=== PATIENT | female | born 1940 | race Caucasian/White ===

== ENCOUNTER 2019-01-22 13:51 | Observation (INO) | payer OTHER, BC ==
[2019-01-22] MEDS ORDERED: NA CHLORIDE 0.9% 1,000 ML ONE (14:15)
[2019-01-22 14:31] LABS: Absolute Lymphocytes (CBC) 2.3 K/uL (0.7-4.9); Basophils % 1.1 % (0-1.3); Hematocrit 34.1 % (36.0-45.0); Lymphocytes % 22.2 % (15.3-44.8); MPV 7.4 fL (7.6-11.3); RBC Red Blood Cell Count 3.66 M/uL (3.86-4.86)
[2019-01-22 14:36] LABS: Protime INR 1.24
[2019-01-22 14:49] LABS: ALT/SGPT 19 U/L (12-78); AST/SGOT 24 U/L (15-37); Albumin 2.6 g/dL (3.4-5.0); Alkaline Phosphatase 46 U/L (45-117); BUN Blood Urea Nitrogen 11 mg/dL (7-18); Bicarbonate 28 mmol/L (21-32); Bilirubin Direct 0.3 mg/dL (0-0.2); Bilirubin Total 0.8 mg/dL (0.2-1.0); Creatine Phosphokinase 58 U/L (26-192); Glucose Level 131 mg/dL (74-106); Lipase 62 U/L (73-393); Potassium 3.5 mmol/L (3.5-5.1); Protein, Total 6.2 g/dL (6.4-8.2); Sodium Level 135 mmol/L (136-145)
[2019-01-22 14:50] LABS: CKMB Creatine Kinase MB < 1.0 ng/mL (0.3-3.6); Troponin (Emerg Dept Use Only) 0.16 ng/mL (0.0-0.045)
--- NOTE | 2019-01-22 15:03 | RAD REPORT ---
EXAM DESCRIPTION: RAD - Chest Single View - 01/22/2019 2:33 pm CLINICAL HISTORY: Cough, shortness of breath COMPARISON: January 2011 TECHNIQUE: AP portable chest image was obtained 1430 hours . FINDINGS: Lung volumes are very low accentuating interstitial pattern. This could easily mask inters titial edema or infiltrate. No focal consolidation. Significant failure or volume overload are doubtf ul. Heart and vasculature are normal. No measurable pleural effusion and no pneumothorax. No acute eb ne finding. Right shoulder prosthesis in place. Severe left shoulder degenerative change present. Def ibrillator in place. No acute aortic findings suspected. IMPRESSION: Limited shallow inspiration film potentially masking early interstitial edema or infiltr ate.
[2019-01-22 15:05] LABS: Platelet Estimate ADEQ; Platelets, Giant PRESENT
[2019-01-22 15:06] LABS: Blood Morphology Comment NOT SEEN (NOT SEEN)
--- NOTE | 2019-01-22 15:50 | RAD REPORT ---
EXAM DESCRIPTION: CT - Head C Spine Cap Wo Con - 01/22/2019 3:39 pm CLINICAL HISTORY: Trauma, head and neck injury. Chest, abdomen and pelvis pain. Pain;Weakness COMPARISON: Chest Single View dated 01/22/2019 TECHNIQUE: CT head without contrast. CT cervical spine without contrast with coronal and sagittal reformatted images. CT chest, abdomen and pelvis without contrast with coronal and sagittal reformatted images of the spi ne. All CT scans are performed using dose optimization technique as appropriate and may include automated exposure control or mA/KV adjustment according to patient size. FINDINGS: CT HEAD WITHOUT CONTRAST: No intracranial hemorrhage, hydrocephalus or extra-axial fluid collection. Mild brain atrophy. No are as of brain edema or midline shift. Multifocal opacification is seen of the paranasal sinuses compatible with sinusitis. The calvarium is intact. CT CERVICAL SPINE WITHOUT CONTRAST: No acute fracture or subluxation. Moderate multilevel degenerative change throughout the cervical spi ne with mild degenerative anterolisthesis of C3 on 4, C4 on 5. Disc thinning with posterior osteophyt e formation noted C5-6 and C6-7. The prevertebral soft tissues are normal in thickness. CT CHEST, ABDOMEN, PELVIS WITHOUT CONTRAST: NOTE: Lack of contrast is a significant limitation in the assessment of trauma related findings. Spec ifically, solid organ, vascular and bowel evaluation is significantly limited. Interstitial opacities in both lungs noted probably representing mild interstitial pulmonary edema.Sm all bilateral pleural effusions are noted. Cardiac size is normal pacemaker wires present. No evidence of intra-abdominal visceral injury, free fluid or free air is seen within the above detai led limitations. No concerning pelvic findings. Advanced multilevel degenerative change throughout the thoracic and lumbar spine. Anterior wedge comp ression deformity of L4 is noted, age undetermined. Vacuum disc degeneration is present. IMPRESSION: Multifocal sinusitis. Mild CHF versus volume overload. Prominent degenerative change throughout the spine with anterior wedge deformity of L4, age undetermi cosmo but favored be chronic.
[2019-01-22] MEDS ORDERED: PANTOPRAZOLE 40 MG INJ ONE (15:51)
[2019-01-22] MEDS ORDERED: CEFEPIME 1 GM/100 ML BAG IV ONE (15:51)
[2019-01-22] MEDS ORDERED: HYDROCORTISONE SUC 100 MG INJ ONE (15:51)
--- NOTE | 2019-01-22 16:39 | EDPHYS ---
Physician Documentation [facility] Name: Dayana Sumner Age: 78 yrs Sex: Female : 1940 Arrival Date: 01/22/2019 Time: 13:52 Bed 6 Private MD: ED Physician Fernando Troy HPI: 01/22 15:15 This 78 yrs old Female presents to ER via EMS with complaints of Dizziness. devonte 15:15 The patient presents with dizziness. Onset: The symptoms/episode began/occurred 3 devonte day(s) ago. Context: occurred at home. Modifying factors: The symptoms are alleviated by nothing, the symptoms are aggravated by nothing. Associated signs and symptoms: Pertinent positives: abdominal pain, headache, near-syncope, shortness of breath. Patient's baseline: Neuro: alert and fully oriented. The patient has experienced similar episodes in the past, several times. Historical: - Allergies: 14:04 Codeine; ph - Home Meds: 14:04 Januvia oral oral [Active]; gabapentin oral oral [Active]; BP med [Active]; ph - PMHx: 14:04 Diabetes - NIDDM; Hypertension; neuropathy; ph - Immunization history:: Adult Immunizations unknown. - Social history:: Smoking status: Patient/guardian denies using tobacco. - Ebola Screening: : No symptoms or risks identified at this time. - Family history:: not pertinent. ROS: 15:15 Eyes: Negative for injury, pain, redness, and discharge, ENT: Negative for injury, devonte pain, and discharge, Neck: Negative for injury, pain, and swelling, Cardiovascular: Negative for chest pain, palpitations, and edema, Back: Negative for injury and pain, : Negative for injury, bleeding, discharge, and swelling, MS/Extremity: Negative for injury and deformity, Skin: Negative for injury, rash, and discoloration, Neuro: Negative for headache, weakness, numbness, tingling, and seizure, Psych: Negative for depression, anxiety, suicide ideation, homicidal ideation, and hallucinations, Allergy/Immunology: Negative for hives, rash, and allergies, Endocrine: Negative for neck swelling, polydipsia, polyuria, polyphagia, and marked weight changes, Hematologic/Lymphatic: Negative for swollen nodes, abnormal bleeding, and unusual bruising. 15:15 Respiratory: Positive for cough, shortness of breath. 15:15 Abdomen/GI: Positive for abdominal pain, abdominal cramps, abdominal distension. Exam: 15:15 Head/Face: Normocephalic, atraumatic. Eyes: Pupils equal round and reactive to light, devonte extra-ocular motions intact. Lids and lashes normal. Conjunctiva and sclera are non-icteric and not injected. Cornea within normal limits. Periorbital areas with no swelling, redness, or edema. ENT: Nares patent. No nasal discharge, no septal abnormalities noted. Tympanic membranes are normal and external auditory canals are clear. Oropharynx with no redness, swelling, or masses, exudates, or evidence of obstruction, uvula midline. Mucous membranes moist. Neck: Trachea midline, no thyromegaly or masses palpated, and no cervical lymphadenopathy. Supple, full range of motion without nuchal rigidity, or vertebral point tenderness. No Meningismus. Chest/axilla: Normal chest wall appearance and motion. Nontender with no deformity. No lesions are appreciated. Cardiovascular: Regular rate and rhythm with a normal S1 and S2. No gallops, murmurs, or rubs. Normal PMI, no JVD. No pulse deficits. Respiratory: Lungs have equal breath sounds bilaterally, clear to auscultation and percussion. No rales, rhonchi or wheezes noted. No increased work of breathing, no retractions or nasal flaring. Back: No spinal tenderness. No costovertebral tenderness. Full range of motion. Female : Normal external genitalia. MS/ Extremity: Pulses equal, no cyanosis. Neurovascular intact. Full, normal range of motion. Neuro: Awake and alert, GCS 15, oriented to person, place, time, and situation. Cranial nerves II-XII grossly intact. Motor strength 5/5 in all extremities. Sensory grossly intact. Cerebellar exam normal. Normal gait. Psych: Awake, alert, with orientation to person, place and time. Behavior, mood, and affect are within normal limits. 15:15 Abdomen/GI: Inspection: distension, Bowel sounds: normal, Palpation: mild abdominal tenderness, in all quadrants, Liver: no appreciated palpable abnormalities, Hernia: not appreciated. Vital Signs: 14:00 BP 88 / 57; Pulse 83; Resp 18; Temp 101.2(O); Pulse Ox 85% on R/A; Weight 62.6 kg; ph Height 4 ft. 9 in. (144.78 cm); Pain 0/10; 14:54 BP 93 / 59; Pulse 74; Resp 20; Temp 98.8(O); Pulse Ox 96% on 2 lpm NC; ph 16:50 BP 93 / 58; Pulse 70; Resp 15; Pulse Ox 97% on 2 lpm NC; em1 17:44 BP 91 / 54; Pulse 76; Resp 20; Pulse Ox 96% on 2 lpm NC; ph 18:10 BP 110 / 68; Pulse 71; Resp 20; Temp 98.4; Pulse Ox 97% on 2 lpm NC; ph 14:00 Body Mass Index 29.86 (62.60 kg, 144.78 cm) ph MDM: 13:53 Patient medically screened. [facility] 15:21 Data reviewed: vital signs, nurses notes, lab test result(s), EKG, radiologic studies, [facility] CT scan, plain films. 01/22 14:09 Order name: Basic Metabolic Panel; Complete Time: 15:12 ph 01/22 14:09 Order name: Blood Culture Adult (2) ph 01/22 14:09 Order name: CBC with Diff; Complete Time: 15:12 ph 01/22 14:09 Order name: Ckmb; Complete Time: 15:12 ph 01/22 14:09 Order name: CPK; Complete Time: 15:12 ph 01/22 14:09 Order name: Lactate; Complete Time: 15:12 ph 01/22 14:09 Order name: LFT's; Complete Time: 15:12 ph 01/22 14:09 Order name: Lipase; Complete Time: 15:12 ph 01/22 14:09 Order name: Procalcitonin; Complete Time: 16:33 ph 01/22 14:09 Order name: Protime (+inr); Complete Time: 15:12 ph 01/22 14:09 Order name: Ptt, Activated; Complete Time: 15:12 ph 01/22 14:09 Order name: Troponin (emerg Dept Use Only); Complete Time: 15:12 ph 01/22 14:09 Order name: Urine Microscopic Only; Complete Time: 18:10 ph 01/22 14:24 Order name: Glucose, Ancillary Testing; Complete Time: 15:12 EDMS 01/22 14:09 Order name: Chest Single View XRAY; Complete Time: 15:12 ph 01/22 15:06 Order name: Manual Differential; Complete Time: 15:12 EDMS 01/22 15:12 Order name: Urine Culture [facility] 01/22 15:12 Order name: Type And Screen; Complete Time: 17:21 devonte 01/22 15:22 Order name: CT Traumagram (Head C Spine CAP wo con); Complete Time: 16:33 devonte 01/22 16:34 Order name: Magnesium; Complete Time: 17:21 devonte 01/22 16:34 Order name: NT PRO-BNP; Complete Time: 17:21 devonte 01/22 16:39 Order name: Influenza Screen (a \T\ B); Complete Time: 18:10 devonte 01/22 16:46 Order name: Echo w/ Doppler [facility] 01/22 16:48 Order name: Urine Dipstick--Ancillary (enter results); Complete Time: 17:21 01/22 14:09 Order name: Accucheck; Complete Time: 14:17 ph 01/22 14:09 Order name: Cardiac monitoring; Complete Time: 14:09 ph 01/22 14:09 Order name: EKG - Nurse/Tech; Complete Time: 14:49 ph 01/22 14:09 Order name: IV Saline Lock - Large Bore; Complete Time: 14:09 ph 01/22 14:09 Order name: Labs collected and sent; Complete Time: 14:17 ph 01/22 14:09 Order name: O2 Per Protocol; Complete Time: 14:09 ph 01/22 14:09 Order name: O2 Sat Monitoring; Complete Time: 14:09 ph 01/22 14:09 Order name: Urine Dipstick-Ancillary (obtain specimen); Complete Time: 16:39 ph 01/22 16:34 Order name: EKG; Complete Time: 16:34 devonte 01/22 16:34 Order name: IV Saline Lock; Complete Time: 17:37 devonte Administered Medications: 14:17 Drug: NS 0.9% (30 ml/kg) 30 ml/kg {Note: pt to recieve 1800 mL.} Route: IV; Rate: ph bolus; Site: right wrist; 16:45 Follow up: Response: No adverse reaction; IV Status: Completed infusion ph 16:08 Drug: ProTONIX 40 mg Route: IVP; Site: right wrist; ph 17:44 Follow up: Response: No adverse reaction ph 16:11 Drug: Solu-CORTEF 100 mg Route: IVP; Site: right wrist; ph 17:44 Follow up: Response: No adverse reaction ph 16:11 Not Given (given by EMS): Tylenol 650 mg PO once ph 16:12 Drug: Cefepime 1 grams Route: IVPB; Rate: 200 ml/hr; Infused Over: 30 mins; Site: right ph wrist; 16:45 Follow up: Response: No adverse reaction; IV Status: Completed infusion ph 17:34 Drug: Aspirin 162 mg Route: PO; ph 17:43 Follow up: Response: No adverse reaction ph 18:21 Drug: Lasix 40 mg Route: IVP; Site: right wrist; ph 18:30 Follow up: Response: No adverse reaction ph 18:22 Drug: vancoMYCIN 1 grams Route: IVPB; Infused Over: 2 hrs; Site: right wrist; ph 18:30 Follow up: Response: No adverse reaction; IV Status: Infusion continued upon admission ph Point of Care Testing: Blood Glucose: 14:15 Blood Glucose: 134 mg/dL; ph Ranges: Critical Glucose Levels:Adult <50 mg/dl or >400 mg/dl <40 mg/dl or >180 mg/dl Disposition: 01/22/19 16:38 Hospitalization ordered by Veronica Montano for Inpatient Admission. Preliminary diagnosis are Dizziness and giddiness, Weakness, Unspecified combined systolic (congestive) and diastolic (congestive) heart failure, Fever, unspecified, Type 2 diabetes mellitus, Anemia, unspecified, Acute sinusitis - mutifocal. - Bed requested for Telemetry/MedSurg (Inpatient). - Status is Inpatient Admission. ph - Condition is Fair. - Problem is new. - Symptoms have improved. UTI on Admission? Yes Signatures: Dispatcher [employer] EDNY Fernando Troy MD MD cha Smirch, Shelby, RN RN ss Caitie Preciado RN RN ph Corrections: (The following items were deleted from the chart) 15:24 15:13 Chest Abdomen Pelvis Wo Con+CT.RAD.BRZ ordered. [facility] 16:38 15:13 [place] ordered. [facility] 16:41 16:38 Hospitalization Ordered by Veronica Montano MD for Inpatient Admission. Preliminary [facility] diagnosis is Dizziness and giddiness; Weakness; Unspecified combined systolic (congestive) and diastolic (congestive) heart failure; Fever, unspecified; Type 2 diabetes mellitus. Bed requested for Telemetry/MedSurg (Inpatient). Status is Inpatient Admission. Condition is Fair. Problem is new. Symptoms have improved. UTI on Admission? Yes. [facility] 17:24 16:41 01/22/2019 16:38 Hospitalization Ordered by Veronica Montano MD for Inpatient ss Admission. Preliminary diagnosis is Dizziness and giddiness; Weakness; Unspecified combined systolic (congestive) and diastolic (congestive) heart failure; Fever, unspecified; Type 2 diabetes mellitus; Anemia, unspecified; Acute sinusitis - mutifocal. Bed requested for Telemetry/MedSurg (Inpatient). Status is Inpatient Admission. Condition is Fair. Problem is new. Symptoms have improved. UTI on Admission? Yes. [facility] 18:31 17:24 01/22/2019 16:38 Hospitalization Ordered by Veronica Montano MD for Inpatient ph Admission. Preliminary diagnosis is Dizziness and giddiness; Weakness; Unspecified combined systolic (congestive) and diastolic (congestive) heart failure; Fever, unspecified; Type 2 diabetes mellitus; Anemia, unspecified; Acute sinusitis - mutifocal. Bed requested for Telemetry/MedSurg (Inpatient). Status is Inpatient Admission. Condition is Fair. Problem is new. Symptoms have improved. UTI on Admission? Yes. ss
--- NOTE | 2019-01-22 16:39 | ER ---
Nurse's Notes [facility] Name: Dayana Sumner Age: 78 yrs Sex: Female : 1940 Arrival Date: 01/22/2019 Time: 13:52 Bed 6 Private MD: Diagnosis: Dizziness and giddiness;Weakness;Unspecified combined systolic (congestive) and diastolic (congestive) heart failure;Fever, unspecified;Type 2 diabetes mellitus;Anemia, unspecified;Acute sinusitis-mutifocal Presentation: 01/22 13:53 Presenting complaint: EMS states: Pt reports dizziness x approx 1 month after starting ph Metformin, medication d/c after 3-4 days and pt currently taking Januvia, reports that she has been in bed for 2 days, attempted to get out of bed, became weak and slid to ground, denies injury from fall, BP 92-106 systolic, pt did not take BP meds this morning, HR in 70s, oral temp 101, BGL 138, 1 gram Tylenol administered. Transition of care: patient was not received from another setting of care. Onset of symptoms was January 22, 2019. Risk Assessment: Do you want to hurt yourself or someone else? Patient reports no desire to harm self or others. Initial Sepsis Screen: Does the patient meet any 2 criteria? Temp <36.0*C (96.8*F)) or > 38.3*C (100.9*F). Systolic BP < 90 mmHg. Does the patient have a suspected source of infection? Yes: Other: unknown. Care prior to arrival: Glucose check: 138. 13:53 [facility] 13:53 Acuity: HARSHIL 2 ph Historical: - Allergies: 14:04 Codeine; ph - Home Meds: 14:04 Januvia oral oral [Active]; gabapentin oral oral [Active]; BP med [Active]; ph - PMHx: 14:04 Diabetes - NIDDM; Hypertension; neuropathy; ph - Immunization history:: Adult Immunizations unknown. - Social history:: Smoking status: Patient/guardian denies using tobacco. - Ebola Screening: : No symptoms or risks identified at this time. - Family history:: not pertinent. Screenin:05 Abuse screen: Denies threats or abuse. Denies injuries from another. Nutritional ph screening: No deficits noted. Tuberculosis screening: No symptoms or risk factors identified. Fall Risk Fall in past 12 months (25 points). No secondary diagnosis (0 pts). IV access (20 points). Ambulatory Aid- Crutches/Cane/Walker (15 pts). Gait- Weak (10 pts.). Mental Status- Oriented to own ability (0 pts). Total Rob Fall Scale indicates High Risk Score (45 or more points). Fall prevention measures have been instituted. Side Rails Up X 2 Placed Close to Nursing Station Family Present and informed to notify staff if the need to leave the bedside As available patient and family educated on Fall Prevention Program and Strategies. Assessment: 14:06 General: Appears in no apparent distress. comfortable, ill, well groomed, Behavior is ph calm, cooperative, appropriate for age. Pain: Denies pain. Neuro: Level of Consciousness is awake, alert, obeys commands, Oriented to person, place, time, situation, Reports dizziness, weakness "all over". Cardiovascular: Capillary refill < 3 seconds in bilateral fingers Patient's skin is warm and dry. Respiratory: Reports cough that is Airway is patent Respiratory effort is even, unlabored, Respiratory pattern is regular, symmetrical, Denies shortness of breath. GI: Reports nausea, Patient currently denies abdominal pain, diarrhea, vomiting. : Denies burning with urination, urinary frequency. Derm: Skin is fragile, is thin, Skin is pale. Musculoskeletal: Circulation, motion, and sensation intact. Range of motion: intact in all extremities. 15:00 Reassessment: Patient appears in no apparent distress at this time. Patient and/or ph family updated on plan of care and expected duration. Pain level reassessed. Patient is alert, oriented x 3, equal unlabored respirations, skin warm/dry/pink. 16:15 Reassessment: Patient appears in no apparent distress at this time. Patient and/or ph family updated on plan of care and expected duration. Pain level reassessed. Patient is alert, oriented x 3, equal unlabored respirations, skin warm/dry/pink. 17:46 Reassessment: Patient appears in no apparent distress at this time. Patient and/or ph family updated on plan of care and expected duration. Pain level reassessed. Patient is alert, oriented x 3, equal unlabored respirations, skin warm/dry/pink. ERP at bedside to speak w/ pt. 18:11 Reassessment: Patient appears in no apparent distress at this time. Patient and/or ph family updated on plan of care and expected duration. Pain level reassessed. Patient is alert, oriented x 3, equal unlabored respirations, skin warm/dry/pink. Report called to Elise ALVA. Vital Signs: 14:00 BP 88 / 57; Pulse 83; Resp 18; Temp 101.2(O); Pulse Ox 85% on R/A; Weight 62.6 kg; ph Height 4 ft. 9 in. (144.78 cm); Pain 0/10; 14:54 BP 93 / 59; Pulse 74; Resp 20; Temp 98.8(O); Pulse Ox 96% on 2 lpm NC; ph 16:50 BP 93 / 58; Pulse 70; Resp 15; Pulse Ox 97% on 2 lpm NC; em1 17:44 BP 91 / 54; Pulse 76; Resp 20; Pulse Ox 96% on 2 lpm NC; ph 18:10 BP 110 / 68; Pulse 71; Resp 20; Temp 98.4; Pulse Ox 97% on 2 lpm NC; ph 14:00 Body Mass Index 29.86 (62.60 kg, 144.78 cm) ph ED Course: 13:52 Patient arrived in ED. ph 13:53 Fernando Troy MD is Attending Physician. devonte 14:00 Triage completed. ph 14:04 Arm band placed on Patient placed in an exam room, on a stretcher, on oxygen, on ph pediatric urologist, on pulse oximetry. 14:05 Patient has correct armband on for positive identification. Bed in low position. Call ph light in reach. Side rails up X2. Pulse ox on. NIBP on. Door closed. Noise minimized. Head of bed elevated. 14:14 Inserted saline lock: 20 gauge in right wrist, using aseptic technique. Blood collected.ss 14:16 Caitie Preciado, NIDA is Primary Nurse. ph 14:34 Chest Single View XRAY In Process Unspecified. EDMS 14:45 EKG done, by mechanical tech. reviewed by Fernando Troy MD. sm3 15:39 CT Traumagram (Head C Spine CAP wo con) In Process Unspecified. EDMS 16:37 Veronica Montano MD is Hospitalizing Provider. devonte 16:47 Straight cath inserted, using sterile technique, 16 Fr. Returned clear yellow urine. ss Patient tolerated well. 18:10 No provider procedures requiring assistance completed. Patient admitted, IV remains in ph place. Administered Medications: 14:17 Drug: NS 0.9% (30 ml/kg) 30 ml/kg {Note: pt to recieve 1800 mL.} Route: IV; Rate: ph bolus; Site: right wrist; 16:45 Follow up: Response: No adverse reaction; IV Status: Completed infusion ph 16:08 Drug: ProTONIX 40 mg Route: IVP; Site: right wrist; ph 17:44 Follow up: Response: No adverse reaction ph 16:11 Drug: Solu-CORTEF 100 mg Route: IVP; Site: right wrist; ph 17:44 Follow up: Response: No adverse reaction ph 16:11 Not Given (given by EMS): Tylenol 650 mg PO once ph 16:12 Drug: Cefepime 1 grams Route: IVPB; Rate: 200 ml/hr; Infused Over: 30 mins; Site: right ph wrist; 16:45 Follow up: Response: No adverse reaction; IV Status: Completed infusion ph 17:34 Drug: Aspirin 162 mg Route: PO; ph 17:43 Follow up: Response: No adverse reaction ph 18:21 Drug: Lasix 40 mg Route: IVP; Site: right wrist; ph 18:30 Follow up: Response: No adverse reaction ph 18:22 Drug: vancoMYCIN 1 grams Route: IVPB; Infused Over: 2 hrs; Site: right wrist; ph 18:30 Follow up: Response: No adverse reaction; IV Status: Infusion continued upon admission ph Point of Care Testing: Blood Glucose: 14:15 Blood Glucose: 134 mg/dL; ph Ranges: Outcome: 16:38 Decision to Hospitalize by Provider. devonte 18:10 Admitted to Tele accompanied by tech, family with patient, via stretcher, room 412, ph with oxygen, with chart, Report called to Elise ALVA 18:10 Condition: stable 18:10 Instructed on the need for admit. 18:31 Patient left the ED. ph Signatures: Dispatcher [employer] EDMS Fernando Troy MD MD cha Martinez, Eric em1 Radha Ford RN RN Caitie Preciado RN RN Tari Ramos 3 Corrections: (The following items were deleted from the chart) 15:18 14:54 BP 93 / 59; Pulse 74bpm; Resp 20bpm; Pulse Ox 96% 2 lpm Nasal Cannula; ph ph 17:41 14:20 NS 0.9% (30 ml/kg) 30 ml/kg IV at bolus in right wrist ph ph 17:42 14:17 NS 0.9% (30 ml/kg) 30 ml/kg IV at bolus in right wrist ph ph
[2019-01-22 16:46] LABS: Magnesium 1.9 mg/dL (1.8-2.4)
[2019-01-22 16:57] LABS: Urine Blood NEGATIVE (NEG); Urine Glucose NEGATIVE (NEG); Urine Protein TRACE (NEG); Urine Specific Gravity 1.025 (1.005-1.030)
[2019-01-22] MEDS ORDERED: ASPIRIN 81 MG CHEWABLE TABLET ONE (17:00)
[2019-01-22 17:21] LABS: Urine Bacteria >50 /HPF (<20); Urine Culture Reflex Order REFLEXED; Urine RBC <5 /HPF (NONE SEEN)
--- NOTE | 2019-01-22 17:42 | EKG ---
Test Date: 2019-01-22 Test Time: 14:30:33 Airline Captain: TABITHA MEASUREMENT RESULTS: Intervals: Rate: 77 RI: 176 QRSD: 136 QT: 426 QTc: 482 [place]: P: -15 RI: 176 QRS: -52 T: -12 INTERPRETIVE STATEMENTS: Normal sinus rhythm Right bundle branch block Left anterior fascicular block Bifascicular block Possible Lateral infarct, age undetermined Abnormal ECG Compared to ECG 01/28/2011 13:11:11 Right bundle-branch block now present Left anterior fascicular block now present Bifascicular block now present Myocardial infarct finding now present AV dual-paced complex(es) or rhythm no longer present Electronically Signed On 01-22-19 17:41:20 CDT by Junior Rudolph
[2019-01-22] MEDS ORDERED: VANCOMYCIN/NS 1 gm 1 GM/250 ML BAG IV ONE (18:00)
[2019-01-22] MEDS ORDERED: FUROSEMIDE 40 MG/4 ML VIAL IV SCH (18:00)
[2019-01-22] MEDS ORDERED: FUROSEMIDE 40 MG/4 ML VIAL ONE (18:15)
[2019-01-22 18:44] VITALS: BMI 31.2
--- NOTE | 2019-01-22 19:53 | P.HP ---
Certification for Inpatient Patient admitted to: Inpatient With expected LOS: >2 Midnights Patient will require the following post-hospital care: None Practitioner: I am a practitioner with admitting privileges, knowledge of patient current condition, hospital course, and medical plan of care. Services: Services provided to patient in accordance with Admission requirements found in Title 42 Section 412.3 of the Code of Federal Regulations Patient History Date of Service: 01/22/19 Primary Care Provider: Dr. Rubin; Cardiology-Dr. Tripp([place]) Reason for admission: Fatigue, dizziness History of Present Illness: 78-year-old female with history of CHF, pacemaker/defibrillator, spinal stenosis, diabetes mellitus type 2 and hypertension. Patient reports that over the last 2 days she had some edema to the lower extremity. She was told by her PCP to elevate her legs. She primarily stayed in bed over the last 2 days. She had poor oral intake during that time. She denied any fever, chills. She denied any nausea, vomiting. No sick contacts noted. She continued to have increased fatigue. She was not able to get out of bed appropriately. She was primarily using walker. Today she woke up felt lightheaded and fell as she was not able to hold herself. At that time EMS was called. In the ER patient was found to be slightly hypertensive with a blood pressure of 88/57. Respiratory rate 18. Room-air saturations around 85%. Lab showed white count of 10.6, hemoglobin 11.2. Sodium 135, potassium 3.5, creatinine 1.23 with a GFR 42. Glucose 131. Troponin elevated at 0.16. Lactic acid and pro calcitonin unremarkable. Urinalysis showed some bacteria. CT showed multifocal sinusitis, mild CHF and pigeon and changes to the spine with anterior wedge deformity of L4. This appeared chronic. Patient was given sepsis protocol IV fluids. Patient started no antibiotic therapy. Patient admitted for further evaluation. When I arrived to evaluate patient. Blood pressure improved. Patient did not appear septic. Patient is stable at this time. Allergies No Known Allergies Allergy (Unverified 01/22/19 18:49) Home medications list reviewed: Yes Home Medications: Ascorbic Acid [Vitamin C*] 500 mg PO DAILY 01/22/19 Aspirin [Aspirin EC 325 MG] 325 mg PO SEECOM 01/22/19 Atorvastatin Calcium [Lipitor*] 10 mg PO DAILY 01/22/19 Carvedilol 25 mg PO BID 01/22/19 Cholecalciferol (Vitamin D3) [Vitamin D3] 3,000 unit PO DAILY 01/22/19 Furosemide 20 mg PO DAILY 01/22/19 Gabapentin 300 mg PO DAILY 01/22/19 Gluc/Collins-MSM#1/C/Adrien/Matthew/Bor [Osteo Bi-Flex Caplet] 1 tab PO DAILY 01/22/19 Levothyroxine [Synthroid*] 0.05 mg PO 0600 01/22/19 [place]-3 Fatty Acids [[place]erson-3] 1,000 mg PO DAILY 01/22/19 Ondansetron HCl 8 mg PO Q6HP PRN 01/22/19 Promethazine HCl 25 mg PO Q8HP PRN 01/22/19 Sitagliptin Phosphate [Januvia] 25 mg PO DAILY 01/22/19 Valsartan 80 mg PO DAILY 01/22/19 Vit B Comp with C/Calcium Carb [B-Complex Plus Vitamin C Cplt] 1 tab PO DAILY - Past Medical/Surgical History Diabetic: Yes -: Diabetes mellitus type 2 [id number] -: Hypertension -: Hypothyroidism -: CHF -: Pacemaker/defibrillator -: Hyperlipidemia -: Degenerative disk and joint disease, spine -: Pacemaker defibrillator Psychosocial/ Personal History: Patient is - Family History Family History: Reviewed- Non-Contributory - Social History Smoking Status: Never smoker Alcohol use: No CD- Drugs: No Caffeine use: Yes Place of Residence: Home Review of Systems General: Fever, Weakness, Malaise, As per HPI Eyes: Unremarkable ENT: Unremarkable Respiratory: Unremarkable Cardiovascular: Unremarkable Gastrointestinal: Unremarkable Genitourinary: Unremarkable Musculoskeletal: As per HPI Integumentary: Unremarkable Neurological: As per HPI Lymphatics: Unremarkable Physical Examination - Vital Signs Temperature: 98.4 F Blood Pressure: 110/68 Pulse: 71 Respirations: 20 - Physical Exam General: Alert, In no apparent distress, Oriented x3, Cooperative HEENT: Atraumatic, Normocephalic, Other (Dry mucous membranes) Neck: Supple, No Thyromegaly Respiratory: Clear to auscultation bilaterally, Normal air movement Cardiovascular: Normal pulses, Regular rate/rhythm Gastrointestinal: Normal bowel sounds, Soft and benign, Non-distended, No tenderness, No masses, No rebound, No guarding Musculoskeletal: No erythema, No tenderness, No warmth Integumentary: No tenderness/swelling, No erythema, No warmth, No cyanosis Neurological: Normal speech, Normal strength at 5/5 x4 extr, Normal tone, Normal affect - Studies Laboratory Data (last 24 hrs) 01/22/19 14:10: Magnesium 1.9 01/22/19 14:10: PT 14.5 H, INR 1.24, APTT 30.9 01/22/19 14:10: WBC 10.6, Hgb 11.3 L, Hct 34.1 L, Plt Count 362 01/22/19 14:10: Sodium 135 L, Potassium 3.5, BUN 11, Creatinine 1.23, Glucose 131 H, Total Bilirubin 0.8, AST 24, ALT 19, Alkaline Phosphatase 46, Lipase 62 L Assessment and Plan - Plan Impression: Fatigue, dizziness secondary to UTI with dehydration Acute renal injury secondary dehydration Elevated troponin likely secondary to above Chronic diastolic CHF History pacemaker/defibrillator Multifocal sinusitis Diabetes mellitus type 2 [id number]-rksyishbv Hypertension Hypothyroidism Hyperlipidemia Degenerative disk and joint disease Plan: Fatigue, dizziness secondary to UTI with dehydration: Patient admitted for further evaluation and treatment. Will continue IV Rocephin. Blood, urine cultures obtained. Will monitor for sepsis. Lactic acid and pro calcitonin negative. Blood pressure now stable with fluid bolus. Will continue with gentle hydration due to her history of CHF. Will monitor the patient closely. Monitor lab closely. Will need to have physical therapy assess ambulation especially with her degenerative disk and joint disease. Will order echocardiogram to further evaluate. Will consult cardiology to address elevated troponin. I will turn the service over to Dr. Allred tomorrow. I will go over the plan of care with her. Acute renal injury secondary dehydration: Continue with gentle hydration. Will monitor and adjust appropriately. Electrolyte protocol in place. Elevated troponin likely secondary to above: Will obtain echocardiogram. Will consult cardiology to further evaluate. Chronic diastolic CHF: Will provide gentle hydration. Obtain echocardiogram. Cardiology consulted to further evaluate. History pacemaker/defibrillator: Overall stable Multifocal sinusitis: Will provide nasal steroid. Will continue with IV antibiotic therapy. Diabetes mellitus type 2 [id number]-mrhcmbcsx: Will check A1c. Will provide insulin sliding scale and monitor Accu-Cheks. Hypertension: Will hold blood pressure medication at this time. Will monitor and adjust medication. Hypothyroidism: Will check TSH and free T4. Continue with home medication. Hyperlipidemia: Continue home medication. Degenerative disk and joint disease: Will physical therapy assess ambulation. Will provide medication for pain. Patient uses walker at home. Patient may require home health and physical therapy at discharge. Discharge Plan: Home Plan to discharge in: 72 Hours - Advance Directives Does patient have a Living Will: No Does patient have a Durable POA for Healthcare: No - Code Status/Comfort Care Code Status Assessed: Yes (Patient is full code) Time Spent Managing Pts Care (In Minutes): 55
[2019-01-22] MEDS ORDERED: HYDROCODONE/APAP 5/325 MG TAB PO PRN (20:01)
[2019-01-22] MEDS ORDERED: TRAMADOL HCL 50 MG TAB PO PRN (20:01)
[2019-01-22] MEDS ORDERED: ONDANSETRON 4 MG/2 ML VIAL IV PRN (20:05)
[2019-01-22] MEDS ORDERED: ACETAMINOPHEN 500 MG TAB PO PRN (20:05)
[2019-01-22] MEDS ORDERED: CEFTRIAXONE 1 GM/NS 50 ML 1 GM/50 ML BAG IV SCH (21:00)
[2019-01-22] MEDS: FLUTICASONE 50MCG NASAL SPRAY NAS SCH (21:00)
[2019-01-22] MEDS ORDERED: NA CHLORIDE 0.9% 1,000 ML IV SCH (21:00)
[2019-01-22] MEDS: FAMOTIDINE 20 MG TAB PO SCH (21:23)
[2019-01-22] MEDS: ENOXAPARIN 30 MG/0.3 ML SQ SCH (21:23)
[2019-01-22] MEDS: CEFTRIAXONE/SWI 1gm 1 GM/10 ML SYR IV SCH (21:23)
[2019-01-22] MEDS: INSULIN -REGULAR HUMAN 50 UNIT/0.5 ML ML SQ SCH (22:23)
[2019-01-22] MEDS ORDERED: POTASSIUM CL SA 10 MEQ TAB PO ONE (22:27)
[2019-01-23 04:00] VITALS: O2SAT 95
[2019-01-23] MEDS: LEVOTHYROXINE SOD 0.05 MG TABLET PO SCH (05:24)
[2019-01-23 05:51] LABS: Absolute Lymphocytes (CBC) 0.9 K/uL (0.7-4.9); Basophils % 0.3 % (0-1.3); Hematocrit 30.6 % (36.0-45.0); Lymphocytes % 12.1 % (15.3-44.8); MPV 7.7 fL (7.6-11.3); RBC Red Blood Cell Count 3.36 M/uL (3.86-4.86)
[2019-01-23 06:31] LABS: Albumin 2.4 g/dL (3.4-5.0); Bilirubin Total 0.4 mg/dL (0.2-1.0); Ferritin 46.8 ng/mL (8-388); Phosphorus 2.3 mg/dL (2.5-4.9); Potassium 3.5 mmol/L (3.5-5.1); Protein, Total 5.9 g/dL (6.4-8.2); Thyroid Stimulating Hormone 0.466 uIU/mL (0.360-3.740)
--- NOTE | 2019-01-23 07:20 | RAD REPORT ---
EXAM DESCRIPTION: RAD - Chest Pa And Lat (2 Views) - 01/23/2019 6:50 am CLINICAL HISTORY: follow up CHF Chest pain. COMPARISON: Chest Single View dated 01/22/2019; CHEST SINGLE VIEW dated 01/28/2011; CHEST PA AND LAT 2 VIEW dated 09/13/2005 FINDINGS: Mild interstitial pulmonary edema is seen, mildly improved since comparative study. Small bilateral pleural effusions. The heart is mildly enlarged in size with a multilead pacer/defibrillato r device present. Right shoulder prosthesis. IMPRESSION: Mild improvement in CHF pattern since comparative study
[2019-01-23] MEDS: POTASS/SODIUM PHOSPHATE 1 PKT POWD.PACK PO SCH ×3 (07:23→09:59)
[2019-01-23] MEDS: INSULIN -REGULAR HUMAN 50 UNIT/0.5 ML ML SQ SCH ×4 (07:30→21:00)
[2019-01-23] MEDS ORDERED: POTASSIUM CL SA 10 MEQ TAB PO ONE (07:30)
[2019-01-23] MEDS: CEFTRIAXONE/SWI 1gm 1 GM/10 ML SYR IV SCH ×2 (08:31→21:00)
[2019-01-23] MEDS: ASCORBIC ACID 500 MG TABLET PO SCH (08:32)
[2019-01-23] MEDS: DOCOSAHEXANOIC AC/EPA 1000 MG PO SCH (08:32)
[2019-01-23] MEDS: ATORVASTATIN 10 MG TAB PO SCH (08:32)
[2019-01-23] MEDS: GABAPENTIN 300 MG CAP PO SCH (08:33)
[2019-01-23] MEDS: VITAMIN D 1000 UNIT TAB PO SCH (08:33)
[2019-01-23] MEDS: VITAMIN B COMPLEX 1 CAP PO SCH (08:34)
[2019-01-23] MEDS: FUROSEMIDE 40 MG/4 ML VIAL IV SCH (08:34)
[2019-01-23] MEDS: SITAGLIPTIN PHOS 100 MG TAB PO SCH (08:36)
[2019-01-23] MEDS ORDERED: ASPIRIN EC 325 MG TABLET PO SCH (09:00)
[2019-01-23] MEDS ORDERED: FUROSEMIDE 40 MG/4 ML VIAL IV SCH (09:00)
[2019-01-23] MEDS: FLUTICASONE 50MCG NASAL SPRAY NAS SCH ×2 (09:58→21:02)
[2019-01-23] MEDS: GLUCOSAM/CHONDROI 500mg-400mg PO SCH (09:59)
--- NOTE | 2019-01-23 10:08 | CON ---
History Of Present Illness: Mrs. Sumner is 78. She is known to have a previous diagnosis of rheumat oid arthritis, that diagnosis was withdrawn some 8 to 10 years ago. She does not have any of the typ ical joint findings of rheumatoid arthritis. She has coronary heart disease. A cardiac cath in 2004 showed a totally occluded vessel with collateral flow. No intervention was done. She had depressed ejection fraction and since 2004, she has had a defibrillator. She is followed by a preform machine operator in [place]. She has underlying congestive heart failure, diabetes, hypertension, dyslipidemia, hypothy roidism. Outpatient medications are atorvastatin, valsartan, carvedilol, levothyroxine, furosemide, cholecalci ferol, aspirin, Zofran, sitagliptin, promethazine, and gabapentin. She really started feeling bad ov er the past month when she was diagnosed with diabetes, first put on metformin that had to be stopped and since she has been on sitagliptin, her physicians told her to stop her Lasix. She started the L asix about a day or so ago. She noticed a lot of pedal edema and shortness of breath and trouble sta nding up. Every time she tried to stand, she was weak and would slump to the floor. There was no lo ss of consciousness. When she first came to the emergency room, her blood pressure was 88 systolic. Blood pressure right now is 130/59, pulse 74. Physical Examination: General: She is alert, oriented, pleasant. She is not in distress. Lungs: Revealed Velcro-type crackles, but it is basilar dependent. Heart: Exam is unremarkable. Abdomen: Obese. Extremities: No cyanosis or clubbing. There is mild edema. Distal pulses are palpable. Chest x-ray initially shows pulmonary edema. A second chest x-ray shows improvement in pulmonary jhonny ma. I believe the patient was probably hypotensive because of the combination of medications. She p robably needs to be on lower doses of Coreg and valsartan. An echocardiogram will help us decide wha t to do from there. She needs to be on some Lasix. I do not think she needs to be on any intravenou s fluids that will make it harder to remove the fluid from her lungs. I wonder why we are giving her vancomycin. I do not see an obvious indication. I will discuss it with Dr. Ruth. TONY/SALLY Voice ID: [id number] Report ID: [id number]
--- NOTE | 2019-01-23 10:54 | ECHO ---
HEIGHT: 4 ft 9 in WEIGHT: 144 lb 4.8 oz DATE OF STUDY: 01/23/[address]: Fernando Troy MD 2-DIMENSIONAL: YES M.MODE: YES DOPPLER: YES COLOR FLOW: YES TDS: NO PORTABLE: NO DEFINITY: NO BUBBLE STUDY: NO DIAGNOSIS: CONGESTIVE HEART FAILURE CARDIAC HISTORY: CATHERIZATION: YES SURGERY: NO PROSTHETIC VALVE: NO PACEMAKER: DEFIBRILLATOR MEASUREMENTS (cm) DIASTOLIC (NORMALS) SYSTOLIC (NORMALS) IVSd 0.9 (0.6-1.2) LA Diam 3.0 (1.9-4.0) LVEF 59% LVIDd 4.5 (3.5-5.7) LVIDs 3.1 (2.0-3.5) %FS 31% LVPWd 1.0 (0.6-1.2) Ao Diam 2.6 (2.0-3.7) 2 DIMENSIONAL ASSESSMENT: RIGHT ATRIUM: NORMAL LEFT ATRIUM: NORMAL RIGHT VENTRICLE: PACEMAKER IN RIGHT VENTRICLE LEFT VENTRICLE: NORMAL TRICUSPID VALVE: NORMAL MITRAL VALVE: NORMAL PULMONIC VALVE: NORMAL AORTIC VALVE: SCLEROSIS PERICARDIAL EFFUSION: NONE AORTIC ROOT: NORMAL LEFT VENTRICULAR WALL MOTION: NORMAL. DOPPLER/COLOR FLOW: MILD AORTIC, MITRAL AND TRICUSPID REGURGITATION. COMMENTS: NORMAL LEFT VENTRICULAR EJECTION FRACTION. PACEMAKER IN RIGHT VENTRICLE. AORTIC SCLEROSIS WITH NO AORTIC STENOSIS. MILD AORTIC, MITRAL AND TRICUSPID REGURGITATION. TECHNOLOGIST: ELMA YAN
--- NOTE | 2019-01-23 12:46 | P.PN ---
Subjective Date of Service: 01/23/19 Primary Care Provider: Dr. Rubin; Cardiology-Dr. Tripp([place]) Chief Complaint: Fatigue, dizziness Subjective: No C/O voiced, Ambulating, Improving, Working w/ PT, Doing well Review of Systems 10-point ROS is otherwise unremarkable Physical Examination - Vital Signs Temperature: 97.3 F Blood Pressure: 124/66 Pulse: 82 Respirations: 16 Pulse Ox (%): 93 - Physical Exam General: Alert, In no apparent distress HEENT: Atraumatic, PERRLA, EOMI Neck: Supple, JVD not distended Respiratory: Clear to auscultation bilaterally, Normal air movement Cardiovascular: Regular rate/rhythm, Normal S1 S2 Gastrointestinal: Normal bowel sounds, No tenderness Musculoskeletal: No tenderness Integumentary: No rashes Neurological: Normal speech, Normal tone, Normal affect Lymphatics: No axilla or inguinal lymphadenopathy - Studies Laboratory Data (last 24 hrs) 01/22/19 14:10: Magnesium 1.9 01/22/19 14:10: PT 14.5 H, INR 1.24, APTT 30.9 01/22/19 14:10: WBC 10.6, Hgb 11.3 L, Hct 34.1 L, Plt Count 362 01/22/19 14:10: Sodium 135 L, Potassium 3.5, BUN 11, Creatinine 1.23, Glucose 131 H, Total Bilirubin 0.8, AST 24, ALT 19, Alkaline Phosphatase 46, Lipase 62 L Medications List Reviewed: Yes Assessment And Plan - Current Problems (Diagnosis) (1) Acute exacerbation of CHF (congestive heart failure) Current Visit: Yes Status: Acute Plan: Acute CHF exacerbation -On IV lasix now. Will continue it here -Cardiology consult. Appreciate [facility] Qualifiers: Heart failure type: systolic Qualified Code(s): I50.23 - Acute on chronic systolic (congestive) heart failure (2) UTI (urinary tract infection) Current Visit: Yes Status: Acute Plan: pt with Possible UTI -Urine Culture pending -IV rocephin for now -Will f.u with Urine Culture Qualifiers: Urinary tract infection type: acute cystitis Hematuria presence: without hematuria Qualified Code(s): N30.00 - Acute cystitis without hematuria (3) HTN (hypertension) Current Visit: Yes Status: Chronic Qualifiers: Hypertension type: essential hypertension Qualified Code(s): I10 - Essential (primary) hypertension (4) Hyperlipidemia Current Visit: Yes Status: Chronic Qualifiers: Hyperlipidemia type: mixed hyperlipidemia Qualified Code(s): E78.2 - Mixed hyperlipidemia Discharge Plan: Home Plan to discharge in: Greater than 2 days - Code Status/Comfort Care Code Status Assessed: Yes Critical Care: No
[2019-01-23] MEDS: ENOXAPARIN 30 MG/0.3 ML SQ SCH (16:57)
[2019-01-23] MEDS: FAMOTIDINE 20 MG TAB PO SCH (21:00)
[2019-01-23] MEDS ORDERED: ROPINIROLE HCL 0.25 MG TAB PO PRN (21:20)
[2019-01-24] MEDS: LEVOTHYROXINE SOD 0.05 MG TABLET PO SCH (05:11)
[2019-01-24 05:57] LABS: Absolute Lymphocytes (CBC) 1.8 K/uL (0.7-4.9); Basophils % 0.9 % (0-1.3); Hematocrit 30.5 % (36.0-45.0); Lymphocytes % 17.9 % (15.3-44.8); MPV 7.6 fL (7.6-11.3); RBC Red Blood Cell Count 3.34 M/uL (3.86-4.86)
[2019-01-24 06:03] LABS: Albumin 2.5 g/dL (3.4-5.0); Bilirubin Total 0.4 mg/dL (0.2-1.0); Phosphorus 2.8 mg/dL (2.5-4.9); Potassium 3.5 mmol/L (3.5-5.1); Protein, Total 5.9 g/dL (6.4-8.2)
[2019-01-24] MEDS: INSULIN -REGULAR HUMAN 50 UNIT/0.5 ML ML SQ SCH ×2 (07:30→11:30)
[2019-01-24] MEDS ORDERED: POTASSIUM CL SA 10 MEQ TAB PO ONE (07:30)
[2019-01-24] MEDS: FLUTICASONE 50MCG NASAL SPRAY NAS SCH (09:00)
[2019-01-24] MEDS: SITAGLIPTIN PHOS 100 MG TAB PO SCH (09:15)
[2019-01-24] MEDS: DOCOSAHEXANOIC AC/EPA 1000 MG PO SCH (09:16)
[2019-01-24] MEDS: VITAMIN D 1000 UNIT TAB PO SCH (09:16)
[2019-01-24] MEDS: ATORVASTATIN 10 MG TAB PO SCH (09:17)
[2019-01-24] MEDS: ASCORBIC ACID 500 MG TABLET PO SCH (09:18)
[2019-01-24] MEDS: GABAPENTIN 300 MG CAP PO SCH (09:18)
[2019-01-24] MEDS: GLUCOSAM/CHONDROI 500mg-400mg PO SCH (09:21)
[2019-01-24] MEDS: CEFTRIAXONE/SWI 1gm 1 GM/10 ML SYR IV SCH (09:21)
[2019-01-24] MEDS: FUROSEMIDE 40 MG/4 ML VIAL IV SCH (09:21)
[2019-01-24] MEDS: VITAMIN B COMPLEX 1 CAP PO SCH (09:26)
[2019-01-24 12:29] VITALS: BP 130/64; TEMP 98.5
--- NOTE | 2019-01-24 12:39 | P.SSS ---
Patient History Date of Service: 01/24/19 Primary Care Provider: Dr. Rubin; Cardiology-Dr. Tripp([place]) Reason for admission: Fatigue, dizziness History of Present Illness: 78-year-old female with history of CHF, pacemaker/defibrillator, spinal stenosis, diabetes mellitus type 2 and hypertension. Patient reports that over the last 2 days she had some edema to the lower extremity. She was told by her PCP to elevate her legs. She primarily stayed in bed over the last 2 days. She had poor oral intake during that time. She denied any fever, chills. She denied any nausea, vomiting. No sick contacts noted. She continued to have increased fatigue. She was not able to get out of bed appropriately. She was primarily using walker. Today she woke up felt lightheaded and fell as she was not able to hold herself. At that time EMS was called. In the ER patient was found to be slightly hypertensive with a blood pressure of 88/57. Respiratory rate 18. Room-air saturations around 85%. Lab showed white count of 10.6, hemoglobin 11.2. Sodium 135, potassium 3.5, creatinine 1.23 with a GFR 42. Glucose 131. Troponin elevated at 0.16. Lactic acid and pro calcitonin unremarkable. Urinalysis showed some bacteria. CT showed multifocal sinusitis, mild CHF and pigeon and changes to the spine with anterior wedge deformity of L4. This appeared chronic. Patient was given sepsis protocol IV fluids. Patient started no antibiotic therapy. Patient admitted for further evaluation. When I arrived to evaluate patient. Blood pressure improved. Patient did not appear septic. Patient is stable at this time. Allergies codeine Adverse Reaction (Severe, Verified 01/22/19 21:26) Nausea/Vomiting Home Medications: Ascorbic Acid [Vitamin C*] 500 mg PO DAILY 01/22/19 Aspirin [Aspirin EC 325 MG] 325 mg PO SEECOM 01/22/19 Atorvastatin Calcium [Lipitor*] 10 mg PO DAILY 01/22/19 Carvedilol 25 mg PO BID 01/22/19 Cholecalciferol (Vitamin D3) [Vitamin D3] 3,000 unit PO DAILY 01/22/19 Furosemide 20 mg PO DAILY 01/22/19 Gabapentin 300 mg PO DAILY 01/22/19 Gluc/Collins-MSM#1/C/Adrien/Matthew/Bor [Osteo Bi-Flex Caplet] 1 tab PO DAILY 01/22/19 Levothyroxine [Synthroid*] 0.05 mg PO 0600 01/22/19 [place]-3 Fatty Acids [[place]-3] 1,000 mg PO DAILY 01/22/19 Ondansetron HCl 8 mg PO Q6HP PRN 01/22/19 Promethazine HCl 25 mg PO Q8HP PRN 01/22/19 Sitagliptin Phosphate [Januvia] 25 mg PO DAILY 01/22/19 Valsartan 80 mg PO DAILY 01/22/19 Vit B Comp with C/Calcium Carb [B-Complex Plus Vitamin C Cplt] 1 tab PO DAILY Amox/Clavulanate [Augmentin 500-125 mg Tab] 500 mg PO BID #28 tab 01/24/19 Ropinirole HCl [Requip*] 0.25 mg PO BEDTIME PRN #15 tab 01/24/19 - Past Medical/Surgical History Has patient received pneumonia vaccine in the past: Yes Diabetic: Yes -: Diabetes mellitus type 2 [id number]-nxeyupccv -: Hypertension -: Hypothyroidism -: CHF -: Pacemaker/defibrillator -: Hyperlipidemia -: Degenerative disk and joint disease, spine -: spinal stenosis -: Pacemaker defibrillator -: bilateral knee replacements -: r shoulder replaced Psychosocial/ Personal History: Patient is - Family History Family History: Reviewed- Non-Contributory - Family History Father -: Heart disease, Hypertension, GI disease Mother -: Hypertension, Cancer Notes: uterine ca. thyroid ca Brother -: Heart disease, Hypertension Notes: 58 yo mi - Social History Smoking Status: Never smoker Alcohol use: No CD- Drugs: No Caffeine use: Yes Place of Residence: Home Review of Systems 10-point ROS is otherwise unremarkable Physical Examination - Vital Signs Temperature: 98.5 F Blood Pressure: 130/64 Pulse: 81 Respirations: 16 Pulse Ox (%): 95 - Physical Exam General: Alert, In no apparent distress HEENT: Atraumatic, PERRLA, Mucous membr. moist/pink, EOMI, Sclerae nonicteric Neck: Supple, 2+ carotid pulse no bruit, No LAD, Without JVD or thyroid abnormality Respiratory: Clear to auscultation bilaterally, Normal air movement Cardiovascular: Regular rate/rhythm, Normal S1 S2 Gastrointestinal: Normal bowel sounds, No tenderness Musculoskeletal: No tenderness Integumentary: No rashes Neurological: Normal gait, Normal speech, Normal strength at 5/5 x4 extr, Normal tone, Normal affect Lymphatics: No axilla or inguinal lymphadenopathy - Studies Microbiology Data (last 24 hrs): 01/22/19 16:41 Clean Catch Urine [place] Count - Final >100,000 CFU/ML. 01/22/19 16:41 Clean Catch Urine - Final Escherichia Coli - Diagnosis (Problem(s)) (1) Acute exacerbation of CHF (congestive heart failure) Current Visit: Yes Status: Acute Plan: Acute CHF exacerbation -improved markedly after IV Lasix. Cardiology consult. Cleared for discharge home. Qualifiers: Heart failure type: systolic Qualified Code(s): I50.23 - Acute on chronic systolic (congestive) heart failure (2) UTI (urinary tract infection) Current Visit: Yes Status: Acute Plan: pt with Possible UTI Urine culture positive for E. coli. Discharged home on p.o. Augmentin Qualifiers: Urinary tract infection type: acute cystitis Hematuria presence: without hematuria Qualified Code(s): N30.00 - Acute cystitis without hematuria (3) HTN (hypertension) Current Visit: Yes Status: Chronic Qualifiers: Hypertension type: essential hypertension Qualified Code(s): I10 - Essential (primary) hypertension (4) Hyperlipidemia Current Visit: Yes Status: Chronic Qualifiers: Hyperlipidemia type: mixed hyperlipidemia Qualified Code(s): E78.2 - Mixed hyperlipidemia - Disposition Disposition: ROUTINE DISCHARGE Condition: GOOD Patient Discharge Instructions: Change to the current medication. Please ONLY TAKE 1/5 OF THE FOLLOWING. Carvedilol. Valsartan. . So your new dose will be Carvedilol 12.5mg BID and Valsartan 40mg daily Diet: Regular Activity: Ad fior
--- NOTE | 2019-01-24 21:03 | PN ---
Date of Progress Note: 01/24/2019 Ms. Sumner is 78, who was admitted by Dr. Allred for congestive heart failure. Dr. Feliciano has been fo llowing her. She is a patient of . Her technical assoc in [place]. She has a history of CHF, CAD, defibrillator, hypertension, diabetes, dyslipidemia. Echocardiogram which was done yester day showed normal ejection fraction. She was hypotensive when she came in. She is now on half the d ose of Coreg, half the dose of valsartan that she was taking at home. She is on Lasix. She is doing well. She can go home on her present regimen. She should see technical assoc in the near f wojciech. FAINA/SALLY Voice ID: [id number] Report ID: [id number]
--- OUTSIDE RECORDS SUMMARY | 2019-02-03 15:36 | XMS REPORT ---
:1940 [facility] Address [address] [place] [address] Dr. Ibrahim [address] [place] [id number] Care Team Providers Name Role Phone Unavailable Unavailable Unavailable Problems This patient has no known problems. Allergies, Adverse Reactions, Alerts This patient has no known allergies or adverse reactions. Medications This patient has no known medications. Encounters Start End Encounter Admission Attending Care Care Encounter Date/Time Date/Time Type Type Clinicians Facility Department ID 2018-08-02 2018-08-02 Outpatient [facility] [id number] 08:53:00 08:53:00 2018-07-12 2018-07-12 Outpatient [facility] [id number] 07:41:00 07:41:00
== END 2019-01-24 12:45 | disposition home health service (06) ==
LOC: ER 13:51 → ERHOLD 17:07 → 4TH 18:11
PROVIDERS: ADMIT Family Medicine; ATTEND Family Medicine
DX: I50.43 Acute on chronic combined systolic (congestive) and diastolic (congestive) heart failure (principal); N30.00 Acute cystitis without hematuria; E11.9 Type 2 diabetes mellitus without complications; I10 Essential (primary) hypertension; E03.9 Hypothyroidism, unspecified; E78.5 Hyperlipidemia, unspecified; N39.0 Urinary tract infection, site not specified; E86.0 Dehydration; N17.9 Acute kidney failure, unspecified; J32.9 Chronic sinusitis, unspecified; M19.90 Unspecified osteoarthritis, unspecified site; Z95.810 Presence of automatic (implantable) cardiac defibrillator
CPT/HCPCS: 96365; 96361; 93005; 93306; 87040 ×2; 87088; 85025 ×3; 87086; 80048; 36415 ×2; 86900; 83735; 86850; 82550; 84100 ×2; 85610; 80061; 86901; 82947 ×9; 80076; 83605; 85730; 84443; 87077; 87186; 83036; 84484 ×4; 82553; 82728; 82607; 83690; 83540; 80053 ×2; 84145; 83880; 84466; 87804 ×2; 70450; 71250; 72125; 71045; 71046; 97112; 97116 ×2; 97161; 97530 ×2; 51702; 96375; 99285; J1940 ×3; C9113; J1650 ×2; J3370; J0696 ×4; J0692; J7030 ×2; J1720; G0378 ×4; 81003; 81015

== ENCOUNTER 2019-05-09 16:13 | Observation (INO) | payer OTHER, BC ==
--- OUTSIDE RECORDS SUMMARY | 2019-05-09 16:42 | XMS REPORT ---
:1940 [facility] Address [address] [place] [address] Dr. Ibrahim [address] [place] [id number] Care Team Providers Name Role Phone Unavailable Unavailable Unavailable Problems This patient has no known problems. Allergies, Adverse Reactions, Alerts This patient has no known allergies or adverse reactions. Medications This patient has no known medications. Encounters Start End Encounter Admission Attending Care Care Encounter Date/Time Date/Time Type Type Clinicians Facility Department ID 2018-08-02 2018-08-02 Outpatient [facility] [id number] 08:53:00 08:53:00 2018-07-12 2018-07-12 Outpatient [facility] [id number] 07:41:00 07:41:00
[2019-05-09 17:26] LABS: Absolute Lymphocytes (CBC) 1.5 K/uL (0.7-4.9); Basophils % 0.7 % (0-1.3); Lymphocytes % 17.5 % (15.3-44.8); RBC Red Blood Cell Count 4.56 M/uL (3.86-4.86)
[2019-05-09 17:31] LABS: Protime INR 1.33
--- NOTE | 2019-05-09 17:35 | RAD REPORT ---
EXAM DESCRIPTION: RAD - Chest Single View - 05/09/2019 5:15 pm CLINICAL HISTORY: AMS, shortness of breath COMPARISON: Chest Pa And Lat (2 Views) dated 01/23/2019; Chest Single View dated 01/22/2019 TECHNIQUE: AP portable chest image was obtained 05/09/2019 5:15 pm . FINDINGS: Lung volumes are low. This accentuates the baseline interstitial lung pattern. No peripher al mass or consolidation. Mild interstitial edema or infiltrate can be masked by the chronic lung pat tern. Left-sided defibrillator in place. Right shoulder prosthesis in place. Severe left shoulder deg enerative changes are present. Heart size is upper normal. No measurable pleural effusion and no pneu mothorax. No acute bony abnormality seen. No acute aortic findings suspected. IMPRESSION: Chronic interstitial lung disease is present potentially masking mild edema or infiltrat e.
[2019-05-09 17:46] LABS: ALT/SGPT 15 U/L (12-78); AST/SGOT 30 U/L (15-37); Alkaline Phosphatase 55 U/L (45-117); BUN Blood Urea Nitrogen 6 mg/dL (7-18); Bicarbonate 26 mmol/L (21-32); Bilirubin Direct 0.5 mg/dL (0-0.2); Bilirubin Total 1.2 mg/dL (0.2-1.0); Glucose Level 85 mg/dL (74-106); Magnesium 1.5 mg/dL (1.8-2.4); NT PRO-BNP 4873 pg/mL (<450); Protein, Total 6.7 g/dL (6.4-8.2); Sodium Level 137 mmol/L (136-145); Troponin (Emerg Dept Use Only) < 0.02 ng/mL (0.0-0.045)
[2019-05-09 17:49] LABS: Potassium 2.8 mmol/L (3.5-5.1)
--- NOTE | 2019-05-09 18:17 | RAD REPORT ---
EXAM DESCRIPTION: CT - Head Brain Wo Cont - 05/09/2019 5:49 pm CLINICAL HISTORY: MENTAL STATUS CHANGE COMPARISON: HEAD BRAIN W O CONTRAST dated 05/16/2007 TECHNIQUE: Axial 5 mm thick images of the head were obtained without IV contrast. All CT scans are performed using dose optimization technique as appropriate and may include automated exposure control or mA/KV adjustment according to patient size. FINDINGS: No intracranial hemorrhage, mass, edema or shift of mid-line structures. No acute infarcti on changes seen. Mild atrophy and chronic ischemic change similar to comparison. Ventricles are in pr oportion to any volume loss. Arterial and physiologic calcifications are present. Mastoid air cells are clear. Small air-fluid level present in the right maxillary sinus. There is com plete opacification of the left maxillary sinus frontal sinuses and partial opacification of the ethm oid and sphenoid sinuses. No sclerotic or expansile bony change. No acute bony findings. IMPRESSION: No hemorrhage, edema or acute intracranial finding. Minimal atrophy and chronic ischemic change showing only minimal progression from 2007. Acute and chronic sinusitis.
[2019-05-09 18:56] LABS: Anisocytosis 2+; Blood Morphology Comment NOTED (NOT SEEN); Platelet Estimate ADEQ; Poikilocytosis 1+; White Blood Cell Scan OK
[2019-05-09] MEDS ORDERED: POTASSIUM 25 MEQ EFFERV TAB ONE (19:17)
[2019-05-09] MEDS ORDERED: NA CHLORIDE 0.9% 250 ML ONE (19:17)
[2019-05-09] MEDS ORDERED: Magnesium Sulfate 2gm IVPB 2 G/50 ML BAG IV ONE (19:18)
--- NOTE | 2019-05-09 20:08 | ER ---
Nurse's Notes [facility] Name: Dayana Sumner Age: 78 yrs Sex: Female : 1940 Arrival Date: 05/09/2019 Time: 16:19 Bed 15 Private MD: Charisse Rubin Diagnosis: Altered mental status, unspecified;Hypokalemia;Hypomagnesemia Presentation: 05/09 16:28 Presenting complaint: states: My son is a doctor in [place] and he ca1 talked to her last night and picked up on some things. He may have had a stroke, She can't complete a sentence, and it takes a long time for her to process things. She seems confused. I picked up on it yesterday morning. And my son noticed it last night when they talked over the phone. Transition of care: patient was not received from another setting of care. Onset of symptoms was May 09, 2019. Risk Assessment: Do you want to hurt yourself or someone else? Patient reports no desire to harm self or others. Initial Sepsis Screen: Does the patient meet any 2 criteria? No. Patient's initial sepsis screen is negative. Does the patient have a suspected source of infection? No. Patient's initial sepsis screen is negative. Care prior to arrival: None. 16:28 Method Of Arrival: Wheelchair ca1 16:28 Acuity: HARSHIL 3 ca1 Triage Assessment: 16:38 General: Appears in no apparent distress. comfortable, Behavior is calm, cooperative, ca1 appropriate for age. Neuro: Level of Consciousness is awake, alert, obeys commands, Oriented to person, place, time, situation, Appropriate for age. Historical: - Allergies: 16:37 Codeine; ca1 - PMHx: 16:37 Diabetes - NIDDM; Hypertension; neuropathy; ca1 - Immunization history:: Adult Immunizations up to date, Pneumococcal vaccine is up to date, Flu vaccine is up to date. - Coronavirus screen:: The patient has NOT traveled to [place] in the past 14 days. The patient has NOT had contact with known/suspected case of Coronavirus?. - Social history:: Smoking status: Patient denies any tobacco usage or history of. - Ebola Screening: : Patient negative for fever greater than or equal to 101.5 degrees Fahrenheit, and additional compatible Ebola Virus Disease symptoms Patient denies exposure to infectious person Patient denies travel to an Ebola-affected area in the 21 days before illness onset No symptoms or risks identified at this time. Screenin:58 Abuse screen: Denies threats or abuse. Nutritional screening: No deficits noted. Tuberculosis screening: No symptoms or risk factors identified. Fall Risk None identified. Assessment: 17:05 General: Appears in no apparent distress. Behavior is cooperative. Pain: Denies pain. 17:05 Pain: Denies pain. Neuro: Level of Consciousness is awake, alert, obeys commands, ah Oriented to person, place, situation, Answering Service Agent are equal bilaterally weak bilaterally Moves all extremities. Speech is normal, Pupils are PERRLA, Reports states that at home, she was having difficulty completing sentences. He stated that she would say 3 or 4 words and stop and start over and say the same 3 or 4 words. He states that something just seemed off. Cardiovascular: Heart tones S1 S2 present Capillary refill < 3 seconds Patient's skin is warm and dry. Pulses are palpable in right radial artery, right dorsalis pedis artery, left radial artery and left dorsalis pedis artery. Respiratory: Airway is patent Respiratory effort is even, unlabored, Respiratory pattern is regular, symmetrical, Breath sounds are clear bilaterally. GI: Abdomen is non-distended, Bowel sounds present X 4 quads. : No signs and/or symptoms were reported regarding the genitourinary system. Derm: Skin is intact, is healthy with good turgor, Skin is dry, Skin is pink, warm \T\ dry. 18:09 Reassessment: Patient appears in no apparent distress at this time. Patient and/or hb family updated on plan of care and expected duration. Pain level reassessed. Patient is alert, oriented x 3, equal unlabored respirations, skin warm/dry/pink. 19:00 Reassessment: Patient appears in no apparent distress at this time. Patient and/or rv family updated on plan of care and expected duration. Pain level reassessed. Patient is alert, oriented x 3, equal unlabored respirations, skin warm/dry/pink. 21:00 Reassessment: Patient appears in no apparent distress at this time. Patient and/or rv family updated on plan of care and expected duration. Pain level reassessed. Patient is alert, oriented x 3, equal unlabored respirations, skin warm/dry/pink. awaiting room availability from the floor. Vital Signs: 16:37 BP 152 / 81; Pulse 73; Resp 16 S; Temp 98.2(O); Pulse Ox 94% on R/A; Weight 57.15 kg ca1 (R); Height 4 ft. 9 in. (144.78 cm) (R); 17:30 BP 172 / 87; Pulse 72; Resp 14; Pulse Ox 99% on R/A; hb 18:15 BP 163 / 86; Pulse 71; Resp 19; Pulse Ox 96% on R/A; hb 19:00 BP 160 / 88; Pulse 76; Resp 16; Pulse Ox 99% on R/A; rv 20:00 BP 166 / 86; Pulse 81; Resp 16; Pulse Ox 98% on R/A; rv 21:07 BP 161 / 90; Pulse 84; Resp 15; Pulse Ox 98% on R/A; rv 16:37 Body Mass Index 27.27 (57.15 kg, 144.78 cm) ca1 NIH Stroke Scale Scores: 17:30 NIHSS Score: 0 cp ED Course: 16:19 Patient arrived in ED. ag5 16:20 Charisse Rubin MD is Private Physician. ag5 16:35 Triage completed. ca1 16:37 Arm band placed on right wrist. ca1 16:46 Fernando Mesa PA is PHCP. cp 16:46 Jorge August MD is Attending Physician. cp 17:02 Amanda Subramanian, NIDA is Primary Nurse. hb 17:14 Inserted saline lock: 20 gauge in right antecubital area, using aseptic technique. hb Blood collected. 17:[address] via stretcher. hb 17:[address] from CT. ah 17:58 Patient has correct armband on for positive identification. Bed in low position. Call light in reach. Side rails up X 1. Adult w/ patient. 20:06 Prince Robertson MD is Hospitalizing Provider. cp 21:09 No provider procedures requiring assistance completed. Patient admitted, IV remains in rv place. Administered Medications: 19:23 Drug: Magnesium Sulfate 2 grams Route: IVPB; Infused Over: 2 hrs; Site: right forearm; rv 21:11 Follow up: IV Status: Completed infusion rv 20:10 Drug: Potassium Effervescent Tablet 50 mEq Route: PO; rv 21:10 Follow up: Response: No adverse reaction rv 20:45 Drug: Aspirin Chewable Tablet 81 mg Route: PO; rv 21:10 Follow up: Response: No adverse reaction rv Outcome: 20:07 Decision to Hospitalize by Provider. cp 21:11 Admitted to Tele accompanied by elinor, via stretcher, room 401, with chart, Report rv called to DONI ALVA 21:11 Condition: good 21:11 Discharge instructions given to patient, family, Instructed on the need for admit, Demonstrated understanding of instructions. 22:07 Patient left the ED. rv NIH Stroke Scale - NIH Stroke Score Date: 05/09/2019 Time: 17:30 Total Score = 0 1a. Level of Consciousness (LOC) - 0(Alert) 1b. Level of Consciousness (LOC) (Year \T\ Age) - 0(Both) 1c. LOC Commands (Open \T\ Closes Eyes/Lining Feller Blindstitch) - 0(Both) 2. Best Gaze (Lateral Gaze Paresis) - 0(Normal) 3. Visual Field Loss - 0(No visual loss) 4. Facial Palsy - 0(Normal) 5a. Left Arm: Motor (10-second hold) - 0(No drift) 5b. Right Arm: Motor (10-second hold) - 0(No drift) 6a. Left Leg: Motor (5-second hold - always test supine) - 0(No drift) 6b. Right Leg: Motor (5-second hold - always test supine) - 0(No drift) 7. Limb Ataxia (finger/nose \T\ heel/forde - test with eyes open) - 0(Absent) 8. Sensory Loss (pinprick arms/legs/face) - 0(Normal) 9. Best Language: Aphasia (description/naming/reading) - 0(No aphasia) 10. Dysarthria (speech clarity - read or repeat words) - 0(Normal) 11. Extinction and Inattention (visual/tactile/auditory/spatial/personal) - 0(No abnormality) Initials: cp Signatures: Fernando Mesa PA PA cp Baxter, Heather, RN RN hb Vicente, Ronaldo, RN RN rv Acob, Cheryl, RN RN ca1 Gaskin, Ajare ag5 Mary Feliciano RN RN Corrections: (The following items were deleted from the chart) 17:53 17:05 General: Appears in no apparent distress. Behavior is cooperative, [facility] 17:56 17:46 Pain: Denies pain. [facility] 17:56 17:46 Neuro: Level of Consciousness is awake, alert, obeys commands, Oriented to person, place, situation, Answering Service Agent are equal bilaterally weak bilaterally Moves all extremities. Speech is normal, Pupils are PERRLA, [facility]:56 17:46 Cardiovascular: Heart tones S1 S2 present Capillary refill < 3 seconds Patient's skin is warm and dry. Pulses are palpable in right radial artery, right dorsalis pedis artery, left radial artery and left dorsalis pedis artery 17:56 17:46 Respiratory: Airway is patent Respiratory effort is even, unlabored, Respiratory pattern is regular, symmetrical, Breath sounds are clear bilaterally. [facility]: 17:46 GI: Abdomen is non-distended, Bowel sounds present X 4 quads. [facility] 17:56 17:46 : No signs and/or symptoms were reported regarding the genitourinary system. [facility]: 17:46 Derm: Skin is intact, is healthy with good turgor, Skin is dry, Skin is ah pink, warm \T\ dry.
--- NOTE | 2019-05-09 20:08 | EDPHYS ---
Physician Documentation [facility] Name: Dayana Sumner Age: 78 yrs Sex: Female : 1940 Arrival Date: 05/09/2019 Time: 16:19 Bed 15 Private MD: Charisse Rubin ED Physician Jorge August HPI: 05/09 17:20 This 78 yrs old Female presents to ER via Wheelchair with complaints of cp Confusion. 17:20 The patient presents with confusion. cp 17:20 Onset: The symptoms/episode began/occurred 3 day(s) ago. Possible causes: CVA or TIA. cp Associated signs and symptoms: Pertinent positives: general weakness, Pertinent negatives: abdominal pain, chest pain, combativeness, headache. Current symptoms: In the emergency department the patient's symptoms are unchanged from the initial presentation, despite home interventions. Patient's baseline: Neuro: alert and fully oriented, Motor: no deficits, Ambulation: walks without assistance, Speech: normal. Patient's reports patient was last normal. Patient brought to ED with concern for confusion over past 3 days. Son concerned that patient "not as sharp mentally" over past few days and forgetting his age and recent birthday. Historical: - Allergies: 16:37 Codeine; ca1 - PMHx: 16:37 Diabetes - NIDDM; Hypertension; neuropathy; ca1 - Immunization history:: Adult Immunizations up to date, Pneumococcal vaccine is up to date, Flu vaccine is up to date. - Coronavirus screen:: The patient has NOT traveled to [place] in the past 14 days. The patient has NOT had contact with known/suspected case of Coronavirus?. - Social history:: Smoking status: Patient denies any tobacco usage or history of. - Ebola Screening: : Patient negative for fever greater than or equal to 101.5 degrees Fahrenheit, and additional compatible Ebola Virus Disease symptoms Patient denies exposure to infectious person Patient denies travel to an Ebola-affected area in the 21 days before illness onset No symptoms or risks identified at this time. ROS: 17:25 Constitutional: Negative for body aches, chills, fever, poor PO intake. cp 17:25 Eyes: Negative for injury, pain, redness, and discharge. cp 17:25 ENT: Negative for drainage from ear(s), ear pain, sore throat, difficulty swallowing, cp difficulty handling secretions. 17:25 Neck: Negative for pain with movement, pain at rest, stiffness. 17:25 Cardiovascular: Negative for chest pain, palpitations. 17:25 Respiratory: Negative for cough, shortness of breath, wheezing. 17:25 Abdomen/GI: Negative for abdominal pain, vomiting, diarrhea, constipation, anorexia, black/tarry stool, rectal bleeding. 17:25 Back: Negative for pain at rest, pain with movement. 17:25 : Negative for urinary symptoms. 17:25 Skin: Negative for rash. 17:25 Neuro: Positive for altered mental status, weakness, Negative for headache, syncope. 17:25 All other systems are negative. Exam: 17:30 Head/Face: Normocephalic, atraumatic. cp 17:30 Constitutional: The patient appears in no acute distress, alert, awake, non-diaphoretic, non-toxic, well developed, well nourished. 17:30 Eyes: Periorbital structures: appear normal, Pupils: equal, round, and reactive to cp light and accomodation, Extraocular movements: intact throughout, Conjunctiva: normal, no exudate, no injection, Sclera: no appreciated abnormality, Lids and lashes: appear normal, bilaterally. 17:30 ENT: External ear(s): are unremarkable, Ear canal(s): are normal, clear, TM's: bulging, is not appreciated, bilaterally, dullness, bilaterally, erythema, is not appreciated, bilaterally, Nose: is normal, Mouth: Lips: moist, Oral mucosa: pink and intact, moist, Posterior pharynx: is normal, airway is patent, no erythema, no exudate. 17:30 Neck: ROM/movement: is normal, is supple, without pain, no range of motions cp limitations, no meningismus, no nuchal rigidity. 17:30 Chest/axilla: Inspection: normal, Palpation: is normal, no crepitus, no tenderness. 17:30 Cardiovascular: Rate: normal, Rhythm: regular, Edema: mild bilateral lower leg , JVD: is not appreciated. 17:30 Respiratory: the patient does not display signs of respiratory distress, Respirations: normal, no use of accessory muscles, no retractions, no splinting, no tachypnea, labored breathing, is not present, Breath sounds: decreased breath sounds, are not appreciated, rhonchi, are not appreciated, wheezing: is not appreciated. 17:30 Abdomen/GI: Inspection: abdomen appears normal, Bowel sounds: active, all quadrants, Palpation: abdomen is soft and non-tender, in all quadrants, voluntary guarding, is not appreciated, involuntary guarding, is not appreciated. 17:30 Back: pain, is absent, ROM is normal. 17:30 Musculoskeletal/extremity: Exam is negative for decreased range of motion, injury. 17:30 Skin: cellulitis, is not appreciated, no rash present. 17:30 Neuro: Orientation: to person, place, situation, Mentation: lucid, able to follow commands, Cerebellar function: Romberg testing is negative, normal finger to nose testing, Motor: moves all fours, general weakness w/o focal deficits, Sensation: is normal. 22:15 ECG was reviewed by the Attending Physician. cp Vital Signs: 16:37 BP 152 / 81; Pulse 73; Resp 16 S; Temp 98.2(O); Pulse Ox 94% on R/A; Weight 57.15 kg ca1 (R); Height 4 ft. 9 in. (144.78 cm) (R); 17:30 BP 172 / 87; Pulse 72; Resp 14; Pulse Ox 99% on R/A; hb 18:15 BP 163 / 86; Pulse 71; Resp 19; Pulse Ox 96% on R/A; hb 19:00 BP 160 / 88; Pulse 76; Resp 16; Pulse Ox 99% on R/A; rv 20:00 BP 166 / 86; Pulse 81; Resp 16; Pulse Ox 98% on R/A; rv 21:07 BP 161 / 90; Pulse 84; Resp 15; Pulse Ox 98% on R/A; rv 16:37 Body Mass Index 27.27 (57.15 kg, 144.78 cm) ca1 NIH Stroke Scale Scores: 17:30 NIHSS Score: 0 cp MDM: 16:54 Patient medically screened. cp 17:45 Differential Diagnosis: CVA, electrolyte abnormality, intracranial bleed, pneumonia, cp sepsis, TIA, UTI, volume depletion. 19:55 Physician consultation: Mario Schumacher MD was called at 19:50, was contacted at 19:50, cp regarding consult, patient's condition, and will see patient in inpatient room. 20:00 Data reviewed: vital signs, nurses notes, lab test result(s), EKG, radiologic studies, cp CT scan, plain films, I have discussed the patient's presentation/case with the attending Emergency Department Physician;. 20:00 Test interpretation: by ED physician or midlevel provider: ECG. 20:05 Physician consultation: Prince Robertson MD was called at 20:05, was contacted at 20:06, regarding admission, to the telemetry unit. 05/09 17:02 Order name: Basic Metabolic Panel 05/09 17:02 Order name: CBC with Diff 05/09 17:02 Order name: LFT's 05/09 17:02 Order name: Magnesium 05/09 17:02 Order name: NT PRO-BNP 05/09 17:02 Order name: PT-INR 05/09 17:02 Order name: Troponin (emerg Dept Use Only) 05/09 17:18 Order name: Urine Microscopic Only 05/09 17:29 Order name: CBC with Automated Diff; Complete Time: 19:29 EDMS 05/09 18:11 Interpretation: Normal except: HGB 10.6; HCT 33.0; MCV 72.3; MCH 23.2; RDW 21.7; cp EOSINOPHIL % 9.4; EOSA 0.8. 05/09 17:36 Order name: Protime (+INR); Complete Time: 17:49 EDMS 05/09 17:56 Order name: Basic Metabolic Panel; Complete Time: 18:11 EDMS 05/09 18:11 Interpretation: Normal except: K 2.8; BUN 6; GFR 67. cp 05/09 17:56 Order name: Liver (Hepatic) Function; Complete Time: 18:11 EDMS 02 18:11 Interpretation: Normal except: BILIT 1.2; BILID 0.5; ALB 3.0; GLOB 3.7; A/G 0.8. cp 05/09 17:56 Order name: Troponin (Emerg Dept Use Only); Complete Time: 18:11 EDMS 05/09 17:57 Order name: NT PRO-BNP; Complete Time: 18:11 EDMS 05/09 19:29 Interpretation: Abnormal: NT PRO-BNP 4873. 05/09 17:02 Order name: XRAY Chest (1 view) 05/09 17:02 Order name: EKG; Complete Time: 17:04 cp 05/09 17:02 Order name: Cardiac monitoring; Complete Time: 19:48 cp 05/09 17:18 Order name: CT Head Brain wo Cont cp 05/09 17:57 Order name: Magnesium; Complete Time: 18:11 EDMS 05/09 19:30 Interpretation: Abnormal: MG 1.5. cp 05/09 18:57 Order name: CBC Smear Scan; Complete Time: 19:29 EDMS 05/09 19:48 Order name: Urine Microscopic Only rv 05/09 19:50 Order name: Urine Dipstick--Ancillary (enter results) ar5 05/09 19:51 Order name: RAD; Complete Time: 19:53 EDMS 05/09 19:52 Order name: CT; Complete Time: 19:53 EDMS 05/09 20:03 Order name: Diet Ada 1800 Martell; Complete Time: 20:04 cp 05/09 20:21 Order name: Urine Microscopic Only EDIL 05/09 20:21 Order name: Urine Dipstick-Ancillary EDIL 05/09 17:02 Order name: EKG - Nurse/Tech; Complete Time: 19:48 cp 05/09 17:02 Order name: IV Saline Lock; Complete Time: 19:48 cp 05/09 17:02 Order name: Labs collected and sent; Complete Time: 19:48 cp 05/09 17:02 Order name: O2 Per Protocol; Complete Time: 19:48 cp 05/09 17:02 Order name: O2 Sat Monitoring; Complete Time: 19:48 cp 05/09 17:18 Order name: Urine Dipstick-Ancillary (obtain specimen); Complete Time: 19:48 cp 05/09 18:54 Order name: Cath; Complete Time: 19:48 cp EC:15 Rate is 81 beats/min. Rhythm is regular, Paced. QRS interval is prolonged at 146 msec. cp QT interval is normal. Interpreted by me. Reviewed by me. Administered Medications: 19:23 Drug: Magnesium Sulfate 2 grams Route: IVPB; Infused Over: 2 hrs; Site: right forearm; rv 21:11 Follow up: IV Status: Completed infusion rv 20:10 Drug: Potassium Effervescent Tablet 50 mEq Route: PO; rv 21:10 Follow up: Response: No adverse reaction rv 20:45 Drug: Aspirin Chewable Tablet 81 mg Route: PO; rv 21:10 Follow up: Response: No adverse reaction rv Disposition: 05/10 07:04 Co-signature as Attending Physician, Jorge August MD I agree with the assessment and kdr plan of care. Disposition: 05/09/19 20:07 Hospitalization ordered by Prince Robertson for Observation. Preliminary diagnosis are Altered mental status, unspecified, Hypokalemia, Hypomagnesemia. - Bed requested for Telemetry/MedSurg (observation). - Status is Observation. rv - Condition is Stable. - Problem is new. - Symptoms are unchanged. NIH Stroke Scale - NIH Stroke Score Date: 05/09/2019 Time: 17:30 Total Score = 0 1a. Level of Consciousness (LOC) - 0(Alert) 1b. Level of Consciousness (LOC) (Year \\T\\ Age) - 0(Both) 1c. LOC Commands (Open \\T\\ Closes Eyes/Driver Operator) - 0(Both) 2. Best Gaze (Lateral Gaze Paresis) - 0(Normal) 3. Visual Field Loss - 0(No visual loss) 4. Facial Palsy - 0(Normal) 5a. Left Arm: Motor (10-second hold) - 0(No drift) 5b. Right Arm: Motor (10-second hold) - 0(No drift) 6a. Left Leg: Motor (5-second hold - always test supine) - 0(No drift) 6b. Right Leg: Motor (5-second hold - always test supine) - 0(No drift) 7. Limb Ataxia (finger/nose \\T\\ heel/forde - test with eyes open) - 0(Absent) 8. Sensory Loss (pinprick arms/legs/face) - 0(Normal) 9. Best Language: Aphasia (description/naming/reading) - 0(No aphasia) 10. Dysarthria (speech clarity - read or repeat words) - 0(Normal) 11. Extinction and Inattention (visual/tactile/auditory/spatial/personal) - 0(No abnormality) Initials: cp Signatures: Dispatcher [employer] EDMS Alisson Mason RN RN mw Rittger, Kevin, MD MD kdr Nieto, Roman, MD MD rn Page, Corey, PA PA cp Jack Bacon RN RN rv Acob, NIDA Johansen RN ca1 Corrections: (The following items were deleted from the chart) 05/09 18:11 17:49 Normal except: HGB 10.6; HCT 33.0; MCV 72.3; MCH 23.2; RDW 21.7; cp EOSINOPHIL % 9.4. cp 20:22 20:07 Hospitalization Ordered by Prince Robertson MD for Observation. Preliminary mw diagnosis is Altered mental status, unspecified; Hypokalemia; Hypomagnesemia. Bed requested for Telemetry/MedSurg (observation). Status is Observation. Condition is Stable. Problem is new. Symptoms are unchanged. cp 22:07 20:22 05/09/2019 20:07 Hospitalization Ordered by Prince Robertson MD for rv Observation. Preliminary diagnosis is Altered mental status, unspecified; Hypokalemia; Hypomagnesemia. Bed requested for Telemetry/MedSurg (observation). Status is Observation. Condition is Stable. Problem is new. Symptoms are unchanged. mw
[2019-05-09] MEDS ORDERED: ACETAMINOPHEN 500 MG TAB PO PRN (20:17)
[2019-05-09] MEDS ORDERED: ONDANSETRON 4 MG/2 ML VIAL IV PRN (20:17)
[2019-05-09] MEDS ORDERED: MORPHINE 2 MG/ML SYR IV PRN (20:17)
[2019-05-09 20:19] LABS: Urine Bacteria <20 /HPF (<20); Urine RBC <5 /HPF (NONE SEEN)
[2019-05-09 20:20] LABS: Urine Blood TRACE (NEG); Urine Glucose NEGATIVE (NEG); Urine Protein 1+ (NEG); Urine Specific Gravity 1.025 (1.005-1.030); Urine pH 5.5 (5.0-7.0)
[2019-05-09 20:20] LABS: Urine Amorphous Sediment 1+ /HPF (NONE SEEN); Urine Mucus 2+ /HPF (NONE SEEN)
[2019-05-09] MEDS ORDERED: ASPIRIN 81 MG CHEWABLE TABLET ONE (20:46)
[2019-05-09] MEDS ORDERED: NA CHLORIDE 0.9% 1,000 ML IV SCH (21:00)
[2019-05-09 23:20] VITALS: BMI 26.2
[2019-05-10 06:13] LABS: Absolute Lymphocytes (CBC) 1.6 K/uL (0.7-4.9); Hematocrit 29.3 % (36.0-45.0); Lymphocytes % 18.9 % (15.3-44.8); MPV 7.9 fL (7.6-11.3); RBC Red Blood Cell Count 4.08 M/uL (3.86-4.86)
[2019-05-10 06:17] LABS: Protime INR 1.3
[2019-05-10 06:19] LABS: Albumin 2.8 g/dL (3.4-5.0); Potassium 3.1 mmol/L (3.5-5.1)
[2019-05-10 06:50] LABS: Folic Acid, (Folate) 5.2 ng/mL (3.1-17.5); Magnesium 1.6 mg/dL (1.8-2.4); Phosphorus 2.9 mg/dL (2.5-4.9)
[2019-05-10 06:53] LABS: Thyroid Stimulating Hormone 5.02 uIU/mL (0.360-3.740)
[2019-05-10] MEDS ORDERED: POTASSIUM CL SA 10 MEQ TAB PO ONE ×2 (09:17→11:30)
[2019-05-10] MEDS ORDERED: Magnesium Sulfate 2gm IVPB 2 G/50 ML BAG IV ONE (09:18)
--- NOTE | 2019-05-10 10:26 | P.HP ---
Certification for Inpatient Patient admitted to: Observation With expected LOS: <2 Midnights Patient will require the following post-hospital care: None Practitioner: I am a practitioner with admitting privileges, knowledge of patient current condition, hospital course, and medical plan of care. Services: Services provided to patient in accordance with Admission requirements found in Title 42 Section 412.3 of the Code of Federal Regulations Patient History Date of Service: 05/09/19 Reason for admission: Generalized weakness; some confusion History of Present Illness: Patient is a 78-year-old female who came to the hospital because her son who is an ER physician felt like she may have had a stroke. She was confused and she was having pauses whenever she would speak. She was taking a long time to answer her questions. She has some generalized weakness as well. In the emergency room she was found to have low magnesium levels and low potassium levels. She may have some weakness because of these electrolyte abnormalities. Will also rule out any infectious causes and reassess her medications. We will make sure none of these are causing her any side effects. She will get an MRI of the brain for further evaluation as well as a neurologic consultation. Allergies codeine Adverse Reaction (Severe, Verified 01/22/19 21:26) Nausea/Vomiting Home medications list reviewed: Yes Home Medications: Atorvastatin Calcium [Lipitor*] 10 mg PO DAILY 01/22/19 Furosemide 20 mg PO DAILY 01/22/19 Gabapentin 300 mg PO BID 01/22/19 Levothyroxine [Synthroid*] 0.05 mg PO 0600 01/22/19 Promethazine HCl 25 mg PO Q8HP PRN 01/22/19 Valsartan 80 mg PO DAILY 01/22/19 carvediloL [Carvedilol] 25 mg PO BID 01/22/19 Ropinirole HCl [Requip*] 0.25 mg PO BEDTIME PRN #15 tab 01/24/19 Acetylcarnitin/Alpha Lipoic AC [Acetyl q-Ptnrozusl-Vuhglx Acid] 1 cap PO BEDTIME 05/10/19 Melatonin 10 mg PO BEDTIME 05/10/19 Sour Sal Extract [Tart Sal Extract] 1,200 mg PO DAILY 05/10/19 Ubidecarenone [Co Q-10] 1 cap PO DAILY 05/10/19 hydrOXYzine HCL [Atarax] 50 mg PO Q8H PRN 05/10/19 - Past Medical/Surgical History Has patient received pneumonia vaccine in the past: Yes Diabetic: No -: DM type 2 [id number] (not on medicine since Mar 2019) -: Hypertension -: Hypothyroidism -: CHF -: Pacemaker/defibrillator -: Hyperlipidemia -: Degenerative disk and joint disease, spine -: spinal stenosis -: Pacemaker defibrillator -: bilateral knee replacements -: r shoulder replaced Psychosocial/ Personal History: Patient is - Family History Father Medical History: Heart disease, Hypertension, GI disease Mother Medical History: Hypertension, Cancer Notes: uterine ca. thyroid ca Brother Medical History: Heart disease, Hypertension Notes: 58 yo mi - Social History Smoking Status: Never smoker Alcohol use: No CD- Drugs: No Caffeine use: Yes Place of Residence: Home Review of Systems 10-point ROS is otherwise unremarkable Physical Examination - Vital Signs Temperature: 98 F Blood Pressure: 144/68 Pulse: 78 Respirations: 16 Pulse Ox (%): 91 - Physical Exam General: Alert, In no apparent distress, Oriented x3 HEENT: Atraumatic, PERRLA, Mucous membr. moist/pink, EOMI, Sclerae nonicteric Neck: Supple, 2+ carotid pulse no bruit, No LAD, Without JVD or thyroid abnormality Respiratory: Clear to auscultation bilaterally, Normal air movement Cardiovascular: Regular rate/rhythm, Normal S1 S2, No murmurs Gastrointestinal: Normal bowel sounds, Soft and benign, Non-distended, No tenderness Musculoskeletal: No clubbing, No swelling, No tenderness Neurological: Normal tone, Sensation intact, Normal affect, Abnormal gait, Abnormal speech, Abnormal strength Lymphatics: No axilla or inguinal lymphadenopathy - Studies Laboratory Data (last 24 hrs) 05/09/19 17:12: PT 15.5 H, INR 1.33 05/09/19 17:12: WBC 8.6, Hgb 10.6 L, Hct 33.0 L, Plt Count 395 05/09/19 17:12: Sodium 137, Potassium 2.8 L*, BUN 6 L, Creatinine 0.83, Glucose 85, Magnesium 1.5 L, Total Bilirubin 1.2 H, AST 30, ALT 15, Alkaline Phosphatase 55 Assessment & Plan - Problems (Diagnosis) (1) Generalized weakness Current Visit: Yes Status: Acute (2) Hypokalemia Current Visit: Yes Status: Acute (3) Hypomagnesemia Current Visit: Yes Status: Acute (4) Acute exacerbation of CHF (congestive heart failure) Current Visit: No Status: Acute Qualifiers: Heart failure type: systolic Qualified Code(s): I50.23 - Acute on chronic systolic (congestive) heart failure (5) HTN (hypertension) Current Visit: No Status: Chronic Qualifiers: Hypertension type: essential hypertension Qualified Code(s): I10 - Essential (primary) hypertension (6) Hyperlipidemia Current Visit: No Status: Chronic Qualifiers: Hyperlipidemia type: mixed hyperlipidemia Qualified Code(s): E78.2 - Mixed hyperlipidemia - Plan Plan: 1. Neuro checks q.4 hours 2. neurology consultation 3. supplement electrolytes and reassess muscular status 4. Strict blood pressure and blood sugar control 5. check thyroid studies and cortisol studies 6. GI and DVT prophylaxis Discharge Plan: Home Plan to discharge in: 48 Hours - Advance Directives Does patient have a Living Will: No Does patient have a Durable POA for Healthcare: No - Code Status/Comfort Care Code Status Assessed: Yes Critical Care: No Time Spent Managing PTS Care (In Minutes): 40
[2019-05-10 10:54] VITALS: O2SAT 91
--- NOTE | 2019-05-10 13:18 | P.DS ---
Admission Date: 05/09/19 Discharge Date: 05/10/19 Disposition: DC HOME/HOME HEALTH CARE Discharge Condition: FAIR Reason for Admission: Generalized weakness; some confusion Consultations: Neurologist - Problems (1) Generalized weakness Current Visit: Yes Status: Acute (2) Hypokalemia Current Visit: Yes Status: Acute (3) Hypomagnesemia Current Visit: Yes Status: Acute (4) Acute exacerbation of CHF (congestive heart failure) Current Visit: No Status: Acute Qualifiers: Heart failure type: systolic Qualified Code(s): I50.23 - Acute on chronic systolic (congestive) heart failure (5) UTI (urinary tract infection) Current Visit: No Status: Acute Qualifiers: Urinary tract infection type: acute cystitis Hematuria presence: without hematuria Qualified Code(s): N30.00 - Acute cystitis without hematuria (6) HTN (hypertension) Current Visit: No Status: Chronic Qualifiers: Hypertension type: essential hypertension Qualified Code(s): I10 - Essential (primary) hypertension (7) Hyperlipidemia Current Visit: No Status: Chronic Qualifiers: Hyperlipidemia type: mixed hyperlipidemia Qualified Code(s): E78.2 - Mixed hyperlipidemia Brief History of Present Illness: Patient is a 78-year-old female who came to the hospital because her son who is an ER physician felt like she may have had a stroke. She was confused and she was having pauses whenever she would speak. She was taking a long time to answer her questions. She has some generalized weakness as well. In the emergency room she was found to have low magnesium levels and low potassium levels. She may have some weakness because of these electrolyte abnormalities. Will also rule out any infectious causes and reassess her medications. We will make sure none of these are causing her any side effects. She will get an MRI of the brain for further evaluation as well as a neurologic consultation. Hospital Course: Patient presented for weakness. She was noticed to be confused. CT head unremarkable. She has pacemaker which is not compatible with MRI. Her potassium and magnesium were low. She was treated to IV fluids and electrolytes were replaced. She was getting better. Neurologist saw the patient. Her potassium and magnesium returned to normal range. She can be discharged to home with home health. Vital Signs/Physical Exam: Temp Pulse Resp BP Pulse Ox 98.2 F 85 16 126/64 91 05/10/19 12:00 05/10/19 12:00 05/10/19 12:00 05/10/19 12:00 05/10/19 12:00 General: Alert, In no apparent distress, Oriented x3, Cooperative HEENT: Atraumatic, Normocephalic, PERRLA, Mucous membr. moist/pink, Other Neck: Supple, 2+ carotid pulse no bruit, JVD not distended Respiratory: Clear to auscultation bilaterally, Normal air movement Cardiovascular: No edema, Normal pulses, Regular rate/rhythm, Normal S1 S2, Abnormal S3, No gallops, No rubs Gastrointestinal: Normal bowel sounds, Hypoactive, Soft and benign, Non- distended Musculoskeletal: No clubbing, No swelling Integumentary: No rashes, No breakdown Neurological: Normal gait, Normal speech, Normal strength at 5/5 x4 extr, Normal tone, Normal reflexes 2+, Normal affect Laboratory Data at Discharge: WBC 8.2 K/uL (4.3-10.9) 05/10/19 05:45 Hgb 9.5 g/dL (12.0-15.0) L 05/10/19 05:45 Hct 29.3 % (36.0-45.0) L 05/10/19 05:45 Plt Count 388 K/uL (152-406) 05/10/19 05:45 PT 15.2 SECONDS (9.5-12.5) H 05/10/19 05:45 INR 1.30 05/10/19 05:45 APTT 32.2 SECONDS (24.3-36.9) 05/10/19 05:45 Sodium 139 mmol/L (136-145) 05/10/19 05:45 Potassium 3.1 mmol/L (3.5-5.1) L 05/10/19 05:45 BUN 5 mg/dL (7-18) L 05/10/19 05:45 Creatinine 0.79 mg/dL (0.55-1.3) 05/10/19 05:45 Glucose 72 mg/dL (74-106) L 05/10/19 05:45 Phosphorus 2.9 mg/dL (2.5-4.9) 05/10/19 05:45 Magnesium 1.6 mg/dL (1.8-2.4) L 05/10/19 05:45 Total Bilirubin 1.0 mg/dL (0.2-1.0) 05/10/19 05:45 AST 29 U/L (15-37) 05/10/19 05:45 ALT 15 U/L (12-78) 05/10/19 05:45 Alkaline Phosphatase 51 U/L (45-117) 05/10/19 05:45 Triglycerides 140 mg/dL (<150) 05/10/19 05:45 Cholesterol 93 mg/dL (<200) 05/10/19 05:45 HDL Cholesterol 28 mg/dL (40-60) L 05/10/19 05:45 Cholesterol/HDL Ratio 3.32 05/10/19 05:45 Home Medications: Atorvastatin Calcium [Lipitor*] 10 mg PO DAILY 01/22/19 Furosemide 20 mg PO DAILY 01/22/19 Gabapentin 300 mg PO BID 01/22/19 Levothyroxine [Synthroid*] 0.05 mg PO 0600 01/22/19 Promethazine HCl 25 mg PO Q8HP PRN 01/22/19 Valsartan 80 mg PO DAILY 01/22/19 carvediloL [Carvedilol] 25 mg PO BID 01/22/19 Ropinirole HCl [Requip*] 0.25 mg PO BEDTIME PRN #15 tab 01/24/19 Acetylcarnitin/Alpha Lipoic AC [Acetyl w-Ddelyvlli-Iazfpi Acid] 1 cap PO BEDTIME 05/10/19 Melatonin 10 mg PO BEDTIME 05/10/19 Sour Sal Extract [Tart Sal Extract] 1,200 mg PO DAILY 05/10/19 Ubidecarenone [Co Q-10] 1 cap PO DAILY 05/10/19 hydrOXYzine HCL [Atarax] 50 mg PO Q8H PRN 05/10/19 Diet: AHA Activity: Ad fior Followup: Charisse Rubin MD [Primary Care Provider] - 1-2 Weeks (call to schedule an appointment)
--- NOTE | 2019-05-10 13:36 | EKG ---
Test Date: 2019-05-09 Test Time: 21:58:51 Back Roll Lathe Operator: RV MEASUREMENT RESULTS: Intervals: Rate: 81 FL: 144 QRSD: 146 QT: 480 QTc: 557 [place]: P: -12 FL: 144 QRS: -61 T: -11 INTERPRETIVE STATEMENTS: Atrial-sensed ventricular-paced rhythm Compared to ECG 01/22/2019 14:30:33 no significant change from previous ECG Electronically Signed On 05-10-19 13:35:10 DIAL SCREW ASSEMBLER by Rl Feliciano
[2019-05-10 14:27] LABS: Magnesium 2.3 mg/dL (1.8-2.4); Potassium 3.5 mmol/L (3.5-5.1)
[2019-05-10 16:35] VITALS: BP 125/88; TEMP 97.2
--- NOTE | 2019-05-10 19:59 | CON ---
Reason For Consultation: Consultation called because of possible stroke. History Of Present Illness: Ms. Sumner is a 78-year-old right-handed patient with dyslipid emia, hypertension, who comes to [facility] with transient word-finding difficulties. The e mergency room note also suggests generalized weakness. Further, the patient's son is an emergency ro om physician and he thought she may have had a stroke and suggested admission and evaluation. In the emergency room, no focal weakness was identified. Blood work revealed low magnesium and potassium l evels and she was ruled out for systemic infections with normal white blood cell count. Urinalysis s howed a trace of blood, 1+ ketones and 1+ proteins, but it was negative for esterase and nitrites. H er head CT scan showed no acute ischemic or hemorrhagic changes. She has a cardiac pacemaker with de fibrillator and could not get MRI at this facility. Her chest x-ray showed no acute processes, excep t there was chronic interstitial lung disease, which is noted good mask mild edema or infiltrate. Si nce her admission, the patient said she has been able to get her thoughts and words together here wit hout difficulty and is not disoriented to situation, place, person, and has command of her faculties. Past Medical History: Includes insulin-dependent diabetes mellitus, hypertension, hypothyroidism, co ngestive heart failure, dyslipidemia, degenerative disk disease in the spine with stenosis. Past Surgical History: Pacemaker defibrillator placement, bilateral knee replacement, right shoulder replacement. Family History: Positive for heart disease, hypertension, and gastrointestinal disease in father as well as hypertension, cancer and thyroid in mother. Brother has heart disease, hypertensi on, and at age 58. Allergies: CODEINE CAUSES NAUSEA AND VOMITING. Medications: At home; Lipitor 10 mg at bedtime, furosemide 20 mg daily, gabapentin 300 mg twice neptali y, Synthroid 0.05 mg daily, promethazine 25 mg every 8 hours as needed, valsartan 80 mg daily, carved ilol 25 mg twice daily, Requip 0.25 mg at bedtime, melatonin 10 mg at bedtime, shower prescott extract mg daily, melatonin 10 mg at night, coenzyme Q10 daily, Atarax 50 mg every 8 hours as need ed. Review of Systems: Aside from mentioned above, no recent fevers or chills, myalgias. There are mild arthralgias. No re al headache, weight change, or psychiatric complaints. No other positives on a 10-point systems revi ew. Physical Examination: Vital Signs: Blood pressure 126/64, pulse 78 to 85, respiratory rate 14 to 18, temperature 98.2, oxy gen saturation 91%. Weight 129 pounds, height 4 feet 11 inches, BMI 26. General: Ms. Sumner is resting in bed. At the bedside. She is in no acute distress. HEENT: She is normocephalic, atraumatic. Sclerae are anicteric. Oropharynx is moist and pink. Neck: Supple. Chest: Clear. Heart: Regular. Extremities: Show no significant edema, cyanosis, or clubbing. Neurological: She is alert and oriented to person, place, time, and situation. She follows all comm ands appropriately. She is not able to keep up floor of the hospital she is on, but she i s otherwise fully intact. Cranial nerve repair intact in terms of visual moy, facial symmetry and excursions on movement. Tongue and palate are midline. Motor examination: She has had no focal de ficits in upper and lower extremities with full strength. Sensory exam is stocking-glove loss to lig ht touch and temperature. Reflexes depressed in the upper and lower extremities. Coordination intac t in the upper and lower extremities. She has no gait abnormalities. Laboratory Studies: Complete blood count with differential revealed a mild anemia 9.7 hemoglobin, pl atelets 388, white blood cell count normal at 8.2, INR 1.3. On admission, her potassium was low at 2 .8, magnesium 1.9. She has elevated total and direct bilirubin, which became normal on rehydration. Vitamin B12 level elevated at 1208. Serum folate normal at 5.2. TSH elevated to 5.02, free T4 norm al at 1.35. Total cholesterol 93, LDL cholesterol 37, HDL cholesterol 27, cholesterol HDL ratio 3.32 . Her iron level is low at 21. Glucose is normal. Head CT scan read as mild atrophy and chronic is chemic changes, but no acute ischemic or hemorrhagic findings. Assessment: Ms. Sumner is a 78-year-old patient with multiple stroke risk factors, who had electroly te abnormalities on admission and was admitted with some word-finding difficulties, mild diffuse weak ness and perhaps confusion. At the time of my evaluation, she was not confused, fully appropriate, f ollowed all commands appropriately and had no deficits neurologically in the face, arm, or leg. Her magnesium and potassium were low and replaced. She does not have a urinary tract or systemic infecti on. Plan: She may return to home with family. A followup blood work for magnesium and potassium levels and hydrate 8 glasses of water 8 ounces each. Also may require supplementation of magnesium and pota ssium. She should be on aspirin 81 mg daily and moderate dose statin at night for additional stroke risk reduction. Please follow up with Dr. Schumacher's clinic 1 month after discharge. CAROLINE Voice ID: [id number] Report ID: [id number]
[2019-05-10] MEDS ORDERED: GABAPENTIN 300 MG CAP PO SCH (21:00)
== END 2019-05-10 16:55 | disposition home health service (06) ==
LOC: ER 16:13 → ERHOLD 20:27 → 4TH 22:01
PROVIDERS: ADMIT Hospitalist; ATTEND Hospitalist
DX: R53.1 Weakness (principal); E11.9 Type 2 diabetes mellitus without complications; E03.9 Hypothyroidism, unspecified; E78.5 Hyperlipidemia, unspecified; E87.6 Hypokalemia; E83.42 Hypomagnesemia; I11.0 Hypertensive heart disease with heart failure; I50.22 Chronic systolic (congestive) heart failure; Z96.653 Presence of artificial knee joint, bilateral; Z96.611 Presence of right artificial shoulder joint; Z95.810 Presence of automatic (implantable) cardiac defibrillator
CPT/HCPCS: 96365; 93005; 85025 ×2; 80048; 36415; 83735 ×3; 84100; 84132; 85610 ×2; 80061; 82947 ×2; 80076; 85730; 84443; 84484; 84439; 82746; 82607; 83540; 80053; 83880; 70450; 71045; 99285; 96366; J3475 ×2; J7030 ×2; G0378 ×2; 81003; 81015

== ENCOUNTER 2020-01-25 21:58 | Inpatient (IN) | payer OTHER, BC ==
--- OUTSIDE RECORDS SUMMARY | 2020-01-25 22:02 | XMS REPORT | Continuity of Care Document ---
:1940 Author Organization [facility] Information [place] Care Team Providers Name Role Phone [facility] Information [place] Unavailable Un available Problems Problem Status Onset Classification Date Comments Sourc e Date Reported RADICULOPATHY Active Naveedori harley 019 Gopal Intervertebral disc 10/04/2018 Ortho disorders with 018 and S pine radiculopathy, lumbar region LUMBAR RADICULOPATHY Active [facility] 017 Force Cardiomyopathy Active Problem 10/04/2018 [facility] O rtho (disorder) and Spine Hypercholesterolemia Active Problem 10/04/2018 [facility] Ortho (disorder) and Spine Hypertensive disorder, Active Problem 10/04/2018 Ortho systemic arterial an d Spine (disorder) Hypothyroidism Active Problem 10/04/2018 MH O rtho (disorder) and Spine Restless legs Active Problem 10/04/2018 MH Or tho (disorder) and Spine Rheumatoid arthritis Active Problem 10/04/2018 Ortho (disorder) and Spine Essential (primary) 10/04/2018 Ortho hypertension and Spi ne Old myocardial 10/04/2018 MH O rtho infarction and Spine Cardiomyopathy, 10/04/2018 Ortho unspecified and Spin e Hypothyroidism, 10/04/2018 Ortho unspecified and Spin e 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 (Same Spine as: Tylenol Extra Strength) Lactated Ringers 1,000 mL, Rate: No Longer 08/02 IV 1,000 mL 125 ml/hr, Active 2019 Ortho Infuse over: 8 and hr, Route: IV, Spine Dosing Weight 63.182 kg, Total Volume: 1,000, Start date: 08/02/18 10:23:00 CDT, Duration: 30 day, Stop date: 09/01/18 10:22:00 CDT, 1.62, m2 Acetaminophen 10 Notes: Infuse Inactive MG/ML Injectable over 15 minutes 2019 Ortho Solution Do not exceed and 4gm/day of Spine acetaminophen MEDICATION WASTE Product Size: 1000 mg Product Wasted: ___ mg Hydromorphone Notes: Same as No Longer H Dilaudid Active 2019 Ortho and Spine Acetaminophen Notes: Do not No Longer 325 MG / exceed 4gm/day Active 2019 Ortho Hydrocodone of and Bitartrate 10 MG acetaminophen. Spine Oral Tablet (Same as: [place] 325/10) Ondansetron Notes: (Same No Longer as: Zofran) Active 2019 Ortho MEDICATION and WASTE Spine Product Size: 4 mg Product Wasted: ___ mg 72 HR 1 patch, Route: Inactive Scopolamine TOP, Drug Form: 2019 Orth o 0.0139 MG/HR ERFILM, Dosing and Transdermal Weight 63.182, Spine Patch kg, PRE OP, Start date: 08/02/18 9:21:00 CDT, Duration: 30 day, Stop date: 09/01/18 9:20:00 CDT Zofran Notes: (Same Inactive as: Zofran) 2019 Ortho MEDICATION and WASTE Spine Product Size: 4 mg Product Wasted: ___ mg Saline Flush Notes: (Same No Longer 0.9% as: BD Active 2019 Ortho Posiflush) and Spine Lactated Ringers 1,000 mL, Rate: No Longer 08/02 IV 1,000 mL 125 ml/hr, Active 2019 Ortho Infuse over: 8 and hr, Route: IV, Spine Dosing Weight 63.182 kg, Total Volume: 1,000, Start date: 08/02/18 9:10:00 CDT, Duration: 30 day, Stop date: 09/01/18 9:09:00 CDT, 1.62, m2 Hydromorphone Notes: Same as No Longer H Dilaudid Active 2019 Ortho and Spine Ondansetron Notes: (Same No Longer as: Zofran) Active 2019 Ortho MEDICATION and WASTE Spine Product Size: 4 mg Product Wasted: ___ mg Lactated Ringers 1,000 mL, Rate: No Longer 07/12 IV 1,000 mL 125 ml/hr, Active 2019 Ortho Infuse over: 8 and hr, Route: IV, Spine Dosing Weight 63.182 kg, Total Volume: 1,000, Start date: 07/12/18 9:18:00 CDT, Duration: 30 day, Stop date: 08/11/18 9:17:00 CDT, 1.62, m2 Acetaminophen 10 Notes: Infuse No Longer MG/ML Injectable over 15 minutes Active 2019 Ortho Solution Do not exceed and 4gm/day of Spine acetaminophen MEDICATION WASTE Product Size: 1000 mg Product Wasted: ___ mg Acetaminophen Notes: Do not No Longer 325 MG / exceed 4gm/day Active 2019 Ortho Hydrocodone of and Bitartrate 10 MG acetaminophen. Spine Oral Tablet (Same as: [place] 325/10) Pepcid 20 mg, Route: Inactive IVPB, ONCE, 2018 Ortho Dosing Weight and 63.182, kg, Spine Start date: 07/12/18 8:27:00 CDT, Stop date: 07/12/18 8:27:00 CDT Zofran 4 mg, Route: Inactive IV, ONCE, 2018 Ortho Dosing Weight and 63.182, kg, Spine Start date: 07/12/18 8:26:00 CDT, Stop date: 07/12/18 8:26:00 CDT Lactated Ringers 1,000 mL, Rate: No Longer 07/12 IV 1,000 mL 30 ml/hr, Active 2019 Ortho Infuse over: and 33.3 hr, Route: Spine IV, Dosing Weight 62.727 kg, Total Volume: 1,000, Start date: 07/12/18 7:52:00 CDT, Duration: 30 day, Stop date: 08/11/18 7:51:00 CDT, 1.62, m2 Saline Flush Notes: Same as: No Longer H 0.9% BD Posiflush Active 2018 Ortho Sterile and Spine Ondansetron Notes: (Same No Longer as: Zofrpeterson ODT) Active 2018 Ortho and Spine Lactated Ringers 1,000 mL, Rate: No Longer 03/16 IV 1,000 mL 125 ml/hr, Active 2017 Ortho Infuse over: 8 and hr, Route: IV, Spine Dosing Weight 62.727 kg, Total Volume: 1,000, Start date: 03/16/18 10:20:00 STEAM TRAP MAN, Duration: 30 day, Stop date: 04/15/18 10:19:00 STEAM TRAP MAN, 1.62, m2 Acetaminophen 10 Notes: Infuse No Longer MG/ML Injectable over 15 minutes Active 2017 Ortho Solution Do not exceed and 4gm/day of Spine acetaminophen MEDICATION WASTE Product Size: 1000 mg Product Wasted: ___ mg Acetaminophen Notes: Do not No Longer 325 MG / exceed 4gm/day Active 2017 Ortho Hydrocodone of and Bitartrate 10 MG acetaminophen. Spine Oral Tablet (Same as: [place] 325/10) Hydromorphone Notes: Same as No Longer H Dilaudid Active 2017 Ortho and Spine Ondansetron Notes: (Same Inactive as: Zofran) 2018 Ortho MEDICATION and WASTE Spine Product Size: 4 mg Product Wasted: ___ mg Saline Flush Notes: Same as: No Longer H 0.9% BD Posiflush Active 2018 Ortho Sterile and Spine Lactated Ringers 1,000 mL, Rate: Inactive IV 1,000 mL 125 ml/hr, 2018 Ortho Infuse over: 8 and hr, Route: IV, Spine Dosing Weight 62.727 kg, Total Volume: 1,000, Start date: 03/16/18 8:03:00 STEAM TRAP MAN, Duration: 30 day, Stop date: 04/15/18 8:02:00 STEAM TRAP MAN, 1.62, m2 Furosemide 20 MG 20 mg = 1 tab, Active Oral Tablet PO, Daily, 0 2017 Ortho Refill(s) and Spine Lactated Ringers 1,000 mL, Rate: No Longer 03/09 IV 1,000 mL 40 ml/hr, Active 2016 Ortho Infuse over: 25 and hr, Route: IV, Spine Dosing Weight 64.091 kg, Total Volume: 1,000, Start date: 03/09/17 13:59:00 STEAM TRAP MAN, Duration: 30 day, Stop date: 04/08/17 13:58:00 STEAM TRAP MAN, 1.64, m2 Hydroxyzine 0 Refill(s) Active 2016 Ortho and Spine Melatonin 10 mg, Bedtime, Active 0 Refill(s) 2017 Ortho and Spine Tart prescott Tart prescott, Active Daily, 2017 Ortho Refill(s) 0 and Spine Vitamin B 1 tab, PO, Active Complex oral Daily, 0 2016 Ortho tablet Refill(s) and Spine Lamont-3 1000 mg 1,000 mg = 1 Active oral capsule cap, PO, Daily, 2017 Ort ho 0 Refill(s) and Spine Osteo Bi-Flex 1 tab, PO, Active oral tablet Daily, 0 2016 Ortho Refill(s) and Spine Vitamin D3 1000 1,000 IntlUnit Active H intl units oral = 1 cap, PO, 2016 Ort ho capsule Daily, 0 and Refill(s) Spine spironolactone 25 mg = 1 tab, Active 25 mg oral PO, BID, 0 2016 Ortho tablet Refill(s) and Spine valsartan 80 mg 80 mg = 1 tab, Active M H oral tablet PO, Daily, 0 2016 Ortho Refill(s) and Spine levothyroxine 50 50 microgram = Active mcg (0.05 mg) 1 tab, PO, 2017 Ortho oral tablet Daily, 0 and Refill(s) Spine carvedilol 25 mg 25 mg = 1 tab, Active oral tablet PO, BID, 0 2016 Ortho Refill(s) and Spine atorvastatin 10 10 mg = 1 tab, Active 1208 M H mg oral tablet PO, Daily, 0 2017 Orth o Refill(s) and Spine Allergies, Adverse Reactions, Alerts Substance Category Reaction Severity Reaction Status Date Comments S ource type Reported codeine Assertion Drug Active allergy 4 Ortho and Spine Immunizations No Data Provided for This Section Results No Data Provided for This Section Pathology Reports No Data Provided for This Section Diagnostic Reports Report Value Date Source Chest 1view DX EXAM: XR CHEST 1 VIEW 07/12/2018 [facility] DATE: 07/12/2018 9:19 CDT INDICATION: Coughing. FINDINGS: A single AP supine view of the chest is submitted without a prior study for comparison. Heart is not enlarged. Thora cic aorta is ectatic and tortuous with calcifications. A 3-lead left subclavian ICD has tips over the right atrium, right ventricle and coronary sinus. The lungs are slightly low in volume but clear. No pleural effusions. Bones are demineralized. The re is a right humeral prosthesis. Advanced degenerative changes of the thoracic spine and left shoulder with high riding humeral head. IMPRESSION: The lungs are slightly low in volume but clear. Consultation Notes No Data Provided for This Section Discharge Summaries No Data Provided for This Section History and Physicals No Data Provided for This Section Vital Signs Vital Sign Value Date Comments Source Systolic (mm Hg) 132 08/02/2018 Ortho an d Spine Diastolic (mm Hg) 84 08/02/2018 Ortho a nd Spine Respitory Rate 16 08/02/2018 Orth[facility] and Spine Respitory Rate 16 08/02/2018 [facility] Spine Systolic (mm Hg) 119 08/02/2018 Ortho an d Spine Diastolic (mm Hg) 66 08/02/2018 Ortho a nd Spine Systolic (mm Hg) 111 08/02/2018 Ortho an d Spine Diastolic (mm Hg) 60 08/02/2018 Ortho a nd Spine Respitory Rate 16 08/02/2018 Ortho and Spine Height 144.78 cm 07/17/2018 Ortho and Spine BMI Calculated 30.14 07/17/2018 Ortho and Spine Weight 63.182 07/17/2018 [facility] Ortho and Spine Systolic (mm Hg) 128 07/12/2018 MH Ortho an d Spine Diastolic (mm Hg) 71 07/12/2018 Ortho a nd Spine Respitory Rate 16 07/12/2018 Ortho and Spine Systolic (mm Hg) 125 07/12/2018 Ortho an d Spine Diastolic (mm Hg) 79 07/12/2018 Ortho a nd Spine Respitory Rate 16 07/12/2018 Ortho and Spine Systolic (mm Hg) 126 07/12/2018 MH Ortho an d Spine Diastolic (mm Hg) 72 07/12/2018 MH Ortho a nd Spine Respitory Rate 16 07/12/2018 [facility] Ortho and Spine Weight 63.182 07/12/2018 [facility] and Spine BMI Calculated 30.14 07/12/2018 [facility] Orth[facility] and Spine Height 144.78 cm 07/12/2018 MH Ortho and Spine Weight 63.182 07/12/2018 MH Ortho and Spine BMI Calculated 30.14 07/12/2018 MH [facility] and Spine Height 144.78 cm 06/28/2018 MH Ortho and Spine Heart Rate 63 03/16/2018 [facility] and Spine Systolic (mm Hg) 110 03/16/2018 MH Ortho an d Spine Diastolic (mm Hg) 61 03/16/2018 MH Ortho a nd Spine Respitory Rate 15 03/16/2018 MH Ortho and Spine Respitory Rate 17 03/16/2018 MH [facility] and Spine Heart Rate 65 03/16/2018 [facility] and Spine Systolic (mm Hg) 111 03/16/2018 MH Ortho an d Spine Diastolic (mm Hg) 67 03/16/2018 Ortho a nd Spine Heart Rate 61 03/16/2018 MH [facility]o and Spine Systolic (mm Hg) 118 03/16/2018 MH Ortho an d Spine Diastolic (mm Hg) 70 03/16/2018 MH Ortho a nd Spine Respitory Rate 17 03/16/2018 Ortho and Spine Weight 62.727 03/16/2018 Ortho and Spine BMI Calculated 29.93 03/16/2018 Ortho and Spine Height 144.78 cm 03/13/2018 MH Ortho and Spine Respitory Rate 16 03/09/2017 MH Ortho and Spine Systolic (mm Hg) 133 03/09/2017 MH Ortho an d Spine Diastolic (mm Hg) 77 03/09/2017 MH Ortho a nd Spine Respitory Rate 16 03/09/2017 MH Ortho and Spine Systolic (mm Hg) 118 03/09/2017 MH Ortho an d Spine Diastolic (mm Hg) 87 03/09/2017 MH Ortho a nd Spine Respitory Rate 14 03/09/2017 MH [facility]o and Spine Systolic (mm Hg) 127 03/09/2017 MH Ortho an d Spine Diastolic (mm Hg) 76 03/09/2017 Ortho a nd Spine Weight 64.091 03/09/2017 [facility] and Spine BMI Calculated 30.58 03/09/2017 [facility] and Spine Height 144.78 cm 03/03/2017 Ortho and Spine Encounters Location Location Encounter Encounter Reason Attending ADM PA Stat us Source Details Type Number For Provider Date Date Visit Day [id number] [place] 03/09 03/10 [facility] Surgery [facility] Ortho Orthopedic and and Spine Spine [facility] Day [id number] Jarod 03/16 03/17 [facility] Ortho Orthopedic and and Spine Spine [facility] [id number] Jarod 07/12 07/13 [facility] Ortho Orthopedic and and Spine Spine [facility] [id number] Jarod 08/02 08/03 [facility] Orthopedic and and Spine Spine [facility] Procedures Procedure Code Date Perfomer Comments Source Lumbar epidural [id number] 03/16/2018 Ortho and steroid injection Spine ICD - Internal [id number] 03/27/2004 Ortho a nd cardiac Spine defibrillator procedure Anaesthesia for [id number] right Ortho and total shoulder Spine replacement<sup>1</ sup> Laminectomy<sup>2</ [id number] lumbar MH Or tho and sup> Spine TKR -Total [id number] bilateral Ortho and prosthetic Spine replacement of knee joint using cement<sup>3</sup> Assessment and Plan Assessment and Plan Date Source Extracted from:Title: Clinical Document 08/03/2018 [facility] Spine Author: Jarod Loera MD Date: 08/02/18 History and Physical Update: 1. Required on all H&P's completed prior admission, within l ast 30 days. 2. Update must be completed post admissi on, within 24 hrs or prior to procedure, whichever comes first. Based on examination of the patient: No change in patient cu rrent condition Extracted from:Title: Clinical Document 07/13/2018 [facility]o [facility] Spine Author: Jarod Loera MD Date: 07/12/18 HISTORY AND PHYSICAL EXAMINATION/REVIEW OF SYSTEMS Present Complaint:_ bilat buttock post thigh pain Past History: chronic Alcohol Details: Never Exercise Details: Exercise duration: 30. Exercis e frequency: Daily. Exercise type: Walking. Tobacco Details: Use: Never smoker. Tobacco smo ke exposure: None. Did the Patient Smoke Cigarettes Anytime During the Last 365 Days? No. Cessation Counseling Provided? No. Substance Abuse Details: Use: None. Lumbar epidural steroid injection: 03/16/18 ICD - Internal cardiac defibrillator procedure: 2004 TKR -Total prosthetic replacement of knee joint using cement Anaesthesia for total shoulder replacement Laminectomy No qualifying data available Father: Heart disease Mother: High blood pressure; Thyroid; Uterus Brother: Heart attack; Heart disease Grandparent: Stroke; Type 2 diabetes mellitus Allergies Allergies (1) Active Reaction codeine None Documented Home Medications: Home Medications (12) Active atorvastatin 10 mg oral tablet 10 mg = 1 tab, PO, Daily carvedilol 25 mg oral tablet 25 mg = 1 tab, PO, BID furosemide 20 mg oral tablet 20 mg = 1 tab, PO, Daily hydrOXYzine 50 mg, PRN levothyroxine 50 mcg (0.05 mg) oral tablet 50 microgram = 1 tab, PO, Daily melatonin 10 mg, Bedtime Lamont-3 1000 mg oral capsule 1,000 mg = 1 cap, PO, Daily Osteo Bi-Flex oral tablet 1 tab, PO, Daily Tart prescott , Daily valsartan 80 mg oral tablet 80 mg = 1 tab, PO, Daily Vitamin B Complex oral tablet 1 tab, PO, Daily Vitamin D3 1000 intl units oral capsule 1,000 IntlUnit = 1 c ap, PO, Daily Vitals Signs: No qualifying data available General(_xAlert, Oriented, No Acute Distress):_ Pertinent Lab:___none HEENT (_x no mass or deformity):_ Torso/Breast (_ no mass or deformity):_ deferred Heart (_x normal Rhythm, no murmur or gallop):_ Lungs (_x Clear no auscultation):_ Abdomen (no mass or tenderness):_deferred Pelvic/Rectal (no mass or tenderness):_ defered Extremities (no edema or tenderness):_ deferred Neurological (_ intact):_ Impressions: _ Diagnosis: -lumbar radiculopathy 37771 -lumbago 1783 Treatment plan:_ bilat L3-5 TFESI Extracted from:Title: Clinical Document 03/17/2018 Ortho and Spine Author: Jarod Loera MD Date: 03/16/18 HISTORY AND PHYSICAL EXAMINATION/REVIEW OF SYSTEMS Present Complaint:_ bilat buttock right thigh pain Past History:chronic Alcohol Details: Never Exercise Details: Exercise duration: 30. Exercis e frequency: Daily. Exercise type: Walking. Tobacco Details: Use: Never smoker. Tobacco smo ke exposure: None. Did the Patient Smoke Cigarettes Anytime During the Last 365 Days? No. Cessation Counseling Provided? No. Substance Abuse Details: Use: None. ICD - Internal cardiac defibrillator procedure: 2004 TKR -Total prosthetic replacement of knee joint using cement Anaesthesia for total shoulder replacement Laminectomy No qualifying data available Father: Heart disease Mother: High blood pressure; Thyroid; Uterus Brother: Heart attack; Heart disease Grandparent: Stroke; Type 2 diabetes mellitus Allergies Allergies (1) Active Reaction codeine None Documented Home Medications: Home Medications (12) Active atorvastatin 10 mg oral tablet 10 mg = 1 tab, PO, Daily carvedilol 25 mg oral tablet 25 mg = 1 tab, PO, BID furosemide 20 mg oral tablet 20 mg = 1 tab, PO, Daily hydrOXYzine 50 mg, PRN levothyroxine 50 mcg (0.05 mg) oral tablet 50 microgram = 1 tab, PO, Daily melatonin 10 mg, Bedtime Lamont-3 1000 mg oral capsule 1,000 mg = 1 cap, PO, Daily Osteo Bi-Flex oral tablet 1 tab, PO, Daily Tart prescott , Daily valsartan 80 mg oral tablet 80 mg = 1 tab, PO, Daily Vitamin B Complex oral tablet 1 tab, PO, Daily Vitamin D3 1000 intl units oral capsule 1,000 IntlUnit = 1 c ap, PO, Daily Vitals Signs: Vital Signs (last 24 hrs) Last Charted Weight 62.727 kg (MAR 16:58) BMI 29.93 (MAR 16:58) General(_xAlert, Oriented, No Acute Distress):_ Pertinent Lab:___none HEENT (x_ no mass or deformity):_ Torso/Breast (_ no mass or deformity):_ x Heart (_x normal Rhythm, no murmur or gallop):_ Lungs (_x Clear no auscultation):_ Abdomen (no mass or tenderness):_deferred Pelvic/Rectal (no mass or tenderness):_ deferred Extremities (no edema or tenderness):_ deferred Neurological (_ intact):_deferred Impressions: _ Diagnosis: -lumbosacral spondylosis 07478 -lumbar disc degeneration [id number] -lumbar radiculopathy 47536 -lumbago 1783 - Treatment plan:_ right L3-5 TFESI Extracted from:Title: Clinical Document 03/10/2017 Ortho and Spine Author: Shivam Dwyer MD Date: 03/09/17 LUMBAR/SACRAL TRANSFORAMINAL EPIDURAL STEROID INJECTION PROCEDURE: 1) Right L3/4 transforaminal epidural steroid injection 2) Right L4/5 transforaminal epidural steroid injection 3) Fluoroscopic needle guidance OPERATIVE DIAGNOSIS: Lumbar radiculopathy PHYSICIAN: Shivam Dwyer MD MEDICATIONS INJECTED: 1 mL of Kennalog (40 mg/ml)+ 1 ml of 1 % lidocaine + 2 ml normal saline ESTIMATED BLOOD LOSS: None COMPLICATIONS: None TECHNIQUE: Time-out was taken to identify the correct patien t, procedure and side prior to starting the procedure. Lying in a prone position, the patient was prepped and draped in the [facility] sterile fashion using DuraPrep and a fenestrated drape. The area to be injected was determined under fluoroscopic guidance. L ocal anesthetic was given by raising a skin wheal and going down to the hub of a 27-gauge 1.25-inch needle. The 3.5-inch 25-gaug e Quincke needle was advanced toward the 6 oclock position of the pedicle at each above-named nerve root level. The needle was advanced to the final position via a lateral fluoroscopic intermittent image. Omnipaque 240 was injected and showed epidural spread and there was no vascular runoff. After a negative aspiration, the medication was then injected. The procedure was completed without complications and was tolerated well. The patient was monitored after the procedur e. The patient (or responsible libertarian) was given post-procedure and discharge instructions to follow at home. The patient was discharged in stable condition. A follow-up appointment was made. Plan of Care No Data Provided for This Section Social History Social History Date Source Social History TypeResponse 03/03/2017 [facility]o [facility] Spine Substance Abuse Use: None. Exercise Exercise duration: 30. Exercise frequency: Daily. Exercise type: Walking. Alcohol Never Smoking Status Never smoker; Exposure to Tobacco Smoke None; Cigarette Smoking Last 365 Days No; Reg Smoking Cessation Counseling No entered on: 08/02/18 Family History No Data Provided for This Section Advance Directives No Data Provided for This Section Functional Status No Data Provided for This Section
--- OUTSIDE RECORDS SUMMARY | 2020-01-25 22:02 | XMS REPORT | Clinical Summary ---
:1940 Author Organization [facility] Address [address] [place] [address] Care Team Providers Name Role Phone MD Scottie Primary Care Provider Allergies Active Allergy Reactions Severity Noted Date Comments Codeine 02/10/2016 Lisinopril 02/10/2016 Medications Medication Sig Dispensed Refills Start Date End Date Status hydrOXYzine TK 03/28 TO 1 3 02/06/2016 Activ e (ATARAX) 50 MG T PO Q 6 H tablet PRF ITCHING aspirin (ECOTRIN) Take 1 30 tablet 11 Ac tive 81 MG enteric tablet (81 coated tablet mg total) by mouth daily. omega-3/dha/epa/fis Take by 0 Active h oil (OMEGA-3 mouth. ORAL) glucosamine/chondr Take by 0 A ctive black A sod (OSTEO mouth. BI-FLEX ORAL) vitamin B complex Take by 0 Ac tive (B COMPLEX 1 ORAL) mouth. ergocalciferol, Take by 0 Acti ve vitamin D2, mouth daily. (VITAMIN D2 ORAL) ascorbic acid Take by 0 Active (VITAMIN C ORAL) mouth daily. flaxseed oil oil 0 Act eduardo valsartan (DIOVAN) Take 1 90 tablet 3 04/10/2019 Active 40 MG tablet tablet (40 mg total) by mouth daily. spironolactone Take 25 mg 0 Acti ve (ALDACTONE) 25 MG by mouth tablet daily. furosemide (LASIX) Take 20 mg 0 Active 20 mg tablet by mouth daily as needed. traZODone (DESYREL) Take 50 mg 0 Active 50 MG tablet by mouth nightly as needed for sleep. therapeutic Take 1 0 Active multivitamin tablet by (THERAGRAN) tablet mouth daily. gabapentin Take 300 mg 0 Active (NEURONTIN) 300 mg by mouth 2 capsule (two) times a day. magnesium oxide Take 400 mg 0 Ac tive (MAG-OX) 400 mg by mouth (241.3 mg daily. magnesium) tablet carvediloL (COREG) Take 1 60 tablet 11 09/26/2019 Active 12.5 MG tablet tablet (12.5 1 mg total) by mouth 2 (two) times a day. levothyroxine Take 1 90 tablet 2 11/08/2019 Activ e (SYNTHROID) 75 mcg tablet (75 tablet mcg total) by mouth daily. atorvastatin TAKE 1 90 tablet 3 11/05/2018 Discon tinued (LIPITOR) 10 MG TABLET EVERY 0 ( Discontinued by tablet DAY another clinician) levothyroxine TAKE 1 90 tablet 0 12/10/2018 Disco ntinued (SYNTHROID, TABLET EVERY 9 (Reor xander) LEVOXYL) 50 mcg MORNING tablet COCONUT OIL ORAL Take by 0 Dis continued mouth. 0 (Discontin ued by another clinician) TURMERIC ORAL Take by 0 Discon tinued mouth daily. 0 (Discon tinued by another clinician) valsartan (DIOVAN) Take 1 90 tablet 3 12/28/2018 Discontinued 40 MG tablet tablet (40 0 (Reord er) mg total) by mouth daily. carvedilol (COREG) Take 1 180 tablet 3 12/28/2018 Discontinued 12.5 MG tablet tablet (12.5 0 (D iscontinued by mg total) by another mouth 2 clinician) (two) times a day with meals. metFORMIN Take 1 60 tablet 1 12/28/2018 Discontin ued (GLUCOPHAGE) 1,000 tablet 0 ( Discontinued by mg tablet (1,000 mg another total) by clinician) mouth 2 (two) times a day with meals. levothyroxine TAKE 1 90 tablet 2 02/12/2019 Disco ntinued (SYNTHROID) 50 mcg TABLET EVERY 0 (Dose tablet MORNING adjustment ) metoprolol Take 50 mg 0 Disconti nued succinate XL by mouth 0 (Altern ate (TOPROL-XL) 50 mg daily. philomena hdez) 24 hr tablet levothyroxine Take 75 mcg 0 Disc ontinued (SYNTHROID) 75 mcg by mouth 0 ( Reorder) tablet daily. 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; Coronary artery disease involving [place] coronary artery of [place] heart without angina pectoris; Pre-op evaluati on; Falls frequentl y 09/23/2019 Travel 09/12/2019 Orders Only Cardiology Lico Luke Ischemic card iomyopathy (Primary Dx); R Chronic systoli c heart failure (HCC) 09/09/2019 Travel 08/27/2019 Travel 08/23/2019 Travel 07/29/2019 Hospital Encounter Procedural [facility] V-tach ( HCC); Cardiology Josr Higuera MD Congestive hea rt failure, unspecified HF chronicity, unspecified heart failure type (HCC) 06/12/2019 Telephone Cardiology Roxanne Arriaza Missed appointm ent D[facility] Low 04/29/2019 Hospital Encounter Procedural ValCarlos arambulati ve heart failure, unspecified HF chronicity, unspecified heart failure type (HCC); Cardiology Josr Higuera MD V-tach (HCC) 04/10/2019 Refill Cardiology Deny López Refill Caitie, [facility] 04/08/2019 Refill Cardiology [facility] Jennyill Merle oHlcomb MD 03/15/2019 Refill Cardiology [facility] Refill Merle Holcomb MD 02/11/2019 Refill Cardiology [facility] Refill Merle Holcomb MD 01/28/2019 Hospital Encounter Procedural [facility] Congesti ve heart Cardiology Josr Higuera MD failure with cardiomyopathy (HCC) after 01/24/2019 Surgical History Surgery Date Site/Laterality Comments CARDIAC DEFIBRILLATOR 05/27/2015 [employer] BIV ICD PLACEMENT Geneerator excha nged TOTAL KNEE ARTHROPLASTY SHOULDER SURGERY CARDIAC DEFIBRILLATOR 03/27/2009 - Biventricd ular AICD PLACEMENT 03/26/2010 Medical History Medical History Date Comments Systolic heart failure (HCC) Coronary artery disease Heart disease 100% occluded pRCA Hypercholesterolemia Hypertension Back pain Spinal stenosis Lumbar herniated disc Family History Medical History Relation Name Comments Diabetes Brother Heart disease Father Hypertension Father Hypertension Mother Diabetes Son Relation Name Status Comments Brother Father Mother Son Social History Tobacco Use Types Packs/Day Years Used Date Never Smoker Smokeless Tobacco: Never Used Tobacco Cessation: Counseling Given: Yes Alcohol Use Drinks/Week oz/Week Comments No Sex Assigned at Date Recorded Not on file COVID-19 Exposure Response Date Recorded In the last month, have you been in contact with No / Unsure 01/20/2020 2:28 PM CDT someone who was confirmed or suspected to have Coronavirus / COVID-19? Last Filed Vital Signs Not on file Plan of Treatment Date Type Specialty Care Team Description 02/14/2020 Office Visit Cardiology Marcos Tripp MD [address] [facility] [address] [place], [place] [address] Health Maintenance Due Date Last Done Comments DIABETIC FOOT EXAM 1950 URINE MICROALBUMIN 1950 SHINGLES VACCINES (#1) 1992 65+ PNEUMOCOCCAL VACCINE (2 of 2 - 07/25/2007 01/19/2016 PPSV23) DIABETES: RETINAL EYE EXAM 07/01/2019 06/30/2017, 7, 02/11/2016, Additional history exists INFLUENZA VACCINE 10/26/2019 01/04/2018, 01/04/2018, 01/04/2018, Additional history exists Results Not on fileafter 01/24/2019 Insurance Payer Benefit Plan / Subscriber ID Effective Phone Address T ype Group Dates MEDICARE MEDICARE PART A [id number] 2007-Pres [place], [place] Medicare AND B ent BCBS COMMERCIAL BCBS MEDICARE [id number] 2007-Pres Commercial SUPPLEMENT ent Advance Directives For more information, please contact: [phone] Type Date Recorded Patient Audio Experience Expert Explanati on Advance Directives, Living Will and Medical Power of Morning Show Producer
--- OUTSIDE RECORDS SUMMARY | 2020-01-25 22:04 | XMS REPORT | Continuity of Care Document ---
:1940 Author Organization [facility] t Address [address] [place] [address] Care Team Providers Name Role Phone Scottie HARVEY Primary Care Physician Maribel HARDEN Attending Clinician Unavailable Arsalan DOVE, Maranda Attending Clinician Godfrey Luke Attending Clinician Unavailable Lionel HARVEY, Kalen Attending Clinician Aicha Tripp MD Attending Clinician Mohsen Loera Attending Clinician Eren Dwyer Attending Clinician LIONEL Admitting Clinician Unavailable Payers Payer Name Policy Type Policy Effective Date Expiration Date Sour ce Number MEDICAREMEDICARE PART aganudsAV74 2007 Alberto farooqkaity Claudia AND 00:00:00 Hinduism [id number] 2007- [place] BC[place] COMMERCIALBCBS [id number] 2007 [place] MEDICARE 9 00:00:00 Hinduism [id number] [facility] ercial Problems Condition Condition Condition Status Onset Resolution Last Treating Co mments Source Name Details Category Date Date Treatment Clinician Date RADICULOPA Diagnosis Active 2018-08-02 Memoria THY 4-04 10:08:00 l 00:00: [place] RADICULOPA 00 THY Active 06/28/2018 [facility] LUMBAR Diagnosis Active 2016-032017-03-09 Mem oria RADICULOPA 2-05 13:15:00 l THY LUMBAR 00:00: [place] RADICULOPA 00 THY Active 02/28/2017 [facility] G[place] 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 [address]on artery artery 1-18 Methodi occlusion occlusion 00:00: st 00 Hyperlipid Hyperlipid Disease Active 2015-03 H aron emia emia 1-16 Methodi 00:00: st 00 Coronary Coronary Disease Active 2015-03 [place] arterioscl arterioscl 1-16 Me thodi erosis erosis 00:00: st 00 Ventricula Ventricula Disease Active 2015-03 [place] r r 1-16 Methodi tachycardi tachycardi 00:00: st a a 00 Essential Problem 2018-10-04 Me moria (primary) 11:31:04 l hypertensi [place] n on Essential (primary) hypertensi on 10/04/2018 [facility] Old Problem 2018-10-04 Memor ia myocardial 11:31:04 l infarction Old [place] myocardial infarction 10/04/2018 [facility] Cardiomyop Problem 2018-10-04 M emoria athy, 11:31:04 l unspecifie [place] d Cardiomyop athy, unspecifie d 10/04/2018 [facility] Hypothyroi Problem 2018-10-04 M emoria dism, 11:31:04 l unspecifie [place] d Hypothyroi dism, unspecifie d 10/04/2018 [facility] Presence Problem 2018-10-04 Mem oria of 11:31:04 l automatic Presence Her sosa (implantab of le) automatic cardiac (implantab defibrilla le) tor cardiac defibrilla tor 10/04/2018 [facility] Allergy Problem 2018-10-04 Alvarez ye status to 11:31:04 l narcotic Allergy Shaniqua nn agent status to status narcotic agent status 10/04/2018 [facility] Other long Problem 2018-10-04 M emoria term 11:31:04 l (current) Other [place] n drug intermodal customer service therapy (current) drug therapy 10/04/2018 [facility] Other Problem 2018-10-04 Memor ia spondylosi 11:31:04 l s with Other [place] radiculopa spondylosi thy, s with lumbar radiculopa region thy, lumbar region 10/04/2018 [facility] Cardiomyop Problem Active 2018-10-04 M emoria athy 11:31:04 l (disorder) [place] Cardiomyop athy (disorder) Active Problem 10/04/2018 [facility] Hyperchole Problem Active 2018-10-04 M emoria sterolemia 11:31:04 l (disorder) [place] Hyperchole sterolemia (disorder) Active Problem 10/04/2018 [facility] Hypertensi Problem Active 2018-10-04 M emoria ve 11:31:04 l disorder, [place] systemic Hypertensi arterial ve (disorder) disorder, systemic arterial (disorder) Active Problem 10/04/2018 [facility] Hypothyroi Problem Active 2018-10-04 M emoria dism 11:31:04 l (disorder) [place] Hypothyroi dism (disorder) Active Problem 10/04/2018 [facility] Restless Problem Active 2018-10-04 Mem oria legs 11:31:04 l (disorder) Restless He rmann legs (disorder) Active Problem 10/04/2018 [facility] Rheumatoid Problem Active 2018-10-04 M emoria arthritis 11:31:04 l (disorder) [place] Rheumatoid arthritis (disorder) Active Problem 10/04/2018 [facility] RADICULOPA Diagnosis Active 2017-03-09 Memoria THY, 13:15:00 l LUMBAR [place] REGION RADICULOPA THY, LUMBAR REGION Active [facility] [place] Interverte Problem 2017-032018-10-04 2018-10-04 Memoria bral disc 2-30 11:31:04 11:31:04 l disorders 03:39: Gopal with Interverte 50 radiculopa bral disc thy, disorders lumbar with region radiculopa thy, lumbar region 03/25/2018 10/04/2018 [facility] Allergies, Adverse Reactions, Alerts Allergy Allergy Status Severity Reaction(s) Onset Inactive Treating Comm ents Source Name Type Date Date Clinician Codeine Propensi Active 2015-03 Giordano ty to 04-11 Methodi adverse 00:00: st reaction 00 s to drug Lisinopr Propensi Active 2015-03 [place] ty to 04-11 Methodi adverse 00:00: st reaction 00 s to drug codeine codeine Active 2003-03 Memoria 0-27 l 00:00: [place] 00 Family History Family Member Diagnosis Comments Start Date Stop Date Source Natural brother Diabetes Pasquale Holder ethodist Natural father Heart disease Pasquale Hinduism Natural father Hypertension Pasquale Hinduism Natural mother Hypertension Giordano Hinduism Natural son Diabetes Pasquale Metho dist Social History Social Habit Start Date Stop Date Quantity Comments Source Sex Assigned At [facility] ethodist Exposure to Not sure Giordano Anne Marieo irina SARS-CoV-2 (event) Tobacco use and 2019-09-29 2019-09-29 Never used Pasquale Holder ethodist exposure 00:00:00 00:00:00 Alcohol intake 2019-09-29 2019-09-29 Current [facility] thodist 00:00:00 00:00:00 non-drinker of alcohol (finding) Social History 2017-03-03 2017-03-03 [facility] 17:17:51 17:17:51 Smoking Status Start Date Stop Date Source Never smoker [place] Alcira t Medications Ordered Filled Start Stop Current Ordering Indication Dosage Frequency Signature Comments Components Source Medication Medication Date Date Medication? Clinician (SIG) Name Name levothyroxi 2019-0 2020- No 75ug QD Take 75 [place] ne 8-14 08-14 mcg by Methodi (SYNTHROID) 16:42: 00:[address] 75 mcg 16 :00 daily. tablet levothyroxi 2019-0 Yes 75ug QD Take 1 [place] ne 8-14 tablet (75 Methodi (SYNTHROID) 00:00: mcg total) st 75 mcg 00 by mouth tablet daily. metoprolol 2020- No 50mg QD Take 50 mg Giordano succinate 09-25 by mouth Metho di XL 20:58: 00:[address] (TOPROL-XL) 55 :00 50 mg 24 hr tablet gabapentin 2019-0 Yes 300mg Q.5D Take 300 [place] (NEURONTIN) 7-02 mg by Methodi 300 mg 19:40: mouth 2 st capsule 58 (two) times a day. magnesium 2020-0 Yes 400mg QD Take 400 Ash[place] ston oxide 7-02 mg by Methodi (MAG-OX) 19:40: mouth st 400 mg 58 daily. (241.3 mg magnesium) tablet spironolact 2019-0 Yes 25mg QD Take 25 mg Giordano one 09-25 by mouth Methodi (ALDACTONE) 19:33: daily. st 25 MG 46 tablet furosemide 2020-0 Yes 20mg Q24H Take 20 mg [place] (LASIX) 20 09-25 by mouth Metho di mg tablet 19:33: daily as st 46 needed. traZODone 2020-0 Yes 50mg QD Take 50 mg Alberto sexton (DESYREL) 09-25 by mouth Method i 50 MG 19:33: nightly as st tablet 46 needed for sleep. therapeutic 2020-0 Yes 1{tbl} QD Take 1 Alberto sexton multivitami 09-25 tablet by Met rekha helton 19:33: mouth st (THERAGRAN) 46 daily. tablet aspirin 2020-0 Yes 81mg QD Take 1 Giordano (ECOTRIN) 09-25 tablet (81 Meth james 81 MG 19:28: mg total) st enteric 45 by mouth coated daily. tablet omega-3/dha 2020-0 Yes Take by Ashwin quintanilla /epa/fish 09-25 mouth. Methodi oil 19:28: st (OMEGA-3 45 ORAL) glucosamine 2020-0 Yes Take by Ashwin quintanilla /chondr black 09-25 mouth. Methodi A sod 19:28: st (OSTEO 45 BI-FLEX ORAL) vitamin B 2020-0 Yes Take by Gerald on complex (B 09-25 mouth. Methodi COMPLEX 1 19:28: st ORAL) 45 ergocalcife 2020-0 Yes QD Take by Ashwin quintanilla rol, 09-25 mouth Methodi vitamin D2, 19:28: daily. st (VITAMIN D2 45 ORAL) ascorbic 2020-0 Yes QD Take by Isaac helton acid 09-25 mouth Methodi (VITAMIN C 19:28: daily. st ORAL) 45 flaxseed 2020-0 Yes [place] oil oil 09-25 Methodi 19:28: st 45 TURMERIC 2020-0 2020- No QD Take by Gerald on ORAL 09-25 mouth Methodi 19:28: 00:[address] 27 :00 COCONUT OIL 2020-0 2020- No Take by Alberto sexton ORAL 09-25 mouth. Methodi 19:27: 00:00 st 32 :00 carvediloL 2020-0 2021- No 12.5mg Q.5D Take 1 Ho darshan (COREG) 09-25 tablet Methodi 12.5 MG 00:00: 23:59 (12.[address] tablet 00 :00 total) by mouth 2 (two) times a day. valsartan Yes 40mg QD Take 1 [place] (DIOVAN) 40 1-15 tablet (40 Me thodi MG tablet 00:00: mg total) st 00 by mouth daily. levothyroxi 2018-03- No TAKE 1 Ashwin ston ne 1-19 -02 TABLET Methodi (SYNTHROID) 00:00: 00:[address] 50 mcg 00 :00 MORNING tablet carvedilol 2018-03- No 12.5mg Q.5D Take 1 [place] (COREG) 0-04 07- tablet Methodi 12.5 MG 00:00: 00:00 (12.[address] tablet 00 :00 total) by mouth 2 (two) times a day with meals. metFORMIN 2018-03- No 1000mg Q.5D Take 1 Ashwin ston (GLUCOPHAGE 009-25 tablet Metho di ) 1,000 mg 00:00: 00:00 (1,000 mg s t tablet 00 :00 total) by mouth 2 (two) times a day with meals. valsartan 2018-03 No 40mg QD Take 1 [place] (DIOVAN) 40 0-04 01-15 tablet (40 M ethodi MG tablet 00:00: 00:00 mg total) st 00 :00 by mouth daily. levothyroxi 2018- No TAKE 1 Ashwin ston ne 9-16 11-18 TABLET Methodi (SYNTHROID, 00:00: 00:[address] LEVOXYL) 50 00 :00 MORNING mcg tablet atorvastati 2019- No TAKE 1 [place] ston n (LIPITOR) 8-12 09-25 TABLET Metho di 10 MG 00:00: 00:[address] tablet 00 :00 acetaminoph No Notes: Max Memoria en 08-02 acetaminop l 15:53: hen 4000 [place] 00 mg/day (4 gm/day). (Same as: Tylenol Extra Strength) Lactated No 1,000 mL, Alvarez ye Ringers IV 08-02 Rate: 125 l 1,000 mL 15:23: ml/hr, [place] 00 Infuse over: 8 hr, Route: IV, Dosing Weight 63.182 kg, Total Volume: 1,000, Start date: 08/02/18 10:23:00 CDT, Duration: 30 day, Stop date: 09/01/18 10:22:00 CDT, 1.62, m2 Acetaminoph Yes Notes: Alvarez ye en 10 MG/ML 08-02 Infuse l Injectable 15:23: over 15 Herm liam Solution 00 minutes Do not exceed 4gm/day of acetaminop hen MEDICATION WASTE Product Size: 1000 mg Product Wasted: ___ mg Hydromorpho No Notes: Alvarez ye ne 08-02 Same as l 15:23: Dilaudid [place] Acetaminoph No Notes: Do M emoria en 325 MG / 08-02 not exceed l Hydrocodone 15:23: 4gm/day of Gopal Bitartrate 00 acetaminop 10 MG Oral hen. Tablet (Same as: [place] 325/10) Ondansetron No Notes: Alvarez ye 08-02 (Same as: l 15:23: Zofran) Gopal MEDICATION WASTE Product Size: 4 mg Product Wasted: ___ mg 72 HR No 1 patch, Memoria Scopolamine 08-02 Route: l 0.0139 14:21: TOP, Drug [place] n MG/HR 00 Form: Transdermal ERFILM, Patch Dosing Weight 63.182, kg, PRE OP, Start date: 08/02/18 9:21:00 CDT, Duration: 30 day, Stop date: 09/01/18 9:20:00 CDT Zofran No Notes: Memoria -09 (Same as: l 14:19: Zofran) [place] MEDICATION WASTE Product Size: 4 mg Product Wasted: ___ mg Saline No Notes: Memoria Flush 0.9% 08-02 (Same as: l 14:10: BD [place] Posiflush) Lactated No 1,000 mL, Alvarez ye Ringers IV 08-02 Rate: 125 l 1,000 mL 14:10: ml/hr, Gopal Infuse over: 8 hr, Route: IV, Dosing Weight 63.182 kg, Total Volume: 1,000, Start date: 08/02/18 9:10:00 CDT, Duration: 30 day, Stop date: 09/01/18 9:09:00 CDT, 1.62, m2 Hydromorpho 2019- No Notes: Alvarez ye ne 4-18 Same as l 14:18: Dilaudid [place] 00 Ondansetron 2018- No Notes: Alvarez ye 4-18 (Same as: l 14:18: Zofran) [place] 00 MEDICATION WASTE Product Size: 4 mg Product Wasted: ___ mg Lactated No 1,000 mL, Alvarez ye Ringers IV -18 Rate: 125 l 1,000 mL 14:18: ml/hr, [place] 00 Infuse over: 8 hr, Route: IV, Dosing Weight 63.182 kg, Total Volume: 1,000, Start date: 07/12/18 9:18:00 CDT, Duration: 30 day, Stop date: 08/11/18 9:17:00 CDT, 1.62, m2 Acetaminoph 2019- No Notes: Alvarez ye en 10 MG/ML -18 Infuse l Injectable 14:18: over 15 Herm liam Solution 00 minutes Do not exceed 4gm/day of acetaminop hen MEDICATION WASTE Product Size: 1000 mg Product Wasted: ___ mg Acetaminoph No Notes: Do M emoria en 325 MG / 4-18 not exceed l Hydrocodone 14:18: 4gm/day of [place] Bitartrate 00 acetaminop 10 MG Oral hen. Tablet (Same as: [place] 325/10) Pepcid No 20 mg, Memoria 4-18 Route: l 13:27: IVPB, [place] 00 ONCE, Dosing Weight 63.182, kg, Start date: 07/12/18 8:27:00 CDT, Stop date: 07/12/18 8:27:00 CDT Zofran No 4 mg, Memoria 4-18 Route: IV, l 13:26: ONCE, [place] Dosing Weight 63.182, kg, Start date: 07/12/18 8:26:00 CDT, Stop date: 07/12/18 8:26:00 CDT Lactated No 1,000 mL, Alvarez ye Ringers IV -18 Rate: 30 l 1,000 mL 12:52: ml/hr, [place] 00 Infuse over: 33.3 hr, Route: IV, Dosing Weight 62.727 kg, Total Volume: 1,000, Start date: 07/12/18 7:52:00 CDT, Duration: 30 day, Stop date: 08/11/18 7:51:00 CDT, 1.62, m2 Saline No Notes: Memoria Flush 0.9% 18 Same as: l 12:52: BD [place] Posiflush Sterile Ondansetron 2017-03 No Notes: Alvarez ye 2-21 (Same as: l 16:20: Zofran [place] 00 ODT) Lactated 2017-03 No 1,000 mL, Alvarez ye Ringers IV 2-21 Rate: 125 l 1,000 mL 16:20: ml/hr, [place] 00 Infuse over: 8 hr, Route: IV, Dosing Weight 62.727 kg, Total Volume: 1,000, Start date: 03/16/18 10:20:00 EMERGENCY MEDICAL SERVICES COORDINATOR, Duration: 30 day, Stop date: 04/15/18 10:19:00 EMERGENCY MEDICAL SERVICES COORDINATOR, 1.62, m2 Acetaminoph 2017-03 No Notes: Alvarez ye en 10 MG/ML 2-21 Infuse l Injectable 16:20: over 15 Herm liam Solution 00 minutes Do not exceed 4gm/day of acetaminop hen MEDICATION WASTE Product Size: 1000 mg Product Wasted: ___ mg Acetaminoph 2017-03 No Notes: Do M emoria en 325 MG / 2-21 not exceed l Hydrocodone 16:20: 4gm/day of [place] Bitartrate 00 acetaminop 10 MG Oral hen. Tablet (Same as: [place] 325/10) Hydromorpho 2017-03 No Notes: Alvarez ye ne 2-21 Same as l 16:20: Dilaudid [place] 00 Ondansetron 2017-03 No Notes: Alvarez ye 2-21 (Same as: l 14:12: Zofran) [place] 00 MEDICATION WASTE Product Size: 4 mg Product Wasted: ___ mg Saline 2017-03 No Notes: Memoria Flush 0.9% 2-21 Same as: l 14:03: BD [place] Posiflush Sterile Lactated 2017-03 No 1,000 mL, Alvarez ye Ringers IV 2-21 Rate: 125 l 1,000 mL 14:03: ml/hr, [place] 00 Infuse over: 8 hr, Route: IV, Dosing Weight 62.727 kg, Total Volume: 1,000, Start date: 03/16/18 8:03:00 EMERGENCY MEDICAL SERVICES COORDINATOR, Duration: 30 day, Stop date: 04/15/18 8:02:00 EMERGENCY MEDICAL SERVICES COORDINATOR, 1.62, m2 Furosemide 2017-03 Yes 20 mg = 1 Me moria 20 MG Oral 2-18 tab, PO, l Tablet 17:11: Daily, 0 [place] 00 Refill(s) Lactated 2016-03 No 1,000 mL, Alvarez ye Ringers IV 214 Rate: 40 l 1,000 mL 19:59: ml/hr, [place] 00 Infuse over: 25 hr, Route: IV, Dosing Weight 64.091 kg, Total Volume: 1,000, Start date: 03/09/17 13:59:00 EMERGENCY MEDICAL SERVICES COORDINATOR, Duration: 30 day, Stop date: 04/08/17 13:58:00 EMERGENCY MEDICAL SERVICES COORDINATOR, 1.64, m2 Hydroxyzine 2016-03 Yes 0 Memori a 2-14 Refill(s) l 19:40: [place] 00 Melatonin 2016-03 Yes 10 mg, Memori a 2-14 Bedtime, 0 l 19:39: Refill(s) [place] 00 Tart prescott 2016-03 Yes Tart Memori a 2-08 prescott, l 17:29: Daily, [place] 00 Refill(s) 0 Vitamin B 2016-03 Yes 1 tab, PO, Me moria Complex 2-08 Daily, 0 l oral tablet 17:27: Refill(s) H ermann 00 [place]-3 2016-03 Yes 1,000 mg = Alvarez ye 1000 mg 2-08 1 cap, PO, l oral 17:27: Daily, 0 [place] capsule 00 Refill(s) Osteo 2016-03 Yes 1 tab, PO, Memori a Bi-Flex 2-08 Daily, 0 l oral tablet 17:26: Refill(s) H ermann 00 Vitamin D3 2016-03 Yes 1,000 Memori a 1000 intl 2-08 IntlUnit = l units oral 17:26: 1 cap, PO, H ermann capsule 00 Daily, 0 Refill(s) spironolact 2016-03 Yes 25 mg = 1 M emoria one 25 mg 2-08 tab, PO, l oral tablet 17:23: BID, 0 Herm liam 00 Refill(s) valsartan 2016-03 Yes 80 mg = 1 Mem oria 80 mg oral 2-08 tab, PO, l tablet 17:22: Daily, 0 [place] 00 Refill(s) levothyroxi 2016-03 Yes 50 Memori a ne 50 mcg 2-08 microgram l (0.05 mg) 17:22: = 1 tab, Herm liam oral tablet 00 PO, Daily, 0 Refill(s) carvedilol 2016-03 Yes 25 mg = 1 Me moria 25 mg oral 2-08 tab, PO, l tablet 17:21: BID, 0 [place] 00 Refill(s) atorvastati 2016-03 Yes 10 mg = 1 M emoria n 10 mg 2-08 tab, PO, l oral tablet 17:21: Daily, 0 He rmann 00 Refill(s) hydrOXYzine 2015-03 Yes TK 1/2 TO [place] (ATARAX) 50 1-12 1 T PO Q 6 Me thodi MG tablet 00:00: H PRF st 00 ITCHING Vital Signs Vital Name Observation Time Observation Value Comments Source Systolic (mm Hg) 2018-08-02 15:39:00 Alvarez rial [place] Diastolic (mm Hg) 2018-08-02 15:39:00 Mem orial [place] Respitory Rate 2018-08-02 15:39:00 Memori al [place] Respitory Rate 2018-08-02 15:33:00 Memori al [place] Systolic (mm Hg) 2018-08-02 15:33:00 Alvarez rial [place] Diastolic (mm Hg) 2018-08-02 15:33:00 Mem orial [place] Systolic (mm Hg) 2018-08-02 15:18:00 Alvarez rial [place] Diastolic (mm Hg) 2018-08-02 15:18:00 Mem orial [place] Respitory Rate 2018-08-02 15:18:00 Memori al [place] Height 2018-07-17 16:07:00 144.78 cm Memorial [place] BMI Calculated 2018-07-17 16:07:00 Memori al [place] Weight 2018-07-17 16:07:00 [facility] [place] Systolic (mm Hg) 2018-07-12 15:26:00 Alvarez rial [place] Diastolic (mm Hg) 2018-07-12 15:26:00 Mem orial [place] Respitory Rate 2018-07-12 15:26:00 Memori al [place] Systolic (mm Hg) 2018-07-12 15:16:00 Alvarez rial [place] Diastolic (mm Hg) 2018-07-12 15:16:00 Mem orial [place] Respitory Rate 2018-07-12 15:16:00 Memori al [place] Systolic (mm Hg) 2018-07-12 15:01:00 Alvarez rial [place] Diastolic (mm Hg) 2018-07-12 15:01:00 Mem orial [place] Respitory Rate 2018-07-12 15:01:00 Memori al [place] Weight 2018-07-12 13:18:00 [facility] [place] BMI Calculated 2018-07-12 13:18:00 Memori al [place] Height 2018-07-12 13:18:00 144.78 cm [facility] [place] Weight 2018-07-12 12:50:00 [facility] [place] BMI Calculated 2018-07-12 12:50:00 Memori al [place] Height 2018-06-28 20:00:00 144.78 cm Memorial [place] Heart Rate 2018-03-16 15:45:00 [facility] [place] Systolic (mm Hg) 2018-03-16 15:45:00 Alvarez rial [place] Diastolic (mm Hg) 2018-03-16 15:45:00 Mem orial [place] Respitory Rate 2018-03-16 15:45:00 Memori al [place] Respitory Rate 2018-03-16 15:30:00 Memori al [place] Heart Rate 2018-03-16 15:30:00 [facility] [place] Systolic (mm Hg) 2018-03-16 15:30:00 Alvarez rial [place] Diastolic (mm Hg) 2018-03-16 15:30:00 Mem orial [place] Heart Rate 2018-03-16 15:15:00 [facility] [place] Systolic (mm Hg) 2018-03-16 15:15:00 Alvarez rial [place] Diastolic (mm Hg) 2018-03-16 15:15:00 Mem orial [place] Respitory Rate 2018-03-16 15:15:00 Memori al [place] Weight 2018-03-16 13:58:00 [facility] [place] BMI Calculated 2018-03-16 13:58:00 Memori al [place] Height 2018-03-13 17:08:00 144.78 cm [facility] [place] Respitory Rate 2017-03-09 21:15:00 Memori al [place] Systolic (mm Hg) 2017-03-09 21:15:00 Alvarez rial [place] Diastolic (mm Hg) 2017-03-09 21:15:00 Mem orial [place] Respitory Rate 2017-03-09 21:00:00 Memori al [place] Systolic (mm Hg) 2017-03-09 21:00:00 Alvarez rial [place] Diastolic (mm Hg) 2017-03-09 21:00:00 Mem orial [place] Respitory Rate 2017-03-09 20:45:00 Memori al [place] Systolic (mm Hg) 2017-03-09 20:45:00 Alvarez rial [place] Diastolic (mm Hg) 2017-03-09 20:45:00 Mem orial [place] Weight 2017-03-09 19:27:00 [facility] [place] BMI Calculated 2017-03-09 19:27:00 Memori al [place] Height 2017-03-03 17:10:00 144.78 cm [facility] [place] Procedures Procedure Date / Time Performed Performing Clinician [facility] e Lumbar epidural steroid 2018-03-16 06:00:00 Alvarez rial [place] injection ICD - Internal cardiac 2004-03-27 00:00:00 Memor ial [place] defibrillator procedure Anaesthesia for total [facility] ermann shoulder replacement<sup>1</sup> Laminectomy<sup>2</sup> [facility] ermann replacement of knee joint using cement<sup>3</sup> Plan of Care Planned Activity Planned Date Details Comments Source Future Scheduled 2019-10-26 INFLUENZA VACCINE [place] [facility] 00:00:00 [code = INFLUENZA VACCINE] Future Scheduled 2019-07-01 DIABETES: RETINAL EYE Ho darshan [facility] 00:00:00 EXAM [code = DIABETES: RETINAL EYE EXAM] Future Scheduled 2007-07-25 65+ PNEUMOCOCCAL [place] [facility] Test 00:00:00 VACCINE (2 of 2 - PPSV23) [code = 65+ PNEUMOCOCCAL VACCINE (2 of 2 - PPSV23)] Future Scheduled 1992 SHINGLES VACCINES (#1) [facility] Test 00:00:00 [code = SHINGLES VACCINES (#1)] Future Scheduled 1952 DIABETIC FOOT EXAM [place] [facility] 00:00:00 [code = DIABETIC FOOT EXAM] Future Scheduled 1952 URINE MICROALBUMIN [place] [facility] 00:00:00 [code = URINE MICROALBUMIN] Encounters Start End Encounter Admission Attending Care Care Encounter Source Date/Time Date/Time Type Type Clinicians Facility Department ID 2019-07-29 2019-07-29 Outpatient VALDERRABAN [facility] [id number] [place] 00:00:00 00:00:00 NELY Odom 421 Meth james 2019-04-29 2019-04-29 Outpatient VALDERRABAN [facility] [id number] [place] 00:00:00 00:00:00 NELY Odom 375 Meth james 2019-01-28 2019-01-28 Outpatient [facility] [id number] [place] 00:00:00 00:00:00 538 Method i 2018-12-28 2018-12-28 Outpatient KURRELMEYER [facility] [id number] [place] 00:00:00 00:00:00 , KRYSTAL 392 Method i 2018-08-02 2018-08-02 Outpatient Evaristo [facility] [id number] 08:53:00 23:59:00 Jarod Garcia 2018-08-02 2018-08-02 Outpatient [facility] [id number] 08:53:00 08:53:00 [facility] 2018-07-12 2018-07-12 Outpatient Evaristo [facility] [id number] 07:41:00 23:59:00 Jarod Gonzalez 2018-07-12 2018-07-12 Outpatient [facility] [id number] 07:41:00 07:41:00 [facility] 2018-03-16 2018-03-16 Outpatient Evaristo [facility] [id number] 07:33:00 23:59:00 Jarod D 2017-03-09 2017-03-09 Outpatient TULIO Dwyer [facility] [id number] 13:07:00 23:59:00 Shivam Jason Results This patient has no known results.
[2020-01-25 23:09] LABS: Absolute Lymphocytes (CBC) 2.4 K/uL (0.7-4.9); Basophils % 0.5 % (0-1.3); Hematocrit 37.2 % (36.0-45.0); Lymphocytes % 23.5 % (15.3-44.8); MPV 8.1 fL (7.6-11.3); RBC Red Blood Cell Count 4.17 M/uL (3.86-4.86)
[2020-01-25 23:20] LABS: Protime INR 1.01
[2020-01-25 23:26] LABS: Potassium 4.3 mmol/L (3.5-5.1)
--- NOTE | 2020-01-25 23:31 | ER ---
Nurse's Notes [facility] Name: Dayana Sumner Age: 79 yrs Sex: Female : 1940 Arrival Date: 01/25/2020 Time: 22:01 Bed 8 Private MD: Diagnosis: Cerebral infarction Presentation: 01/24 22:22 Chief complaint: Patient states: Well about 2 hours or so ago, my left eye started sg drooping and my left arm is numb still, but my eye is not as droopy, my said its a lot better. I cant make a fist with my left hand like I normally can, so that's new. Coronavirus screen: Client denies travel out of the [place] in the last 14 days. At this time, the client does not indicate any symptoms associated with coronavirus-19. Ebola Screen: Patient negative for fever greater than or equal to 101.5 degrees Fahrenheit, and additional compatible Ebola Virus Disease symptoms Patient denies exposure to infectious person. Patient denies travel to an Ebola-affected area in the 21 days before illness onset. No symptoms or risks identified at this time. Initial Sepsis Screen: Does the patient meet any 2 criteria? No. Patient's initial sepsis screen is negative. Does the patient have a suspected source of infection? No. Patient's initial sepsis screen is negative. Risk Assessment: Do you want to hurt yourself or someone else? Patient reports no desire to harm self or others. Onset of symptoms was January 25, 2020. Care prior to arrival: None. Transition of care: patient was not received from another setting of care. 22:22 Method Of Arrival: Wheelchair sg 22:22 Acuity: HARSHIL 2 sg 22:22 Note pt unsure of exact time of onset of symptoms because she was not paying attention sg to the time of day, reports may have been about 2 hours ago. 23:10 Onset of symptoms was January 25, 2020 at 18:00. rr5 Triage Assessment: 22:20 General: Appears in no apparent distress. comfortable, Behavior is calm, cooperative, rr5 appropriate for age. Historical: - Allergies: 22:22 Codeine; sg - Home Meds: 22:22 BP med [Active]; gabapentin Oral [Active]; Januvia Oral [Active]; sg - PMHx: 22:22 Diabetes - NIDDM; Hypertension; neuropathy; sg - Immunization history:: Adult Immunizations up to date. - Social history:: Smoking status: Patient denies any tobacco usage or history of. Screenin:22 Abuse screen: Denies threats or abuse. Denies injuries from another. Nutritional sg screening: No deficits noted. Tuberculosis screening: No symptoms or risk factors identified. Never had TB. VAN Screening: Arm Drift: Patient shows no arm weakness. Patient is VAN negative. Visual Disturbance: No visual disturbance noted. Aphasia: No aphasia noted. Neglect: No neglect noted. Fall Risk None identified. 23:45 Patient has been NPO before screening. The patient is alert, able to follow commands. rr5 The patient does not exhibit slurred or garbled speech The patient is not exhibiting difficulty speaking. The patient does not exhibit difficulty understanding words. The patient is able to swallow own secretions with no drooling or need for suction. Patient tolerated one teaspoon of water. No drooling, immediate coughing, gurgling, or clearing of the throat was noted. The patient tolerated 90mL of water. No drooling, immediate coughing, gurgling, or clearing of the throat was noted. The patient passed the bedside swallow screening. Oral medications may be given as ordered. Contact Physician for further diet orders. Provider notified of bedside swallow screening results: Lenard Langston NP. Assessment: 22:20 Reassessment: a code stroke has been activated. sg 22:40 General: Appears in no apparent distress. comfortable, Behavior is calm, cooperative, rr5 appropriate for age. 22:40 Pain: Denies pain. Neuro: Level of Consciousness is awake, alert, obeys commands, rr5 Oriented to person, place, time, situation, Technology Assistant are cannot closed her left hand. Speech is normal, Facial droop on left, Facial symmetry: tongue is midline, Reports numbness in left hand and left arm. 22:40 Cardiovascular: Capillary refill < 3 seconds Patient's skin is warm and dry. rr5 Respiratory: Airway is patent Respiratory effort is even, unlabored, Respiratory pattern is regular, symmetrical. GI: No signs and/or symptoms were reported involving the gastrointestinal system. : No signs and/or symptoms were reported regarding the genitourinary system. EENT: No signs and/or symptoms were reported regarding the EENT system. Derm: Skin is intact, is healthy with good turgor, Skin temperature is warm. Musculoskeletal: Circulation, motion, and sensation intact. Capillary refill < 3 seconds. 22:55 Reassessment: Patient appears in no apparent distress at this time. ED provider and dr. angelo Badillo at bedside examining the patient she said the symptoms started at [id number]. 23:10 Reassessment: ED provider at bedside explaining the TPA she said the time of onset rr5 changed 6PM to 7PM. 23:58 Reassessment: Patient appears in no apparent distress at this time. Patient is alert, rr5 oriented x 3, equal unlabored respirations, skin warm/dry/pink. hospitalist at bedside examining the patient. 01/25 00:30 Reassessment: Patient appears in no apparent distress at this time. Patient is alert, rr5 oriented x 3, equal unlabored respirations, skin warm/dry/pink. complaining of restless leg syndrome, hospitalist aware with order made and carried out [facility]. 01:00 Reassessment: Patient appears in no apparent distress at this time. Patient is alert, rr5 oriented x 3, equal unlabored respirations, skin warm/dry/pink. Patient states symptoms have improved. Vital Signs: 01/24 22:20 BP 147 / 87; Pulse 87; Resp 16; Temp 98.2; Pulse Ox 100% on R/A; Weight 56.7 kg; Height sg 5 ft. 2 in. (157.48 cm); Pain 4/10; 23:20 BP 126 / 89; Pulse 79; Resp 16; Pulse Ox 98% ; rr5 01/25 00:00 BP 133 / 84; Pulse 73; Resp 17; Pulse Ox 100% ; rr5 01:00 BP 120 / 67; Pulse 70; Resp 19; Temp 98; Pulse Ox 99% ; rr5 01/24 22:20 Body Mass Index 22.86 (56.70 kg, 157.48 cm) sg Angelia Coma Score: 01/24 22:40 Eye Response: spontaneous(4). Verbal Response: oriented(5). Motor Response: obeys rr5 commands(6). Total: 15. 23:20 Eye Response: spontaneous(4). Verbal Response: oriented(5). Motor Response: obeys rr5 commands(6). Total: 15. 01/25 00:00 Eye Response: spontaneous(4). Verbal Response: oriented(5). Motor Response: obeys rr5 commands(6). Total: 15. 01:00 Eye Response: spontaneous(4). Verbal Response: oriented(5). Motor Response: obeys rr5 commands(6). Total: 15. NIH Stroke Scale Scores: 01/24 22:26 NIHSS Score: 1 pm1 22:27 NIHSS Score: 1 sg ED Course: 22:01 Patient arrived in ED. ag5 22:20 Patient has correct armband on for positive identification. Placed in gown. Bed in low rr5 position. Call light in reach. Side rails up X2. terminologist on. Pulse ox on. NIBP on. 22:22 Lenard Langston NP is PHCP. pm1 22:22 Codey Badillo MD is Attending Physician. pm1 22:22 Arm band placed on. sg 22:23 Triage completed. sg 22:42 Stroke CXR 1 View In Process Unspecified. EDMS 22:42 CT Stroke Brain w/o Contrast In Process Unspecified. EDMS 22:46 Inserted saline lock: 20 gauge in right antecubital area, using aseptic technique. ds4 Blood collected. 23:08 Ton Banks RN is Primary Nurse. rr5 23:29 Ton Arango MD is Hospitalizing Provider. pm1 01/25 01:10 No provider procedures requiring assistance completed. Patient admitted, IV remains in rr5 place. intact, No redness/swelling at site. 01:40 covid. rr5 Administered Medications: 01/24 23:57 Dru mg of (foLIC Acid 1 mg, NS 0.9% 100 ml) Route: IVPB; Site: right antecubital; rr5 01/25 00:15 Follow up: Response: No adverse reaction; IV Status: Completed infusion; IV Intake: rr5 100ml Point of Care Testing: Blood Glucose: 01/24 22:20 Blood Glucose: 108 mg/dL; sg Ranges: Intake: 01/25 00:15 IV: 100ml; Total: 100ml. rr5 Outcome: 01/24 23:30 Decision to Hospitalize by Provider. pm1 01/25 01:10 Admitted to Med/surg accompanied by tech, via stretcher, room 216, with chart, Report rr5 called to larilyn Condition: stable Instructed on the need for admit. 01:12 Patient left the ED. rr5 NIH Stroke Scale - NIH Stroke Score Date: 01/25/2020 Time: 22:26 Total Score = 1 1a. Level of Consciousness (LOC) - 0(Alert) 1b. Level of Consciousness (LOC) (Year \T\ Age) - 0(Both) 1c. LOC Commands (Open \T\ Closes Eyes/Human Resources Assistant) - 1(One) 2. Best Gaze (Lateral Gaze Paresis) - 0(Normal) 3. Visual Field Loss - 0(No visual loss) 4. Facial Palsy - 0(Normal) 5a. Left Arm: Motor (10-second hold) - 0(No drift) 5b. Right Arm: Motor (10-second hold) - 0(No drift) 6a. Left Leg: Motor (5-second hold - always test supine) - 0(No drift) 6b. Right Leg: Motor (5-second hold - always test supine) - 0(No drift) 7. Limb Ataxia (finger/nose \T\ heel/forde - test with eyes open) - 0(Absent) 8. Sensory Loss (pinprick arms/legs/face) - 0(Normal) 9. Best Language: Aphasia (description/naming/reading) - 0(No aphasia) 10. Dysarthria (speech clarity - read or repeat words) - 0(Normal) 11. Extinction and Inattention (visual/tactile/auditory/spatial/personal) - 0(No abnormality) Initials: pm1 NIH Stroke Scale - NIH Stroke Score Date: 01/25/2020 Time: 22:27 Total Score = 1 1a. Level of Consciousness (LOC) - 0(Alert) 1b. Level of Consciousness (LOC) (Year \T\ Age) - 0(Both) 1c. LOC Commands (Open \T\ Closes Eyes/Human Resources Assistant) - 1(One) 2. Best Gaze (Lateral Gaze Paresis) - 0(Normal) 3. Visual Field Loss - 0(No visual loss) 4. Facial Palsy - 0(Normal) 5a. Left Arm: Motor (10-second hold) - 0(No drift) 5b. Right Arm: Motor (10-second hold) - 0(No drift) 6a. Left Leg: Motor (5-second hold - always test supine) - 0(No drift) 6b. Right Leg: Motor (5-second hold - always test supine) - 0(No drift) 7. Limb Ataxia (finger/nose \T\ heel/forde - test with eyes open) - 0(Absent) 8. Sensory Loss (pinprick arms/legs/face) - 0(Normal) 9. Best Language: Aphasia (description/naming/reading) - 0(No aphasia) 10. Dysarthria (speech clarity - read or repeat words) - 0(Normal) 11. Extinction and Inattention (visual/tactile/auditory/spatial/personal) - 0(No abnormality) Initials: sg Signatures: Dispatcher [employer] EDMS Zachary Caballero RN RN sg Zhen Mary ds4 Lenard Langston NP [address]NA[address] pm1 Ton Banks RN RN rr5 Anabell Ochoa ag5 Corrections: (The following items were deleted from the chart) 01/24 22:27 22:22 NIHSS Score: 0 [facility] 23:18 23:17 Reassessment: ED provider at bedside explaining the TPA she said the time rr5 of onset changed 6PM to 7PM. rr5
--- NOTE | 2020-01-25 23:31 | EDPHYS ---
Physician Documentation [facility] Name: Dayana Sumner Age: 79 yrs Sex: Female : 1940 Arrival Date: 01/25/2020 Time: 22:01 Bed 8 Private MD: ED Physician Codey Badillo HPI: 01/24 22:26 This 79 yrs old Female presents to ER via Wheelchair with complaints of pm1 Numbness Of Hand, Eye Problem. 22:26 The patient presents to the emergency department with weakness of the left hand. pm1 Drooping of left eye and numbness to left cheek and left ear area. Onset: The symptoms/episode began/occurred Between 2099 to 2129 today. Context: occurred at home, occurred while the patient was cleaning up after dinner. Associated signs and symptoms: Pertinent negatives: headache, chest pain, shortness of breath. Severity of symptoms: in the emergency department the symptoms have improved left eye drooping resolved, but left hand is unable to make a full fist. 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 Current symptoms: Left hand weakness and numbness left cheek area. The patient has not experienced similar symptoms in the past. Historical: - Allergies: 22:22 Codeine; sg - Home Meds: 22:22 BP med [Active]; gabapentin Oral [Active]; Januvia Oral [Active]; sg - PMHx: 22:22 Diabetes - NIDDM; Hypertension; neuropathy; sg - Immunization history:: Adult Immunizations up to date. - Social history:: Smoking status: Patient denies any tobacco usage or history of. ROS: 22:26 Constitutional: Negative for fever, chills, and weight loss. pm1 22:26 ENT: Negative for injury, pain, and discharge, Neck: Negative for injury, pain, and swelling, Cardiovascular: Negative for chest pain, palpitations, and edema, Respiratory: Negative for shortness of breath, cough, wheezing, and pleuritic chest pain, Abdomen/GI: Negative for abdominal pain, nausea, vomiting, diarrhea, and constipation, Back: Negative for injury and pain. 22:26 Skin: Negative for injury, rash, and discoloration. 22:26 Eyes: Positive for drooping of left eye lid, Negative for vision loss, visual disturbance. 22:26 MS/extremity: Negative for injury or acute deformity, deformity. 22:26 Neuro: Positive for weakness, of the left hand, numbness left cheek area. Exam: 22:26 Constitutional: This is a well developed, well nourished patient who is awake, alert, pm1 and in no acute distress. Head/Face: Normocephalic, atraumatic. 22:26 Skin: Warm, dry with normal turgor. Normal color with no rashes, no lesions, and no evidence of cellulitis. 22:26 Cardiovascular: Exam negative for acute changes, Rate: normal, Rhythm: regular, Pulses: no pulse deficits are appreciated. 22:26 Respiratory: Exam negative for acute changes, respiratory distress, shortness of breath. 22:26 Abdomen/GI: Inspection: abdomen appears normal, Palpation: abdomen is soft and non-tender, in all quadrants. 22:26 Musculoskeletal/extremity: Extremities: all appear grossly normal, with no appreciated pain with palpation, Sensation intact. 22:26 Neuro: Orientation: is normal, Mentation: is normal, Cranial nerves: CN II- XII are normal as tested, Motor: moves all fours, strength is 5/5 in the right hand and right arm, Strength is 3/5 in the left hand, and inability to make a full fist, inability to test lower leg strength due to chronic back pain. Patient denies any leg weakness and inability to walk with walker. 5/5 strength bilateral ankles. Vital Signs: 22:20 BP 147 / 87; Pulse 87; Resp 16; Temp 98.2; Pulse Ox 100% on R/A; Weight 56.7 kg; Height sg 5 ft. 2 in. (157.48 cm); Pain 4/10; 23:20 BP 126 / 89; Pulse 79; Resp 16; Pulse Ox 98% ; rr5 01/25 00:00 BP 133 / 84; Pulse 73; Resp 17; Pulse Ox 100% ; rr5 01:00 BP 120 / 67; Pulse 70; Resp 19; Temp 98; Pulse Ox 99% ; rr5 01/24 22:20 Body Mass Index 22.86 (56.70 kg, 157.48 cm) NIH Stroke Scale Scores: 01/24 22:26 NIHSS Score: 1 pm1 22:27 NIHSS Score: 1 sg [place] Coma Score: 22:40 Eye Response: spontaneous(4). Verbal Response: oriented(5). Motor Response: obeys rr5 commands(6). Total: 15. 23:20 Eye Response: spontaneous(4). Verbal Response: oriented(5). Motor Response: obeys rr5 commands(6). Total: 15. 01/25 00:00 Eye Response: spontaneous(4). Verbal Response: oriented(5). Motor Response: obeys rr5 commands(6). Total: 15. 01:00 Eye Response: spontaneous(4). Verbal Response: oriented(5). Motor Response: obeys rr5 commands(6). Total: 15. MDM: 01/24 22:22 Patient medically screened. pm1 23:26 Physician consultation: Mario Schumacher MD was contacted at 23:26, regarding patient's pm1 condition, Discussed with Dr Schumacher the patient's uncertainty in time of her onset of symptoms and conversation with her son. She and her now believe that her weakness of her hand started between 6-7 PM. The patient wanted me to talk to her son, who is a ER MD, on the phone. Dr. Sumner does not think that the patient should be getting TPA because there is uncertainty in the time of her onset of symptoms and she has a current NIHSS = 1. Discussed with Dr. Schumacher and he agrees that we should not give TPA. He would like to admit the patient here. His impression is likely small vessel lacunar infarct. Would like aspirin, folic acid, statin, and blood pressure medications during hospitalization; and no CTA at the moment. 23:27 Data reviewed: vital signs. Data interpreted: Pulse oximetry: on room air is 100 %. pm1 Interpretation: normal. 23:28 Counseling: I had a detailed discussion with the patient and/or guardian regarding: the pm1 historical points, exam findings, and any diagnostic results supporting the discharge/admit diagnosis, the need for further work-up and treatment in the hospital. 01/24 22:26 Order name: Basic Metabolic Panel; Complete Time: 23:27 pm1 01/24 22:26 Order name: CBC with Diff; Complete Time: 23: pm1 01/24 22:26 Order name: Protime (+inr); Complete Time: 23:27 pm1 01/24 22:26 Order name: Ptt, Activated; Complete Time: 23:27 pm1 01/24 22:32 Order name: Glucose, Ancillary Testing; Complete Time: 22:43 EDMS 01/24 22:59 Order name: Glucose, Ancillary Testing; Complete Time: 23:27 EDMS 01/24 22:17 Order name: CT Stroke Brain w/o Contrast lp1 01/24 22:26 Order name: Stroke CXR 1 View pm1 01/24 22:26 Order name: EKG; Complete Time: 22:27 pm1 01/24 22:26 Order name: Accucheck; Complete Time: 22:56 pm1 01/24 22:26 Order name: Cardiac monitoring; Complete Time: 22:55 pm1 01/24 22:26 Order name: EKG - Nurse/Tech; Complete Time: 22:55 pm1 01/24 23:57 Order name: COVID-19 rr5 01/24 22:26 Order name: IV Saline Lock; Complete Time: 22:55 pm1 01/24 22:26 Order name: Labs collected and sent; Complete Time: 22:55 pm1 01/24 22:26 Order name: NPO; Complete Time: 23:08 pm1 01/24 22:26 Order name: O2 Per Protocol; Complete Time: 22:55 pm1 01/24 22:26 Order name: O2 Sat Monitoring; Complete Time: 22:55 pm1 01/24 22:26 Order name: Stroke Swallow Screen; Complete Time: 23:58 pm1 Administered Medications: 23:57 Dru mg of (foLIC Acid 1 mg, NS 0.9% 100 ml) Route: IVPB; Site: right antecubital; rr5 01/25 00:15 Follow up: Response: No adverse reaction; IV Status: Completed infusion; IV Intake: rr5 100ml Point of Care Testing: Blood Glucose: 01/24 22:20 Blood Glucose: 108 mg/dL; sg Ranges: Critical Glucose Levels:Adult <50 mg/dl or >400 mg/dl <40 mg/dl or >180 mg/dl Disposition: 01/25 06:28 Co-signature as Attending Physician, Codey Badillo MD. [email or web address] Disposition: 01/25/20 23:30 Hospitalization ordered by Ton Arango for Inpatient Admission. Preliminary diagnosis is Cerebral infarction. - Bed requested for Telemetry/MedSurg (Inpatient). - Status is Inpatient Admission. rr5 - Condition is Stable. - Problem is new. - Symptoms have improved. NIH Stroke Scale - NIH Stroke Score Date: 01/25/2020 Time: 22:26 Total Score = 1 1a. Level of Consciousness (LOC) - 0(Alert) 1b. Level of Consciousness (LOC) (Year \T\ Age) - 0(Both) 1c. LOC Commands (Open \T\ Closes Eyes/Dental Receptionist) - 1(One) 2. Best Gaze (Lateral Gaze Paresis) - 0(Normal) 3. Visual Field Loss - 0(No visual loss) 4. Facial Palsy - 0(Normal) 5a. Left Arm: Motor (10-second hold) - 0(No drift) 5b. Right Arm: Motor (10-second hold) - 0(No drift) 6a. Left Leg: Motor (5-second hold - always test supine) - 0(No drift) 6b. Right Leg: Motor (5-second hold - always test supine) - 0(No drift) 7. Limb Ataxia (finger/nose \T\ heel/forde - test with eyes open) - 0(Absent) 8. Sensory Loss (pinprick arms/legs/face) - 0(Normal) 9. Best Language: Aphasia (description/naming/reading) - 0(No aphasia) 10. Dysarthria (speech clarity - read or repeat words) - 0(Normal) 11. Extinction and Inattention (visual/tactile/auditory/spatial/personal) - 0(No abnormality) Initials: pm1 NIH Stroke Scale - NIH Stroke Score Date: 01/25/2020 Time: 22:27 Total Score = 1 1a. Level of Consciousness (LOC) - 0(Alert) 1b. Level of Consciousness (LOC) (Year \T\ Age) - 0(Both) 1c. LOC Commands (Open \T\ Closes Eyes/Dental Receptionist) - 1(One) 2. Best Gaze (Lateral Gaze Paresis) - 0(Normal) 3. Visual Field Loss - 0(No visual loss) 4. Facial Palsy - 0(Normal) 5a. Left Arm: Motor (10-second hold) - 0(No drift) 5b. Right Arm: Motor (10-second hold) - 0(No drift) 6a. Left Leg: Motor (5-second hold - always test supine) - 0(No drift) 6b. Right Leg: Motor (5-second hold - always test supine) - 0(No drift) 7. Limb Ataxia (finger/nose \T\ heel/forde - test with eyes open) - 0(Absent) 8. Sensory Loss (pinprick arms/legs/face) - 0(Normal) 9. Best Language: Aphasia (description/naming/reading) - 0(No aphasia) 10. Dysarthria (speech clarity - read or repeat words) - 0(Normal) 11. Extinction and Inattention (visual/tactile/auditory/spatial/personal) - 0(No abnormality) Initials: sg Signatures: Dispatcher [employer] EDMS Zachary Caballero RN RN sg Ana Abel RN RN Lenard Langston, INSTRUCTOR WARPER INSTRUCTOR WARPER pm1 Ton Banks RN RN rr5 Codey Badillo MD MD [email or web address] Corrections: (The following items were deleted from the chart) 00:51 01/24 23:30 Hospitalization Ordered by Ton Arango MD for Inpatient cg Admission. Preliminary diagnosis is Cerebral infarction. Bed requested for Telemetry/MedSurg (Inpatient). Status is Inpatient Admission. Condition is Stable. Problem is new. Symptoms have improved. pm1 01/25 01:12 00:51 01/25/2020 23:30 Hospitalization Ordered by Ton Arango MD for rr5 Inpatient Admission. Preliminary diagnosis is Cerebral infarction. Bed requested for Telemetry/MedSurg (Inpatient). Status is Inpatient Admission. Condition is Stable. Problem is new. Symptoms have improved. cg
[2020-01-25] MEDS ORDERED: NA CHLORIDE 0.9% 100 ML IV ONE (23:59)
[2020-01-25] MEDS ORDERED: FOLIC ACID 5 MG/ML VIAL ONE (23:59)
--- NOTE | 2020-01-26 00:42 | P.HP ---
Certification for Inpatient Patient admitted to: Inpatient With expected LOS: >2 Midnights Patient will require the following post-hospital care: None Practitioner: I am a practitioner with admitting privileges, knowledge of patient current condition, hospital course, and medical plan of care. Services: Services provided to patient in accordance with Admission requirements found in Title 42 Section 412.3 of the Code of Federal Regulations <Chacho Lowe - Last Filed: 01/26/20 00:36> Patient History Date of Service: 01/26/20 Primary Care Provider: Dr. Colin Reason for admission: CVA History of Present Illness: 79-year-old female with history of diabetes mellitus type 2, hypertension, cardiomyopathy, hypothyroidism presents emergency department for resolved left-sided facial numbness and left hand/ arm weakness. Patient reports that today around 1800 she was in the kitchen in notice that she felt like her left eye lid drooping and she is having trouble grabbing things with her left hand. Patient also reports noticing that she had some left-sided facial paresthesia at that time. Patient presented to the emergency department at around 10:20 pm for evaluation. Could stroke was called, patient was taken to CT and had CT head without contrast. CT head without contrast was negative. ED provider was not able to detect any facial droop or paresthesias, only noted neurological deficit was mild decrease in preanalytics team lead strength of the left hand (4/5). Case was discussed with the patient, neurology, and patient's son who is in the ED physician and the decision was made to not give t-PA as there was uncertainty regarding the actual time of onset in the symptoms were relatively minimal within an NIH of 1. The rest of the patient's workup was unremarkable, ED provider wishes to admit patient for further evaluation and management. When I saw the patient in the emergency department she is awake, alert, oriented x3. Only neurological deficit noted was 4/5 preanalytics team lead strength of the left hand. Patient be admitted for further evaluation and management. Case was discussed with neurology while patient was in the emergency department. - Past Medical/Surgical History Diabetic: No -: DM type 2 [id number] (not on medicine since Mar 2019) -: Hypertension -: Hypothyroidism -: Chronic CHF -: Pacemaker/defibrillator -: Hyperlipidemia -: Degenerative disk and joint disease, spine -: spinal stenosis -: Pacemaker defibrillator -: bilateral knee replacements -: r shoulder replaced Psychosocial/ Personal History: Patient is - Family History Father -: Heart disease, Hypertension, GI disease Mother -: Hypertension, Cancer Notes: uterine ca. 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 Home Medications: Aspirin Chewable [Aspirin Chewable*] 1 tab PO DAILY 01/26/20 Furosemide [Lasix*] 1 tab PO DAILYPRN PRN 01/26/20 Gabapentin [Neurontin*] 300 mg PO TID 01/26/20 Levothyroxine [Synthroid*] 1 tab PO DAILY 01/26/20 Magnesium Oxide [Magnesium] 1 tab PO DAILY 01/26/20 Melatonin 1 tab PO BEDTIME 01/26/20 Metoprolol Succinate [Toprol Xl*] 1 tab PO DAILY 01/26/20 Ondansetron [Zofran (Odt)*] 8 mg PO Q8HP 01/26/20 Promethazine Tab [Phenergan*] 1 tab PO Q6HP PRN 01/26/20 Ropinirole HCl 1 tab PO BEDTIME 01/26/20 Trazodone [Desyrel*] 1 tab PO BEDTIME 01/26/20 Valsartan [Diovan*] 1 tab PO DAILY 01/26/20 hydrOXYzine HCL [Atarax*] 1 tab PO DAILYPRN PRN 01/26/20 Review of Systems 10-point ROS is otherwise unremarkable Neurological: Weakness, As per HPI <Chacho Lowe - Last Filed: 01/26/20 00:36> Physical Examination - Physical Exam General: Alert, In no apparent distress HEENT: Atraumatic, PERRLA, Mucous membr. moist/pink Neck: Supple, 2+ carotid pulse no bruit, No LAD Respiratory: Clear to auscultation bilaterally, Normal air movement Cardiovascular: Regular rate/rhythm, Normal S1 S2 Gastrointestinal: Normal bowel sounds, No tenderness Musculoskeletal: No tenderness Integumentary: No rashes Neurological: Normal speech, Normal tone, Sensation intact, Cranial nerves 3-12 intact, Normal affect, Abnormal strength (4/5 preanalytics team lead strength left hand) - Studies Laboratory Data (last 24 hrs) 01/25/20 22:46: PT 11.9, INR 1.01, APTT 29.1 01/25/20 22:46: WBC 10.4, Hgb 12.3, Hct 37.2, Plt Count 338 01/25/20 22:46: Sodium 131 L, Potassium 4.3, BUN 28 H, Creatinine 1.29, Glucose 99 <Chacho Lowe - Last Filed: 01/26/20 00:36> - Studies Laboratory Data (last 24 hrs) 01/25/20 22:46: PT 11.9, INR 1.01, APTT 29.1 01/25/20 22:46: WBC 10.4, Hgb 12.3, Hct 37.2, Plt Count 338 01/25/20 22:46: Sodium 131 L, Potassium 4.3, BUN 28 H, Creatinine 1.29, Glucose 99 <Ton Arango - Last Filed: 01/26/20 09:38> Assessment and Plan - Plan Assessment Ischemic CVA Hypertension Chronic diastolic congestive heart failure Diabetes mellitus type 2 Hypothyroidism Plan Ischemic CVA: Neurology consult in place, continue with aspirin, folic acid, statin. Control blood pressure and blood sugar levels. 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 DVT prophylaxis Lovenox 40 mg subcutaneous once daily. Appreciate further input from neurology. Consult for physical therapy and speech therapy in place. Q 4 neuro checks. Hypertension: Home medications have been continued, will allow for some permissive hypertension Chronic diastolic congestive heart failure: Patient does not appear overload at this time, mild hyponatremia noted, continue with gentle hydration overnight. Diabetes mellitus type 2: A.c. HS Accu-Cheks scale insulin therapy. Patient has been well controlled without medical therapy for number of months now. Hypothyroidism: Home medication continued, check thyroid panel with morning labs. Discharge Plan: Home Plan to discharge in: 48 Hours - Advance Directives Does patient have a Living Will: No Does patient have a Durable POA for Healthcare: No - Code Status/Comfort Care Code Status Assessed: Yes (Full code) Critical Care: No Time Spent Managing Pts Care (In Minutes): 55 <Chacho Lowe - Last Filed: 01/26/20 00:36> - Plan Plan of care discussed with Chacho Lowe, and I agree with the management plan as noted above. Patient feeling well this morning, continues with decrease L hand preanalytics team lead strength, very minor weakness in LUE compared to RUE on exam unable to obtain MRI due to pt's pacemaker/defibrillator, will discuss with neurology for possible repeat CT <Ton Arango - Last Filed: 01/26/20 09:38>
[2020-01-26] MEDS: ROPINIROLE HCL 0.25 MG TAB PO SCH ×2 (01:27→21:23)
[2020-01-26] MEDS ORDERED: MELATONIN 5 MG TABLET PO PRN ×2 (01:27→02:03)
[2020-01-26] MEDS ORDERED: ONDANSETRON 4 MG/2 ML VIAL IV PRN (01:27)
[2020-01-26] MEDS ORDERED: TRAZODONE 50 MG TABLET PO PRN ×2 (01:27→02:04)
[2020-01-26] MEDS ORDERED: ACETAMINOPHEN 500 MG TAB PO PRN (01:27)
[2020-01-26] MEDS ORDERED: ROPINIROLE HCL 0.25 MG TAB ONE (01:35)
[2020-01-26] MEDS: NA CHLORIDE 0.9% 1,000 ML IV SCH ×3 (01:47→14:47)
[2020-01-26] MEDS ORDERED: ROPINIROLE HCL 0.25 MG TAB PO ONE (02:03)
[2020-01-26 03:30] VITALS: BMI 28.0
[2020-01-26] MEDS: METOPROLOL XL 50 MG TAB PO SCH (05:57)
[2020-01-26] MEDS: LEVOTHYROXINE SOD 0.075 MG TAB PO SCH (05:57)
[2020-01-26 06:26] LABS: Absolute Lymphocytes (CBC) 1.7 K/uL (0.7-4.9); Basophils % 0.5 % (0-1.3); Lymphocytes % 20.6 % (15.3-44.8); MPV 7.6 fL (7.6-11.3)
[2020-01-26 06:36] LABS: Urine Appearance CLEAR; Urine Bilirubin NEGATIVE (NEG); Urine Blood NEGATIVE (NEG); Urine Color YELLOW; Urine Glucose NEGATIVE (NEG); Urine Protein NEGATIVE (NEG); Urine Urobilinogen 0.2 mg/dL (0.2-1.0)
[2020-01-26 06:37] LABS: Urine Microscopic Reflex ORDER UMIC
[2020-01-26 06:44] LABS: Urine Bacteria <20 /HPF (<20); Urine Culture Reflex Order REFLEXED; Urine RBC NONE SEEN /HPF (NONE SEEN)
[2020-01-26 06:58] LABS: Albumin 2.8 g/dL (3.4-5.0); Bilirubin Total 0.4 mg/dL (0.2-1.0); Potassium 4.5 mmol/L (3.5-5.1); Protein, Total 6.3 g/dL (6.4-8.2); Thyroid Stimulating Hormone 0.063 uIU/mL (0.360-3.740)
[2020-01-26] MEDS: INSULIN -REGULAR HUMAN 50 UNIT/0.5 ML ML SQ SCH ×4 (07:30→21:00)
--- NOTE | 2020-01-26 07:45 | RAD REPORT ---
EXAM DESCRIPTION: RAD - Chest Single View - 01/25/2020 10:42 pm CLINICAL HISTORY: left sided weakness, stroke protocol COMPARISON: April 2019 TECHNIQUE: AP portable chest image was obtained 01/25/2020 10:42 pm . FINDINGS: Lung volumes are low. No peripheral mass or consolidation. Interstitial pattern is not sig nificantly different. No significant failure or volume overload seen. Defibrillator in place. Heart a nd vasculature are normal. No measurable pleural effusion and no pneumothorax. No acute bony abnormal ity seen. Right shoulder prosthesis in place. No acute aortic findings suspected. IMPRESSION: Low lung volume examination without acute cardiopulmonary finding. Minimal degrees of interstitial edema or infiltrate could be masked.
[2020-01-26] MEDS: GABAPENTIN 300 MG CAP PO SCH ×3 (09:10→21:24)
[2020-01-26] MEDS: ENOXAPARIN 40 MG/0.4 ML SQ SCH (09:10)
[2020-01-26] MEDS: FERROUS SULFATE 325 MG TAB PO SCH (09:10)
[2020-01-26] MEDS: FOLIC ACID 1 MG TABLET PO SCH (09:10)
[2020-01-26] MEDS: VALSARTAN 40 MG TAB PO SCH (09:11)
[2020-01-26] MEDS: ASPIRIN EC 81 MG TAB PO SCH (09:13)
--- NOTE | 2020-01-26 10:10 | EKG ---
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
--- NOTE | 2020-01-26 11:44 | RAD REPORT ---
EXAM DESCRIPTION: CT - Ct Stroke Brain Wo Cont - 01/26/2020 4:00 am CLINICAL HISTORY: NUMBNESS COMPARISON: 05/09/2019. TECHNIQUE: CT HEAD WITHOUT IV CONTRAST on 01/25/2020 10:17 PM CDT This exam was performed according to our departmental dose-optimization program, which includes autom ated exposure control, adjustment of the mA and/or kV according to patient size and/or use of iterati ve reconstruction technique. FINDINGS: There is no acute hemorrhage, mass effect or midline shift. Garibay-white differentiation is preserved. There is no hydrocephalus. There is no significant volume loss for age. The calvarium is intact. Orbits and globes are unremarkable. The frontal sinuses as well as the left maxillary sinus and bilateral ethmoid air cells are opacified. Mastoid air cells are clear. IMPRESSION: No acute intracranial findings. Electronically signed by: Hugh Guzman MD 01/25/2020 10:47 PM CDT Due to temporary technical issues with the PACS/Fluency reporting system, reports are being signed by the in house radiologists without review as a courtesy to insure prompt reporting. The interpreting radiologist is fully responsible for the content of the report.
--- NOTE | 2020-01-26 15:00 | P.PN ---
Subjective Date of Service: 01/26/20 Primary Care Provider: Dr. Colin Chief Complaint: CVA Subjective: Other (patient reports feeling ok this morning continues with L hand weakness, reports facial numbness has resolved) Review of Systems 10-point ROS is otherwise unremarkable Physical Examination - Vital Signs Temperature: 97.9 F Blood Pressure: 136/63 Pulse: 65 Respirations: 16 Pulse Ox (%): 94 - Physical Exam General: Alert, In no apparent distress, Oriented x3 HEENT: PERRLA, Mucous membr. moist/pink, EOMI, Sclerae nonicteric Neck: Supple Respiratory: Clear to auscultation bilaterally, Normal air movement Cardiovascular: No edema, Regular rate/rhythm, Normal S1 S2 Gastrointestinal: Soft and benign, Non-distended, No tenderness Musculoskeletal: No tenderness Integumentary: No rashes Neurological: Normal speech, Sensation intact, Normal affect, Other (normal visual moy), Abnormal strength (L hand: 3+/5, LUE/LLE: 4/5, RUE/RLE: 5/5, mild blunting of L nasolabial fold / asymmetry. ) - Studies Laboratory Data (last 24 hrs) 01/25/20 22:46: PT 11.9, INR 1.01, APTT 29.1 01/25/20 22:46: WBC 10.4, Hgb 12.3, Hct 37.2, Plt Count 338 01/25/20 22:46: Sodium 131 L, Potassium 4.3, BUN 28 H, Creatinine 1.29, Glucose 99 Assessment & Plan Physician Review Additional Text: Ischemic CVA Hypertension Chronic diastolic congestive heart failure Diabetes mellitus type 2 Hypothyroidism Plan Ischemic CVA: -continues with moderate deficit of left side, concerning and consistent with ischemic CVA -pt with multiple risk factors / comorbidities -unfortunately unable to obtain MRI due to pacemaker/defibrillator -will obtain repeat CT head 24hrs after initial to eval for hemorrhagic conversion and CTA head/neck for further evaluation of cause of CVA -Echo with bubble study and carotids ordered -neurology consulted - in agreement with plan, continue ASA, folic acid, statin -allow for permissive HTN -PT, speech therapy consulted Hypertension: Home medications have been continued, will allow for some permissive hypertension Chronic diastolic congestive heart failure: Patient does not appear overload at this time, mild hyponatremia noted, continue with gentle hydration overnight. Diabetes mellitus type 2: A.c. HS Accu-Cheks scale insulin therapy. Patient has been well controlled without medical therapy for number of months now. Hypothyroidism: Home medication continued Dispo: anticipate dc home pending above workup, likely tomorrow likely benefit from PT on discharge updated patient's son today Time Spent Managing Pts Care (In Minutes): 35
--- NOTE | 2020-01-26 19:22 | RAD REPORT ---
EXAM DESCRIPTION: US - CP - 01/26/2020 6:47 pm CLINICAL HISTORY: CVA COMPARISON: No comparisons TECHNIQUE: Real-time sonographic evaluation of bilateral carotid and vertebral systems was performed . Garibay scale and Doppler interrogation were performed with waveform tracing bilaterally. FINDINGS: Normal high resistance waveforms are noted in both external carotid arteries. The common c arotid arteries and internal carotid arteries show normal low resistance waveforms. Calcified plaquing changes are present at each carotid bulb. On visual inspection no significant degr ee of luminal narrowing identifiable. Peak systolic and end diastolic velocity values and the ICA/CCA ratios are in the non-hemodynamically significant range. Antegrade flow seen in both vertebral arteries. Velocity values and ratios were recorded and are retained in the patient's imaging records. IMPRESSION: Calcified plaquing changes are seen in each carotid bulb without significant luminal tabitha rowing. No evidence of a hemodynamically significant stenosis.
[2020-01-26] MEDS ORDERED: ATORVASTATIN 40 MG TAB PO SCH (21:00)
[2020-01-26 23:10] VITALS: O2SAT 96
[2020-01-27] MEDS: NA CHLORIDE 0.9% 1,000 ML IV SCH (02:54)
[2020-01-27 04:11] LABS: Absolute Lymphocytes (CBC) 1.9 K/uL (0.7-4.9); Basophils % 0.5 % (0-1.3); Hematocrit 32.1 % (36.0-45.0); Lymphocytes % 22.8 % (15.3-44.8); MPV 8.2 fL (7.6-11.3); RBC Red Blood Cell Count 3.62 M/uL (3.86-4.86)
[2020-01-27 04:27] LABS: Albumin 2.8 g/dL (3.4-5.0); Bilirubin Total 0.4 mg/dL (0.2-1.0); Magnesium 1.8 mg/dL (1.8-2.4); Potassium 4.5 mmol/L (3.5-5.1); Protein, Total 6.6 g/dL (6.4-8.2)
[2020-01-27] MEDS: LEVOTHYROXINE SOD 0.075 MG TAB PO SCH (06:54)
[2020-01-27] MEDS: METOPROLOL XL 50 MG TAB PO SCH (06:55)
[2020-01-27] MEDS: INSULIN -REGULAR HUMAN 50 UNIT/0.5 ML ML SQ SCH ×3 (07:30→16:19)
[2020-01-27] MEDS ORDERED: MAGNESIUM SULFATE 1 gm IVPB 1 GM/100 ML BAG IV ONE (09:00)
[2020-01-27] MEDS: GABAPENTIN 300 MG CAP PO SCH ×2 (09:12→13:12)
[2020-01-27] MEDS: VALSARTAN 40 MG TAB PO SCH (09:12)
[2020-01-27] MEDS: ASPIRIN EC 81 MG TAB PO SCH (09:13)
[2020-01-27] MEDS: FERROUS SULFATE 325 MG TAB PO SCH (09:13)
[2020-01-27] MEDS: FOLIC ACID 1 MG TABLET PO SCH (09:13)
[2020-01-27] MEDS: ENOXAPARIN 40 MG/0.4 ML SQ SCH (09:13)
--- NOTE | 2020-01-27 09:19 | RAD REPORT ---
EXAM DESCRIPTION: CT - Head Brain Wo Cont - 01/27/2020 8:49 am CLINICAL HISTORY: LT SIDED WEAKNESS, CVA Headache, drowsiness COMPARISON: Ct Stroke Brain Wo Cont dated 01/25/2020; Head Brain Wo Cont dated 05/09/2019 TECHNIQUE: All CT scans are performed using dose optimization technique as appropriate and may inclu de automated exposure control or mA/KV adjustment according to patient size. FINDINGS: No intracranial hemorrhage, hydrocephalus or extra-axial fluid collection.No areas of brai n edema or evidence of midline shift. Extensive chronic sinusitis is present involving the frontal, ethmoid, left maxillary sinus. The calv arium is intact. IMPRESSION: No acute intracranial abnormality. Extensive chronic sinusitis.
--- NOTE | 2020-01-27 09:23 | RAD REPORT ---
EXAM DESCRIPTION: CT - Head angio - 01/27/2020 8:49 am CLINICAL HISTORY: CVA, L weakness Headache, drowsiness, CVA COMPARISON: Head Brain Wo Cont dated 01/27/2020; Ct Stroke Brain Wo Cont dated 01/25/2020 TECHNIQUE: CT angiography of the head was performed with MIPs. All CT scans are performed using dose optimization technique as appropriate and may include automated exposure control or mA/KV adjustment according to patient size. FINDINGS: No evidence of aneurysm is detected. No flow-limiting stenosis or vascular malformation id entified. Antegrade flow is seen in the vertebral arteries. The vertebral arteries are codominant. The visualized dural venous sinuses are patent. IMPRESSION: No significant flow abnormality is detected.
--- NOTE | 2020-01-27 10:00 | RAD REPORT ---
EXAM DESCRIPTION: CT - Neck Angio - 01/27/2020 8:49 am CLINICAL HISTORY: CVA Headache, drowsiness, CVA symptomology COMPARISON: No comparisons TECHNIQUE: CT angiography of the neck vessels was performed with MIPs. All CT scans are performed using dose optimization technique as appropriate and may include automated exposure control or mA/KV adjustment according to patient size. FINDINGS: A left aortic arch is identified with normal configuration of the great vessels. No significant flow abnormality is seen of the common carotid bilaterally. No significant stenosis is identified involving the cervical segments of both internal carotid arteri es. Mild atheromatous plaquing is present in both carotid bulbs. Normal flow is seen within both vertebral arteries. IMPRESSION: No significant flow abnormality of the neck vessels is identified. Mild atherosclerotic plaquing in both carotid bulbs.
[2020-01-27 16:58] VITALS: BP 149/66; TEMP 97.8
--- NOTE | 2020-01-27 18:51 | P.DS ---
Admission Date: 01/26/20 Discharge Date: 01/27/20 Primary Care Provider: Dr. Colin Disposition: ROUTINE DISCHARGE Discharge Condition: GOOD Reason for Admission: CVA with left-sided weakness Consultations: Neurology - Dr. Schumacher Procedures: CT brain (01/24): No acute intracranial findings CXR (01/24): Low lung volume exam without acute cardiopulmonary finding. Carotid artery ultrasound (01/25): Calcified plaque changes seen in each carotid bulb without significant luminal narrowing. No evidence of hemodynamically significant stenosis. Repeat CT brain (01/26): No acute intracranial abnormality. Extensive chronic sinusitis CTA head and neck (01/26): No significant flow abnormality of the neck vessels is identified. Mild atherosclerotic plaquing in both carotid bulbs. No evidence of aneurysm is detected. No flow-limiting stenosis or vascular malformation identified. Antegrade flow seen in the vertebral arteries. The vertebral arteries are codominant TTE (01/26): Normal LV EF: 55-60% with normal wall motion. Negative bubble study for intraatrial shunt. Mild TR, mild AR, mild MR. No thrombus in the LV Problem list Ischemic CVA with residual L sided weakness Hypertension Chronic diastolic congestive heart failure Diabetes mellitus type 2 Hypothyroidism Brief History of Present Illness: 79yo female, PMH: diabetes mellitus type 2, hypertension, cardiomyopathy, hypothyroidism who presented to the ED for resolved left sided facial numbness, left eyelid drooping, and left hand/arm weakness. A code stroke was called and patient was taken for CT brain which was negative. She was noted to have mild decrease in cafeteria helper strength of left hand (4/5). The case was discussed with neurology and the patient's son who is in the ED physician and that decision was made to not give TPN starts uncertainty regarding the actual time of onset of her symptoms and. Patient's NIH of 1 in the ED. Hospital Course: Patient was unable to get an MRI due to her pacemaker/defibrillator. She underwent further evaluation with a repeat CT brain 24 hr after the initial one, along with a CTA head and neck. These were all negative for any acute abnormalities. She underwent an echocardiogram which was normal as noted above. On day of discharge, patient continued to have weakness of her left hand (4/5), and very mild 4+/5 weakness of left upper and left lower extremities. There is also very mild blunting of her left nasolabial crease / dimple area which may just be her normal facial asymmetry. Her findings were discussed with neurology and patient was discharged on aspirin 81 mg, folic acid 1 mg daily, and atorvastatin 40 mg. She was evaluated by physical therapy and will be discharged home with home health and PT/OT. She will follow up with Dr. Schumacher in 1 month. Vital Signs/Physical Exam: Temp Pulse Resp BP Pulse Ox 97.8 F 68 15 149/66 H 97 01/27/20 16:00 01/27/20 16:00 01/27/20 16:00 01/27/20 16:00 01/27/20 16:00 General: Alert, In no apparent distress, Oriented x3 HEENT: PERRLA, Mucous membr. moist/pink, EOMI, Sclerae nonicteric Neck: No LAD Respiratory: Clear to auscultation bilaterally, Normal air movement Cardiovascular: No edema, Regular rate/rhythm, Normal S1 S2 Gastrointestinal: Soft and benign, Non-distended, No tenderness Musculoskeletal: No tenderness Integumentary: No rashes Neurological: Normal speech, Sensation intact, Normal affect, Abnormal strength (4/5 L cafeteria helper strength, LUE: 4+/5, LLE: 4+/5, RUE & RLE: 5/5) Laboratory Data at Discharge: WBC 8.3 K/uL (4.3-10.9) 01/27/20 03:31 Hgb 10.9 g/dL (12.0-15.0) L 01/27/20 03:31 Hct 32.1 % (36.0-45.0) L 01/27/20 03:31 Plt Count 311 K/uL (152-406) 01/27/20 03:31 PT 11.9 SECONDS (9.5-12.5) 01/25/20 22:46 INR 1.01 01/25/20 22:46 APTT 29.1 SECONDS (24.3-36.9) 01/25/20 22:46 Sodium 136 mmol/L (136-145) 01/27/20 03:31 Potassium 4.5 mmol/L (3.5-5.1) 01/27/20 03:31 BUN 24 mg/dL (7-18) H 01/27/20 03:31 Creatinine 1.04 mg/dL (0.55-1.3) 01/27/20 03:31 Glucose 85 mg/dL (74-106) 01/27/20 03:31 Magnesium 1.8 mg/dL (1.8-2.4) 01/27/20 03:31 Total Bilirubin 0.4 mg/dL (0.2-1.0) 01/27/20 03:31 AST 28 U/L (15-37) 01/27/20 03:31 ALT 34 U/L (12-78) 01/27/20 03:31 Alkaline Phosphatase 75 U/L (45-117) 01/27/20 03:31 Triglycerides 92 mg/dL (<150) 01/27/20 03:31 Cholesterol 124 mg/dL (<200) 01/27/20 03:31 HDL Cholesterol 47 mg/dL (40-60) 01/27/20 03:31 Cholesterol/HDL Ratio 2.64 01/27/20 03:31 Home Medications: Aspirin Chewable [Aspirin Chewable*] 1 tab PO DAILY 01/26/20 Furosemide [Lasix*] 1 tab PO DAILYPRN PRN 01/26/20 Gabapentin [Neurontin*] 300 mg PO TID 01/26/20 Levothyroxine [Synthroid*] 1 tab PO DAILY 01/26/20 Magnesium Oxide [Magnesium] 1 tab PO DAILY 01/26/20 Melatonin 1 tab PO BEDTIME 01/26/20 Metoprolol Succinate [Toprol Xl*] 1 tab PO DAILY 01/26/20 Ondansetron [Zofran (Odt)*] 8 mg PO Q8HP 01/26/20 Promethazine Tab [Phenergan*] 1 tab PO Q6HP PRN 01/26/20 Ropinirole HCl 1 tab PO BEDTIME 01/26/20 Trazodone [Desyrel*] 1 tab PO BEDTIME 01/26/20 Valsartan [Diovan*] 1 tab PO DAILY 01/26/20 hydrOXYzine HCL [Atarax*] 1 tab PO DAILYPRN PRN 01/26/20 Atorvastatin Calcium 40 mg PO BEDTIME #30 tablet 01/27/20 Folic Acid 1 mg PO DAILY 30 Days #30 tablet 01/27/20 New Medications: Atorvastatin Calcium 40 mg PO BEDTIME #30 tablet Folic Acid 1 mg PO DAILY 30 Days #30 tablet Patient Discharge Instructions: follow up with PCP within 1 week. follow up with Dr. Schumacher (Neurology) in 1 month. Medications: take Aspirin 81mg daily. take Folic acid 1mg daily. take Atorvastatin 40mg every night Diet: Regular Activity: Ad fior Followup: Mario Schumacher MD [ASSOCIATE-ACTIVE - CAN ADMIT] - Unknown,U [Primary Care Provider] - Time spent managing pt's care (in minutes): 35
--- NOTE | 2020-01-28 08:29 | ECHO ---
HEIGHT: 4 ft 9 in WEIGHT: 129 lb 14.4 oz DATE OF STUDY: 01/27/[address]: Ton Arango MD 2-DIMENSIONAL: YES M.MODE: YES DOPPLER: YES COLOR FLOW: YES TDS: NO PORTABLE: NO DEFINITY: NO BUBBLE STUDY: YES DIAGNOSIS: EVALUATE FOR SEPTAL DEFECT, THROMBUS CARDIAC HISTORY: CATHERIZATION: YES SURGERY: NO PROSTHETIC VALVE: NO PACEMAKER: YES MEASUREMENTS (cm) DIASTOLIC (NORMALS) SYSTOLIC (NORMALS) IVSd 0.9 (0.6-1.2) LA Diam 3.0 (1.9-4.0) LVEF 57% LVIDd 3.1 (3.5-5.7) LVIDs 2.2 (2.0-3.5) %FS 29% LVPWd 0.9 (0.6-1.2) Ao Diam 2.6 (2.0-3.7) 2 DIMENSIONAL ASSESSMENT: RIGHT ATRIUM: NORMAL LEFT ATRIUM: NORMAL RIGHT VENTRICLE: NORMAL LEFT VENTRICLE: NORMAL TRICUSPID VALVE: MITRAL VALVE: PULMONIC VALVE: NORMAL AORTIC VALVE: PERICARDIAL EFFUSION: NONE AORTIC ROOT: NORMAL LEFT VENTRICULAR WALL MOTION: NORMAL DOPPLER/COLOR FLOW: NORMAL COMMENTS: NORMAL LEFT VENTRICULAR EJECTION FRACTION 55-60% WITH NORMAL WALL MOTION. NEGATIVE BUBBLE STUDY FOR INTRA ATRIAL SHUNT. MILD TRICUSPID, AORTIC AND MITRAL REGURGITATION. TECHNOLOGIST: Jose David MCCLURE
== END 2020-01-27 19:33 | disposition home health service (06) | DRG 65 ==
LOC: ER 21:58 → ERHOLD 01-26 00:26 → 2ND 01-26 02:01
PROVIDERS: ADMIT Hospitalist; ATTEND Hospitalist
DX: I63.9 Cerebral infarction, unspecified (principal); I50.32 Chronic diastolic (congestive) heart failure; E87.1 Hypo-osmolality and hyponatremia; G81.94 Hemiplegia, unspecified affecting left nondominant side; I11.0 Hypertensive heart disease with heart failure; E78.5 Hyperlipidemia, unspecified; E11.9 Type 2 diabetes mellitus without complications; E03.9 Hypothyroidism, unspecified; H02.402 Unspecified ptosis of left eyelid; R20.0 Anesthesia of skin; R29.701 NIHSS score 1; R40.2362 Coma scale, best motor response, obeys commands, at arrival to emergency department; R40.2142 Coma scale, eyes open, spontaneous, at arrival to emergency department; R40.2252 Coma scale, best verbal response, oriented, at arrival to emergency department; Z79.899 Other long term (current) drug therapy; Z88.5 Allergy status to narcotic agent; Z95.810 Presence of automatic (implantable) cardiac defibrillator; Z96.653 Presence of artificial knee joint, bilateral; Z88.8 Allergy status to other drugs, medicaments and biological substances; Z79.82 Long term (current) use of aspirin; Z79.890 Hormone replacement therapy; Z20.828 Contact with and (suspected) exposure to other viral communicable diseases
CPT/HCPCS: 36415; 70450; 70496; 70498; 71045; 80048; 80053; 80061; 81003; 81015; 82947; 83036; 83735; 84439; 84443; 85025; 85610; 85730; 87086; 87088; 93005; 93306; 93880; 96365; 97112; 97116; 97530; 99285; J1650; J2405; J3475; J7030; Q9967; U0003

== ENCOUNTER 2020-03-05 10:41 | Emergency (ER) | payer OTHER, BC ==
--- OUTSIDE RECORDS SUMMARY | 2020-03-05 10:56 | XMS REPORT | Clinical Summary ---
:1940 Author Organization [facility] Address [address] [place] [address] Care Team Providers Name Role Phone MD [...] daily. flaxseed oil oil 0 Act eduardo furosemide (LASIX) Take 20 mg 0 Active [...] by mouth (241.3 mg daily. magnesium) tablet levothyroxine Take 1 90 tablet 2 11/08/2019 Activ e (SYNTHROID) 75 mcg tablet (75 tablet mcg total) by mouth daily. valsartan (DIOVAN) Take 1 90 tablet 3 02/14/2020 Active 80 MG tablet tablet (80 mg total) by mouth daily. metoprolol Take 1 90 tablet 3 02/14/2020 Active succinate XL tablet (50 1 (TOPROL-XL) 50 mg mg total) by 24 hr tablet mouth daily. atorvastatin Take 1 90 tablet 3 02/14/2020 Active (LIPITOR) 40 mg tablet (40 1 tablet mg total) by mouth daily. apixaban (Eliquis) Take 1 60 tablet 0 02/14/2020 Active 5 mg tablet tablet (5 mg total) by mouth 2 (two) times a day. apixaban (Eliquis) Take 1 180 tablet 3 02/18/2020 Active 5 mg tablet tablet (5 mg total) by mouth 2 (two) times a day. atorvastatin TAKE 1 90 tablet 3 11/05/2018 Discon tinued (LIPITOR) 10 MG TABLET EVERY 0 ( Discontinued by tablet DAY another clinician) COCONUT OIL ORAL Take by 0 Dis [...] EVERY 0 (Dose tablet MORNING adjustment ) valsartan (DIOVAN) Take 1 90 tablet 3 04/10/2019 Discontinued 40 MG tablet tablet (40 0 (Reord er) mg total) by mouth daily. spironolactone Take 25 mg 0 Disc ontinued (ALDACTONE) 25 MG by mouth 0 (P atient tablet daily. Reported) metoprolol Take 50 mg 0 Disconti nued succinate XL by mouth 0 (Altern ate (TOPROL-XL) 50 mg daily. th erapy) 24 hr tablet levothyroxine Take 75 mcg 0 Disc ontinued (SYNTHROID) 75 mcg by mouth 0 ( Reorder) tablet daily. carvediloL (COREG) Take 1 60 tablet 11 09/26/2019 Discontinued 12.5 MG tablet tablet (12.5 0 mg total) by mouth 2 (two) times a day. apixaban (Eliquis) Take 1 180 tablet 3 02/14/2020 Discontinued 5 mg tablet tablet (5 mg 0 (Reor xander) total) by mouth 2 (two) times a day. 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); Essential hyper tension; Coronary artery disease due to lipid rich plaque; Mixed hyperlipi demia; 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 02/18/2020 Refill Cardiology Lico Luke Med Refill R 02/17/2020 Travel 02/13/2020 Travel 02/07/2020 Telephone Cardiology Qasim, Appointment Merle Holcomb MD 02/04/2020 Orders Only Cardiology Lico Luke Chronic combi cosmo systolic and diastolic congestive heart failure (HCC) (Primary Dx); R Coronary artery disease involving [place] coronary artery of [place] heart without angina pectoris; Essential hyper tension; Mixed hyperlipi demia; Type 2 diabetes mellitus without complication, without long-term current use of insulin (HCC) 02/03/2020 Telephone Cardiology Qasim, Release of Info rmation Merle Holcomb MD 01/20/2020 Travel 11/08/2019 Refill Cardiology Deny López Refill [facility]INA Blood 10/28/2019 Hospital Encounter Procedural Valtyesha, V-tach ( 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); Cardiology Josr Higuera MD Congestive hea rt failure, unspecified HF chronicity, unspecified heart failure type (HCC) 06/12/2019 Telephone Cardiology Roxanne Arriaza Missed appointm ent DERRELL Low 04/29/2019 Hospital Encounter Procedural ValValentin [place] ve heart failure, unspecified HF chronicity, unspecified heart failure type (HCC); Cardiology Josr Higuera MD V-tach (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 Last Filed Vital Signs Not on file Plan of Treatment Date Type Specialty Care Team Description 03/06/2020 Appointment Procedural Cardiology Merle Mares MD [address] [facility] [address] [place] [address] [phone] Health Maintenance Due Date Last Done Comments DIABETIC FOOT EXAM 1950 URINE MICROALBUMIN 1950 SHINGLES VACCINES (#1) 1992 65+ PNEUMOCOCCAL VACCINE (2 of 2 - 07/25/2007 01/19/2016 PPSV23) DIABETES: RETINAL EYE EXAM 07/01/2019 06/30/2017, 7, 02/11/2016, Additional history exists INFLUENZA VACCINE 10/26/2019 01/04/2018, 01/04/2018, 01/04/2018, Additional history exists Results Not on fileafter 03/05/2019 Insurance Payer Benefit Plan / Subscriber ID Effective Phone Address T ype Group Dates MEDICARE MEDICARE PART A [id number] 2007-Pres [place] Medicare AND B ent BCBS COMMERCIAL BCBS MEDICARE [id number] 2007-Pres Commercial SUPPLEMENT ent ([place]) [place] [address] Advance Directives For more information, please contact: [phone] Type Date 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
--- OUTSIDE RECORDS SUMMARY | 2020-03-05 10:57 | XMS REPORT | Continuity of Care Document ---
:1940 Author Organization [facility] t Address [address] [place] [address] Care Team Providers Name Role Phone Scottie HARVEY Primary Care Physician Aicha Tripp MD Attending Clinician Godfrey Luke Attending Clinician Unavailable Maribel HARDEN Attending Clinician Unavailable Lionel HARVEY, VFederica Attending Clinician Maranda Arriaza NP Attending Clinician Mohsen Loera Attending Clinician Eren Dwyer Attending Clinician LIONEL Admitting Clinician Unavailable Payers Payer Name Policy Type Policy Effective Date Expiration Date Sour ce Number MEDICAREMEDICARE PART [id number] 2007 Alberto farooqkaity Claudia AND 00:00:00 Restoration [id number] 2007[place] [place] COMMERCIALBCBS [id number] 2007 [place] MEDICARE 9 00:00:00 Restoration [id number] -[facility] ercial Problems Condition Condition Condition Status Onset Resolution Last Treating Co mments Source Name Details Category Date Date Treatment Clinician Date RADICULOPA Diagnosis Active 2018-08-02 Memoria THY 4-04 10:08:00 l 00:00: Gopal RADICULOPA 00 THY Active 06/28/2018 [facility] LUMBAR Diagnosis Active [id number] Mem oria RADICULOPA 2-05 13:15:00 l THY LUMBAR 00:00: Gopal RADICULOPA 00 THY Active 02/28/2017 [facility] Gopal 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 Ashwin [...] 11:31:04 l (current) 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 (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) drug therapy 10/04/2018 [facility] Other Problem 2018-10-04 Memor ia spondylosi 11:31:04 l s with Other Gopal radiculopa spondylosi thy, s with lumbar radiculopa [...] 2018-10-04 M emoria ve 11:31:04 l disorder, Gopal systemic Hypertensi arterial ve (disorder) disorder, systemic [...] Gopal REGION RADICULOPA THY, LUMBAR REGION Active [facility] Gopal Interverte Problem [id number] 2018-10-04 Memoria bral [...] codeine Active 2003-03 Memoria 0-27 l 00:00: Gopal 00 Family History Family Member Diagnosis Comments Start Date Stop Date Source Natural brother Diabetes Pasquale Holder ethodist Natural father Heart disease Pasquale Restoration Natural father Hypertension Pasquale Restoration Natural mother Hypertension Pasquale Pinzonist Natural son Diabetes Pasquale Kenneyo irina Social History Social Habit Start Date Stop Date Quantity Comments Source Sex Assigned At [employer] Glory ethodist Exposure to Not sure Giordano Lana arevalo SARS-CoV-2 (event) Tobacco use and 2020-02-16 2020-02-16 Never used Pasquale Holder ethodist exposure 00:00:00 00:00:00 Alcohol intake 2020-02-16 2020-02-16 Current [employer] thodist 00:00:00 00:00:00 non-drinker of alcohol (finding) Social History 2017[facility]03[facility]03 [facility] 17:17:51 Smoking Status Start Date Stop Date Source Never smoker Giordano Alcira t Medications Ordered Filled Start Stop Current Ordering Indication Dosage Frequency Signature Comments Components Source Medication Medication Date Date Medication? Clinician (SIG) Name Name apixaban 2019-03 Yes 5mg Q.5D Take 1 Giordano (Eliquis) 5 1-24 tablet (5 Met hodi mg tablet 00:00: mg total) st 00 by mouth 2 (two) times a day. spironolact 2019-03 No 25mg QD Take 25 mg Giordano one 1-20 11-20 by mouth Methodi (ALDACTONE) 17:20: 00:[address] 25 MG 29 :00 tablet valsartan 2019-03 Yes 80mg QD Take 1 [place] (DIOVAN) 80 1-20 tablet (80 Me thodi MG tablet 00:00: mg total) st 00 by mouth daily. apixaban 2019-03 Yes 5mg Q.5D Take 1 Giordano (Eliquis) 5 1-20 tablet (5 Met hodi mg tablet 00:00: mg total) st 00 by mouth 2 (two) times a day. metoprolol 2019-03- Yes 50mg QD Take 1 [place] succinate 1-20 11-20 tablet (50 Met hodi XL 00:00: 23:59 mg total) st (TOPROL-XL) 00 :00 by mouth 50 mg 24 hr daily. tablet atorvastati 2019-03- Yes 40mg QD Take 1 Ashwin ston n (LIPITOR) 04-15-20 tablet (40 M ethodi 40 mg 00:00: 23:59 mg total) st tablet 00 :00 by mouth daily. apixaban 2019-03 2020- No 5mg Q.5D Take 1 [place] (Eliquis) 5 04-15- tablet (5 Me thodi mg tablet 00:00: 00:00 mg total) st 00 :00 by mouth 2 (two) times a day. furosemide 2019-03 Yes 20mg Q24H Take 20 mg [place] (LASIX) 20 04-04 by mouth Metho di mg tablet 15:00: daily as st 13 needed. traZODone 2019-03 Yes 50mg QD Take 50 mg [place] (DESYREL) 1-09 by mouth Method i 50 MG 15:00: nightly as st tablet 13 needed for sleep. therapeutic 2019-03 Yes 1{tbl} QD Take 1 [place] multivitami 1-09 tablet by Met hodi n 15:00: mouth st (THERAGRAN) 13 daily. tablet gabapentin 2019-03 Yes 300mg Q.5D Take 300 [place] (NEURONTIN) 1-09 mg by Methodi 300 mg 15:00: mouth 2 st capsule 13 (two) times a day. magnesium 2019-03 Yes 400mg QD Take 400 Ashwin ston oxide 1-09 mg by Methodi (MAG-OX) 15:00: mouth st 400 mg 13 daily. (241.3 mg magnesium) tablet levothyroxi 2019- No 75ug QD Take 75 [place] ne 8-14 08-14 mcg by Methodi (SYNTHROID) 16:42: 00:[address] 75 mcg 16 :00 daily. tablet levothyroxi Yes 75ug QD Take 1 [place] ne 8-14 tablet (75 Methodi (SYNTHROID) 00:00: mcg total) st 75 mcg 00 by mouth tablet daily. metoprolol 2020- No 50mg QD Take 50 mg Giordano succinate 09-25 0702 by mouth Metho di XL 20:58: 00:[address] (TOPROL-XL) 55 :00 50 mg 24 hr tablet aspirin Yes 81mg QD Take 1 Pasquale (ECOTRIN) 09-25 tablet (81 Meth james 81 [...] ORAL) ascorbic 2020-0 Yes QD Take by Kelleto n acid 09-25 mouth Methodi (VITAMIN C 19:28: daily. st ORAL) 45 flaxseed 2020-0 Yes Giordano oil oil 09-25 Methodi 19:28: st 45 TURMERIC 2020-0 2020- No QD Take by Gerald on ORAL 09-25 mouth Methodi 19:28: 00:[address] 27 :00 COCONUT OIL 2020-0 2020- No Take by Alberto farooqton ORAL 09-25 mouth. Methodi 19:27: 00:00 st 32 :00 carvediloL 2019- 2020- No 12.5mg Q.5D Take 1 Alberto sexton (COREG) 09-25 11-20 tablet Methodi 12.5 MG 00:00: 00:00 (12.[address] tablet 00 :00 total) by mouth 2 (two) times a day. valsartan 2019-0 2020- No 40mg QD Take 1 Gerald on (DIOVAN) 40 1-15 11-20 tablet (40 M ethodi MG tablet 00:00: 00:00 mg total) st 00 :00 by mouth daily. levothyroxi 2018-03 2020- No TAKE 1 Ashwin quintanilla ne 04-14 TABLET Methodi (SYNTHROID) 00:00: 00:[address] 50 mcg 00 :00 MORNING tablet carvedilol 2018-03 2020- No 12.5mg Q.5D Take 1 Alberto sexton (COREG) 009-25 tablet Methodi 12.5 MG 00:00: 00:00 (12.[address] tablet 00 :00 total) by mouth 2 (two) times a day with meals. metFORMIN 2018-03- No 1000mg Q.5D Take 1 Ashwin ston (GLUCOPHAGE 0- tablet Metho di ) 1,000 mg 00:00: 00:00 (1,000 mg s t tablet 00 :00 total) by mouth 2 (two) times a day with meals. valsartan 2018-03- No 40mg QD Take 1 [place] (DIOVAN) 40 0-15 tablet (40 M ethodi MG tablet 00:00: 00:00 mg total) st 00 :00 by mouth daily. atorvastati 2019- No TAKE 1 Ashwin ston n (LIPITOR) 11-05 TABLET Metho di 10 MG 00:00: 00:[address] tablet 00 :00 acetaminoph No Notes: Max Memoria en 08-02 acetaminop l 15:53: hen 4000 [place] 00 mg/day (4 gm/day). (Same as: Tylenol Extra Strength) Lactated No 1,000 mL, Alvarez ye Ringers IV 08-02 Rate: 125 l 1,000 mL 15:23: ml/hr, Gopal 00 Infuse over: 8 hr, [...] ne 08-02 Same as l 15:23: Dilaudid Gopal 00 Acetaminoph No Notes: Do M emoria en 325 MG / 08-02 not exceed l Hydrocodone 15:23: 4gm/day of Gopal Bitartrate 00 acetaminop 10 MG Oral hen. Tablet (Same as: [place] 325/10) Ondansetron No Notes: Alvarez ye - (Same as: l 15:23: Zofran) Fielding 00 MEDICATION WASTE Product Size: 4 mg Product Wasted: ___ mg 72 HR No 1 patch, Memoria Scopolamine 08-02 Route: l 0.0139 14:21: TOP, Drug Tommie n MG/HR 00 Form: Transdermal ERFILM, Patch Dosing Weight 63.182, kg, PRE OP, Start date: 08/02/18 9:21:00 CDT, Duration: 30 day, Stop date: 09/01/18 9:20:00 CDT Zofran No Notes: Memoria 08-02 (Same as: l 14:19: Zofran) Gopal 00 MEDICATION WASTE Product Size: 4 mg Product Wasted: ___ mg Saline No Notes: Memoria Flush 0.9% 08-02 (Same as: l 14:10: BD [place] 00 Posiflush) Lactated No 1,000 mL, Alvarez ye Ringers IV 08-02 Rate: 125 l 1,000 mL 14:10: ml/hr, Field[place] Infuse over: 8 hr, Route: IV, Dosing Weight 63.182 kg, Total Volume: 1,000, Start date: 08/02/18 9:10:00 CDT, Duration: 30 day, Stop date: 09/01/18 9:09:00 CDT, 1.62, m2 Hydromorpho No Notes: Alvarez ye ne 18 Same as l 14:18: Dilaudid Ondansetron No Notes: Alvarez ye -18 (Same as: l 14:18: Zofran) Fielding 00 MEDICATION WASTE Product Size: 4 mg Product Wasted: ___ mg Lactated No 1,000 mL, Alvarez ye Ringers IV 07-12 Rate: 125 l 1,000 mL 14:18: ml/hr, Gopal 00 Infuse over: 8 hr, Route: IV, Dosing Weight 63.182 kg, Total Volume: 1,000, Start date: 07/12/18 9:18:00 CDT, Duration: 30 day, Stop date: 08/11/18 9:17:00 CDT, 1.62, m2 Acetaminoph No Notes: Alvarez ye en 10 MG/ML -18 Infuse l Injectable 14:18: over 15 Herm liam Solution 00 minutes Do not exceed 4gm/day of acetaminop hen MEDICATION WASTE Product Size: 1000 mg Product Wasted: ___ mg Acetaminoph No Notes: Do M emoria en 325 MG / 4-18 not exceed l Hydrocodone 14:18: 4gm/day of Gopal Bitartrate 00 acetaminop 10 MG Oral hen. Tablet (Same as: [place] 325/10) Pepcid No 20 mg, Memoria 4-18 Route: l 13:27: IVPB, [place] 00 ONCE, Dosing Weight 63.182, kg, Start date: 07/12/18 8:27:00 CDT, Stop date: 07/12/18 8:27:00 CDT Zofran No 4 mg, Memoria 18 Route: IV, l 13:26: ONCE, Dosing Weight 63.182, kg, Start date: 07/12/18 8:26:00 CDT, Stop date: 07/12/18 8:26:00 CDT Lactated No 1,000 mL, Alvarez ye Ringers IV 18 Rate: 30 l 1,000 mL 12:52: ml/hr, Infuse over: 33.3 hr, Route: IV, Dosing Weight 62.727 kg, Total Volume: 1,000, Start date: 07/12/18 7:52:00 CDT, Duration: 30 day, Stop date: 08/11/18 7:51:00 CDT, 1.62, m2 Saline No Notes: Memoria Flush 0.9% -18 Same as: l 12:52: BD [place] 00 Posiflush Sterile Ondansetron 2017-03 No Notes: Alvarez ye 2-21 (Same as: l 16:20: Zofran [place] 00 ODT) Lactated 2017-03 No 1,000 mL, Alvarez ye Ringers IV 2-21 Rate: 125 l 1,000 mL 16:20: ml/hr, Gopal 00 Infuse over: 8 hr, Route: IV, Dosing Weight 62.727 kg, Total Volume: 1,000, Start date: 03/16/18 10:20:00 NEUROLOGY TECHNOLOGIST, Duration: 30 day, Stop date: 04/15/18 10:19:00 NEUROLOGY TECHNOLOGIST, 1.62, m2 Acetaminoph 2017-03 No Notes: Alvarez ye en 10 MG/ML 2-21 Infuse l Injectable 16:20: over 15 Herm liam Solution 00 minutes Do not exceed 4gm/day of acetaminop hen MEDICATION WASTE Product Size: 1000 mg Product Wasted: ___ mg Acetaminoph 2017-03 No Notes: Do M emoria en 325 MG / 2-21 not exceed l Hydrocodone 16:20: 4gm/day of Fielding Bitartrate 00 acetaminop 10 MG Oral hen. Tablet (Same as: [place] 325/10) Hydromorpho 2017-03 No Notes: Alvarez ye ne 2-21 Same as l 16:20: Dilaudid Ondansetron 2017-03 No Notes: Alvarez ye 2-21 (Same as: l 14:12: Zofran) Fielding MEDICATION WASTE Product Size: 4 mg Product Wasted: ___ mg Saline 2017-03 No Notes: Memoria Flush 0.9% 2-21 Same as: l 14:03: BD Posiflush Sterile Lactated 2017-03 No 1,000 mL, Alvarez ye Ringers IV 2-21 Rate: 125 l 1,000 mL 14:03: ml/hr, Field[place] Infuse over: 8 hr, Route: IV, Dosing Weight 62.727 kg, Total Volume: 1,000, Start date: 03/16/18 8:03:00 NEUROLOGY TECHNOLOGIST, Duration: 30 day, Stop date: 04/15/18 8:02:00 NEUROLOGY TECHNOLOGIST, 1.62, m2 Furosemide 2017-03 Yes 20 mg = 1 Me moria 20 MG Oral 2-18 tab, PO, l Tablet 17:11: Daily, 0 Refill(s) Lactated 2016-03 No 1,000 mL, Alvarez ye Ringers IV 2-14 Rate: 40 l 1,000 mL 19:59: ml/hr, [place] 00 Infuse over: 25 hr, Route: IV, Dosing Weight 64.091 kg, Total Volume: 1,000, Start date: 03/09/17 13:59:00 NEUROLOGY TECHNOLOGIST, Duration: 30 day, Stop date: 04/08/17 13:58:00 NEUROLOGY TECHNOLOGIST, 1.64, m2 Hydroxyzine 2016-03 Yes 0 Memori a 2-14 Refill(s) l 19:40: Gopal 00 Melatonin 2016-03 Yes 10 mg, Memori a 2-14 Bedtime, 0 l 19:39: Refill(s) Gopal Tart prescott 2016-03 Yes Tart Memori a 2-08 prescott, l 17:29: Daily, [place] 00 Refill(s) 0 Vitamin B 2016-03 Yes 1 tab, PO, Me moria Complex 2-08 Daily, 0 l oral tablet 17:27: Refill(s) H ermann 00 [place]-3 2016-03 Yes 1,000 mg = Alvarez ye 1000 mg 2-08 1 cap, PO, l oral 17:27: Daily, 0 [place] capsule 00 Refill(s) Osteo 2016-03 Yes 1 tab, PO, Memori a Bi-Flex 2-08 Daily, 0 l oral tablet 17:26: Refill(s) H ermann 00 Vitamin D3 2016-03 Yes 1,000 Memori a 1000 intl 208 IntlUnit = l units oral 17:26: 1 cap, PO, H ermann capsule 00 Daily, 0 Refill(s) spironolact 2016-03 Yes 25 mg = 1 M emoria one 25 mg 2-08 tab, PO, l oral tablet 17:23: BID, 0 Herm liam 00 Refill(s) valsartan 2016-03 Yes 80 mg = 1 Mem oria 80 mg oral 2-08 tab, PO, l tablet 17:22: Daily, 0 [place] 00 Refill(s) levothyroxi 2016-03 Yes 50 Memori a ne 50 mcg 2-08 microgram l (0.05 mg) 17:22: = 1 tab, Herm liam oral tablet 00 PO, Daily, 0 Refill(s) carvedilol 2016-03 Yes 25 mg = 1 Me moria 25 mg oral 2-08 tab, PO, l tablet 17:21: BID, 0 Fielding 00 Refill(s) atorvastati 2016-03 Yes 10 mg [...] Gopal Respitory Rate 2018-08-02 15:39:00 Memori al [place] Respitory Rate 2018-08-02 15:33:00 Memori al [place] Systolic (mm Hg) 2018-08-02 15:33:00 Alvarez rial [place]ing Diastolic (mm Hg) 2018-08-02 15:33:00 Mem orial [place] Systolic (mm Hg) 2018-08-02 15:18:00 Alvarez rial Gopal Diastolic (mm Hg) 2018-08-02 15:18:00 Mem orial Gopal Respitory Rate 2018-08-02 15:18:00 Memori al Gopal Height 2018-07-17 16:07:00 144.78 cm Memorial Fielding BMI Calculated 2018-07-17 16:07:00 Memori al Gopal Weight 2018-07-17 16:07:00 [facility] Fielding Systolic (mm Hg) 2018-07-12 15:26:00 Alvarez rial [place]ing Diastolic (mm Hg) 2018-07-12 15:26:00 Mem orial Gopal Respitory Rate 2018-07-12 15:26:00 Memori al Gopal Systolic (mm Hg) 2018-07-12 15:16:00 Alvarez rial [place] Diastolic (mm Hg) 2018-07-12 15:16:00 Mem orial Fielding Respitory Rate 2018-07-12 15:16:00 Memori al Gopal Systolic (mm Hg) 2018-07-12 15:01:00 Alvarez rial [place]ing Diastolic (mm Hg) 2018-07-12 15:01:00 Mem orial Fielding Respitory Rate 2018-07-12 15:01:00 Memori al Gopal Weight 2018-07-12 13:18:00 Memorial Gopal BMI Calculated 2018-07-12 13:18:00 Memori al Gopal Height 2018-07-12 13:18:00 144.78 cm Memorial Gopal Weight 2018-07-12 12:50:00 Memorial [place] BMI Calculated 2018-07-12 12:50:00 Memori al [place] Height 2018-06-28 20:00:00 144.78 cm Memorial Gopal Heart Rate 2018-03-16 15:45:00 Memorial [place] Systolic (mm Hg) 2018-03-16 15:45:00 Alvarez rial Gopal Diastolic (mm Hg) 2018-03-16 15:45:00 Mem orial [place] Respitory Rate 2018-03-16 15:45:00 Memori al Gopal Respitory Rate 2018-03-16 15:30:00 Memori al Gopal Heart Rate 2018-03-16 15:30:00 Memorial Gopal Systolic (mm Hg) 2018-03-16 15:30:00 Alvarez rial [place] Diastolic (mm Hg) 2018-03-16 15:30:00 Mem orial [place]ing Heart Rate 2018-03-16 15:15:00 Memorial [place] Systolic (mm Hg) 2018-03-16 15:15:00 Alvarez rial Gopal Diastolic (mm Hg) 2018-03-16 15:15:00 Mem orial [place] Respitory Rate 2018-03-16 15:15:00 Memori al Gopal Weight 2018-03-16 13:58:00 Memorial [place] BMI Calculated 2018-03-16 13:58:00 Memori al [place] Height 2018-03-13 17:08:00 144.78 cm Memorial [place] Respitory Rate 2017-03-09 21:15:00 Memori al Gopal Systolic (mm Hg) 2017-03-09 21:15:00 Alvarez rial [place]ing Diastolic (mm Hg) 2017-03-09 21:15:00 Mem orial Gopal Respitory Rate 2017-03-09 21:00:00 Memori al Gopal Systolic (mm Hg) 2017-03-09 21:00:00 Alvarez rial Gopal Diastolic (mm Hg) 2017-03-09 21:00:00 Mem orial Gopal Respitory Rate 2017-03-09 20:45:00 Memori al [place]ing Systolic (mm Hg) 2017-03-09 20:45:00 Alvarez rial Gopal Diastolic (mm Hg) 2017-03-09 20:45:00 Mem orial Gopal Weight 2017-03-09 19:27:00 Dayana Herron BMI Calculated 2017-03-09 19:27:00 David al Gopal Height 2017-03-03 17:10:00 144.78 cm Dayana Herron Procedures Procedure Date / Time Performed Performing Clinician Sourc e Lumbar epidural steroid 2018-03-16 06:00:00 Alvarez rial Gopal injection ICD - Internal cardiac 2004-03-27 00:00:00 Naveedor ial Gopal defibrillator procedure Anaesthesia for total [facility] ermann shoulder replacement<sup>1</sup> Laminectomy<sup>2</sup> [facility] TKR -[facility] replacement of knee joint using cement<sup>3</sup> Plan of Care Planned Activity Planned Date Details Comments Source Future Scheduled 2019-10-26 INFLUENZA VACCINE [place] [facility] 00:00:00 [code = INFLUENZA VACCINE] Future Scheduled 2019-07-01 DIABETES: RETINAL EYE [facility] Test 00:00:00 EXAM [code = DIABETES: RETINAL EYE EXAM] Future Scheduled 2007-07-25 65+ PNEUMOCOCCAL [employer] Restoration Test 00:00:00 VACCINE (2 of 2 - PPSV23) [code = 65+ PNEUMOCOCCAL VACCINE (2 of 2 - PPSV23)] Future Scheduled 1992 SHINGLES VACCINES (#1) [facility] Test 00:00:00 [code = SHINGLES VACCINES (#1)] Future Scheduled 1952 DIABETIC FOOT EXAM [place] [facility] 00:00:00 [code = DIABETIC FOOT EXAM] Future Scheduled 1952 URINE MICROALBUMIN [place] [employer] 00:00:00 [code = URINE MICROALBUMIN] Encounters Start End Encounter Admission Attending Care Care Encounter Source Date/Time Date/Time Type Type Clinicians Facility Department ID 2020-02-14 2020-02-14 Outpatient AMELIARELCYRIL [facility] [id number] Giordano 00:00:00 00:00:00 , KRYSTAL [facility] 2019-10-28 2019-10-28 Outpatient VALDERRABAN [facility] [id number] [employer] 00:00:00 00:00:00 ONELY 000 Meth james 2019-07-29 2019-07-29 Outpatient VALDERRABAN [facility] [id number] [employer] 00:00:00 00:00:00 O, NELY 421 Meth james 2019-04-29 2019-04-29 Outpatient VALDERRABAN [facility] [id number] [employer] 00:00:00 00:00:00 O, NELY 375 Meth james 2019-01-28 2019-01-28 Outpatient [facility] [id number] [employer] 00:00:00 00:00:00 538 Method i 2018-12-28 2018-12-28 Outpatient KURRELMEYER [facility] [id number] [employer] 00:00:00 00:00:00 , KRYSTAL 392 Method i 2018-08-02 2018-08-02 Outpatient Evaristo [facility] [id number] 08:53:00 23:59:00 Jarod Connolly 2018-08-02 2018-08-02 Outpatient [facility] [id number] 08:53:00 08:53:00 [facility] 2018-07-12 2018-07-12 Outpatient Evaristo [facility] [id number] 07:41:00 23:59:00 Jarod Gonzalez 2018-07-12 2018-07-12 Outpatient [facility] [id number] 07:41:00 07:41:00 [facility] 2018-03-16 2018-03-16 Outpatient Evaristo [facility] [id number] 07:33:00 23:59:00 Jarod Howard 2017-03-09 2017-03-09 Outpatient Yuliya [facility] [id number] 13:07:00 23:59:00 [place] 01 [place] Results This patient has no known results.
--- OUTSIDE RECORDS SUMMARY | 2020-03-05 10:57 | XMS REPORT | Continuity of Care Document ---
:1940 Author Organization [facility] [place] Care Team Providers Name Role Phone [facility] [place] Unavailable Un available Problems Problem Status Onset Classification Date Comments Sourc e Date Reported RADICULOPATHY Active Naveedori harley 019 [place] Intervertebral disc 10/04/2018 Ortho disorders with 018 and S pine radiculopathy, lumbar region LUMBAR RADICULOPATHY Active [facility] 017 Gopal Cardiomyopathy Active Problem 10/04/2018 MH O rtho [...] Ortho narcotic agent status and Spine [facility] 10/04/2018 Ortho (current) drug therapy and Spine Other spondylosis with 10/04/2018 Ortho radiculopathy, lumbar and Spine region RADICULOPATHY, LUMBAR Active [facility] Medications Medication Details Route Status Patient Ordering [...] MG acetaminophen. Spine Oral Tablet (Same as: [place] 325/10) Ondansetron Notes: (Same No Longer as: [...] MG acetaminophen. Spine Oral Tablet (Same as: [place] 325/10) Pepcid 20 mg, Route: Inactive IVPB, [...] Total Volume: 1,000, Start date: 03/16/18 10:20:00 FOUR SLIDE OPERATOR, Duration: 30 day, Stop date: 04/15/18 10:19:00 FOUR SLIDE OPERATOR, 1.62, m2 Acetaminophen 10 Notes: Infuse No Longer MG/ML Injectable over 15 minutes Active 2017 Ortho Solution Do not exceed and 4gm/day of Spine acetaminophen MEDICATION WASTE Product Size: 1000 mg Product Wasted: ___ mg Acetaminophen Notes: Do not No Longer 325 MG / exceed 4gm/day Active 2017 Ortho Hydrocodone of and Bitartrate 10 MG acetaminophen. Spine Oral Tablet (Same as: [place] 325/10) Hydromorphone Notes: Same as No Longer [...] Total Volume: 1,000, Start date: 03/16/18 8:03:00 FOUR SLIDE OPERATOR, Duration: 30 day, Stop date: 04/15/18 8:02:00 FOUR SLIDE OPERATOR, 1.62, m2 Furosemide 20 MG 20 mg = 1 tab, Active Oral Tablet PO, Daily, 0 2017 Ortho Refill(s) and Spine Lactated Ringers 1,000 mL, Rate: No Longer 03/09 IV 1,000 mL 40 ml/hr, Active 2016 Ortho Infuse over: 25 and hr, Route: IV, Spine Dosing Weight 64.091 kg, Total Volume: 1,000, Start date: 03/09/17 13:59:00 FOUR SLIDE OPERATOR, Duration: 30 day, Stop date: 04/08/17 13:58:00 FOUR SLIDE OPERATOR, 1.64, m2 Hydroxyzine 0 Refill(s) Active 2016 Ortho and Spine Melatonin 10 mg, Bedtime, Active 0 Refill(s) 2017 Ortho and Spine Tart prescott Tart prescott, Active Daily, 2017 Ortho Refill(s) 0 and Spine Vitamin B 1 tab, PO, Active Complex oral Daily, 0 2016 Ortho tablet Refill(s) and Spine [place]-3 1000 mg 1,000 mg = 1 Active [...] DX EXAM: XR CHEST 1 VIEW 07/12/2018 [facility] DATE: 07/12/2018 9:19 CDT INDICATION: [...] Location Location Encounter Encounter Reason Attending ADM MD Stat us Source Details Type Number For Provider Date Date Visit Day [id number] Shivam 03/09 03/10 [facility] Surgery [facility] Ortho Orthopedic and and Spine Spine [facility] Day [id number] Jarod 03/16 03/17 [facility] Ortho Orthopedic and and Spine Spine [facility] [id number] Jarod 07/12 07/13 [facility] Ortho Orthopedic and and Spine Spine [facility] [id number] Jarod 08/02 08/03 [facility] Orthopedic and and Spine Spine [facility] Procedures Procedure Code Date Perfomer Comments Source Lumbar epidural [id number] 03/16/2018 Ortho and steroid injection Spine ICD - Internal [id number] 03/27/2004 Ortho a nd cardiac Spine defibrillator procedure Anaesthesia for [id number] right Ortho and total shoulder Spine replacement<sup>1</ sup> Laminectomy<sup>2</ [id number] lumbar MH Or tho and sup> Spine TKR -Total [id number] bilateral Ortho and prosthetic Spine replacement of [...] tab, PO, Daily melatonin 10 mg, Bedtime [place]-3 1000 mg oral capsule 1,000 mg = [...] (_ intact):_ Impressions: _ Diagnosis: -lumbar radiculopathy 94303 -lumbago 1783 Treatment plan:_ bilat L3-5 TFESI [...] tab, PO, Daily melatonin 10 mg, Bedtime [place]-3 1000 mg oral capsule 1,000 mg = [...] (_ intact):_deferred Impressions: _ Diagnosis: -lumbosacral spondylosis 47179 -lumbar disc degeneration [id number] -lumbar radiculopathy 49952 -lumbago 1783 - Treatment plan:_ right L3-5 [...] patient was prepped and draped in the [facility] sterile fashion using DuraPrep and a fenestrated [...]
[2020-03-05 12:44] LABS: Absolute Lymphocytes (CBC) 1.7 K/uL (0.7-4.9); Basophils % 0.5 % (0-1.3); Lymphocytes % 14.6 % (15.3-44.8); MPV 7.8 fL (7.6-11.3); RBC Red Blood Cell Count 4.19 M/uL (3.86-4.86)
[2020-03-05 12:53] LABS: Protime INR 2.03
[2020-03-05 13:06] LABS: ALT/SGPT 35 U/L (12-78); AST/SGOT 35 U/L (15-37); Albumin 3.9 g/dL (3.4-5.0); Alkaline Phosphatase 101 U/L (45-117); BUN Blood Urea Nitrogen 20 mg/dL (7-18); Bicarbonate 26 mmol/L (21-32); Bilirubin Direct 0.2 mg/dL (0-0.2); Bilirubin Total 0.7 mg/dL (0.2-1.0); Glucose Level 83 mg/dL (74-106); Magnesium 2.2 mg/dL (1.8-2.4); NT PRO-BNP 613 pg/mL (<450); Potassium 4.3 mmol/L (3.5-5.1); Protein, Total 8.2 g/dL (6.4-8.2); Sodium Level 134 mmol/L (136-145); Troponin (Emerg Dept Use Only) < 0.02 ng/mL (0.0-0.045)
[2020-03-05] MEDS ORDERED: CYCLOBENZAPRINE 10 MG TAB ONE (13:07)
[2020-03-05] MEDS ORDERED: ONDANSETRON 4 MG (ODT) TAB ONE (13:15)
--- NOTE | 2020-03-05 14:08 | RAD REPORT ---
EXAM DESCRIPTION: RAD - Chest Single View - 03/05/2020 1:56 pm CLINICAL HISTORY: CHEST PAIN Chest pain. COMPARISON: Chest Single View dated 01/25/2020; Chest Single View dated 05/09/2019; Chest Pa And Lat (2 Views) dated 01/23/2019; Chest Single View dated 01/22/2019 FINDINGS: Portable technique limits examination quality. The lungs are grossly clear. The heart is mildly prominent with multilead pacer/defibrillator device. Degenerative changes are present in both shoulders. Proximal right humeral prosthesis. IMPRESSION: No acute intrathoracic process suspected.
--- NOTE | 2020-03-05 15:07 | ER ---
Nurse's Notes [facility] Name: Dayana Sumner Age: 79 yrs Sex: Female : 1940 Arrival Date: 03/05/2020 Time: 10:43 Bed 5 Private MD: Diagnosis: Chest pain, unspecified;Muscle spasm-Right chest wall Presentation: 03/05 11:03 Chief complaint: Patient states: right sided lower chest pain since Monday , iw intermittent , Monday or Monday started on left sided, lasts 20 seconds at a time. Coronavirus screen: At this time, the client does not indicate any symptoms associated with coronavirus-19. Ebola Screen: Patient negative for fever greater than or equal to 101.5 degrees Fahrenheit, and additional compatible Ebola Virus Disease symptoms Patient denies exposure to infectious person. Patient denies travel to an Ebola-affected area in the 21 days before illness onset. No symptoms or risks identified at this time. Initial Sepsis Screen: Does the patient meet any 2 criteria? No. Patient's initial sepsis screen is negative. Does the patient have a suspected source of infection? No. Patient's initial sepsis screen is negative. Risk Assessment: Do you want to hurt yourself or someone else? Patient reports no desire to harm self or others. Onset of symptoms was March 01, 2020. 11:03 Method Of Arrival: Wheelchair iw 11:03 Acuity: HARSHIL 3 iw Historical: - Allergies: 11:05 Codeine; iw - PMHx: 11:05 Diabetes - NIDDM; Hypertension; neuropathy; iw Screenin:00 Abuse screen: Denies threats or abuse. Nutritional screening: No deficits noted. em Tuberculosis screening: No symptoms or risk factors identified. Fall Risk None identified. Assessment: 12:30 General: Appears in no apparent distress. uncomfortable, Behavior is calm, cooperative, em appropriate for age, Denies fever. Pain: Complains of pain in right lateral posterior chest and right lateral anterior chest Pain does not radiate. Pain began 4 days ago. Neuro: Level of Consciousness is awake, alert, obeys commands, Oriented to person, place, time, situation, Appropriate for age. Cardiovascular: Capillary refill < 3 seconds Patient's skin is warm and dry. Respiratory: Airway is patent Respiratory effort is even, unlabored, Respiratory pattern is regular, symmetrical. GI: Abdomen is flat, Reports nausea, vomiting. Derm: Skin is intact, is fragile, is thin, Skin is pink, warm \T\ dry. Musculoskeletal: Capillary refill < 3 seconds, Range of motion: intact in all extremities. 13:30 Reassessment: Patient appears in no apparent distress at this time. Patient and/or em family updated on plan of care and expected duration. Pain level reassessed. Patient is alert, oriented x 3, equal unlabored respirations, skin warm/dry/pink. 14:53 Reassessment: Patient appears in no apparent distress at this time. Patient and/or em family updated on plan of care and expected duration. Pain level reassessed. Patient is alert, oriented x 3, equal unlabored respirations, skin warm/dry/pink. Patient states feeling better. Patient states symptoms have improved. Vital Signs: 11:03 BP 125 / 89; Pulse 80; Resp 18; Temp 98.3; Pulse Ox 99% on R/A; iw 12:30 BP 149 / 72; Pulse 78; Resp 18; Pulse Ox 98% on R/A; em 14:00 BP 133 / 68; Pulse 79; Resp 18; Pulse Ox 97% on R/A; em 15:23 BP 134 / 78; Pulse 74; Resp 18; Pulse Ox 99% on R/A; em ED Course: 10:43 Patient arrived in ED. ds1 11:05 Triage completed. iw 11:57 Jorge August MD is Attending Physician. kdr 12:00 Jose De Jesus Vogel, RN is Primary Nurse. em 12:27 Initial lab(s) drawn, by me, sent to lab. Inserted saline lock: 20 gauge in right dh3 forearm, using aseptic technique. Blood collected. 12:30 Patient has correct armband on for positive identification. Call light in reach. Side em rails up X 1. Side rails up X2. prize coordinator on. 13:56 XRAY Chest (1 view) In Process Unspecified. EDMS Administered Medications: 13:03 Drug: Zofran (Ondansetron) 4 mg Route: PO; em 13:30 Drug: Flexeril 5 mg Route: PO; em Outcome: 15:07 Discharge ordered by . kdr 15:26 Patient left the ED. em Signatures: Dispatcher [employer] EDMS Jorge August MD MD kdr Jose De Jesus Vogel, RN RN Asuncion Bourne ds1 Maya Serrano RN RN iw Lina Gonzalez 3 Corrections: (The following items were deleted from the chart) 11:06 11:03 Pulse 80bpm; Resp 18bpm; Pulse Ox 99% RA; iw iw
--- NOTE | 2020-03-05 15:07 | EDPHYS ---
Physician Documentation [facility] Name: Dayana Sumner Age: 79 yrs Sex: Female : 1940 Arrival Date: 03/05/2020 Time: 10:43 Bed 5 Private MD: ED Physician Jorge August HPI: 03/05 17:43 This 79 yrs old Female presents to ER via Wheelchair with complaints of Chest kdr Pain. 17:43 The patient or guardian reports chest pain that is located primarily in the anterior kdr chest wall, right. Onset: 4 day(s) ago. The pain does not radiate. Associated signs and symptoms: Pertinent positives: She has CP mostly on the right lower lateral chest but there is also some pain on the left lateral chest as well - not as bad as on the right. her pain is very episodic and spasmodic.. The chest pain is described as aching, sharp, stabbing. Duration: The patient or guardian reports multiple episodes, that are intermittent, with no pattern, the episodes last approximately 2 second(s). Modifying factors: The symptoms are alleviated by nothing. the symptoms are aggravated by nothing. Severity of pain: At its worst the pain was moderate severe just prior to arrival, in the emergency department the pain is unchanged. The patient has not experienced similar symptoms in the past. The patient has not recently seen a physician. Historical: - Allergies: 11:05 Codeine; iw - PMHx: 11:05 Diabetes - NIDDM; Hypertension; neuropathy; iw ROS: 17:43 Constitutional: Negative for fever, chills, and weight loss, Eyes: Negative for injury, kdr pain, redness, and discharge, ENT: Negative for injury, pain, and discharge, Neck: Negative for injury, pain, and swelling, Respiratory: Negative for shortness of breath, cough, wheezing, and pleuritic chest pain, Abdomen/GI: Negative for abdominal pain, nausea, vomiting, diarrhea, and constipation, Back: Negative for injury and pain, : Negative for injury, bleeding, discharge, and swelling, MS/Extremity: Negative for injury and deformity, Skin: Negative for injury, rash, and discoloration, Neuro: Negative for headache, weakness, numbness, tingling, and seizure activity. Psych: Negative for depression, anxiety, suicide ideation, homicidal ideation, and hallucinations, Allergy/Immunology: Negative for hives, rash, and allergies, Endocrine: Negative for neck swelling, polydipsia, polyuria, polyphagia, and marked weight changes, Hematologic/Lymphatic: Negative for swollen nodes, abnormal bleeding, and unusual bruising. 17:43 Cardiovascular: Positive for chest pain, of the right lateral anterior chest. Exam: 11:17 ECG was reviewed by the Attending Physician. kdr 17:43 Constitutional: This is a well developed, well nourished patient who is awake, alert, kdr and in no acute distress. Head/Face: Normocephalic, atraumatic. Eyes: Pupils equal round and reactive to light, extra-ocular motions intact. Lids and lashes normal. Conjunctiva and sclera are non-icteric and not injected. Cornea within normal limits. Periorbital areas with no swelling, redness, or edema. Neck: Trachea midline, no thyromegaly or masses palpated, and no cervical lymphadenopathy. Supple, full range of motion without nuchal rigidity, or vertebral point tenderness. No Meningismus. Chest/axilla: Normal chest wall appearance and motion. Nontender with no deformity. No lesions are appreciated. Respiratory: Lungs have equal breath sounds bilaterally, clear to auscultation and percussion. No rales, rhonchi or wheezes noted. No increased work of breathing, no retractions or nasal flaring. Abdomen/GI: Soft, non-tender, with normal bowel sounds. No distension or tympany. No guarding or rebound. No evidence of tenderness throughout. Back: No spinal tenderness. No costovertebral tenderness. Full range of motion. Skin: Warm, dry with normal turgor. Normal color with no rashes, no lesions, and no evidence of cellulitis. MS/ Extremity: Pulses equal, no cyanosis. Neurovascular intact. Full, normal range of motion. Neuro: Awake and alert, GCS 15, oriented to person, place, time, and situation. Cranial nerves II-XII grossly intact. Motor strength 5/5 in all extremities. Sensory grossly intact. Cerebellar exam normal. Normal gait. Psych: Awake, alert, with orientation to person, place and time. Behavior, mood, and affect are within normal limits. 17:43 Cardiovascular: Regular rate and rhythm with a normal S1 and S2. No gallops, murmurs, or rubs. Normal PMI, no JVD. No pulse deficits. 17:43 Cardiovascular: Rate: normal, Rhythm: regular, Pulses: no pulse deficits are appreciated. Vital Signs: 11:03 BP 125 / 89; Pulse 80; Resp 18; Temp 98.3; Pulse Ox 99% on R/A; iw 12:30 BP 149 / 72; Pulse 78; Resp 18; Pulse Ox 98% on R/A; em 14:00 BP 133 / 68; Pulse 79; Resp 18; Pulse Ox 97% on R/A; em 15:23 BP 134 / 78; Pulse 74; Resp 18; Pulse Ox 99% on R/A; em MDM: 15:07 Patient medically screened. kdr 17:43 Data reviewed: vital signs, nurses notes, lab test result(s), EKG, radiologic studies. kdr Counseling: I had a detailed discussion with the patient and/or guardian regarding: the historical points, exam findings, and any diagnostic results supporting the discharge/admit diagnosis, lab results, radiology results, the need for outpatient follow up. 03/05 11:58 Order name: Basic Metabolic Panel; Complete Time: 14:26 kdr 03/05 11:58 Order name: CBC with Diff; Complete Time: 14:26 kdr 03/05 11:58 Order name: LFT's; Complete Time: 14:26 kdr 03/05 11:58 Order name: Magnesium; Complete Time: 14:26 kdr 03/05 11:58 Order name: NT PRO-BNP; Complete Time: 14:26 kdr 03/05 11:58 Order name: PT-INR; Complete Time: 14:26 kdr 03/05 11:58 Order name: Troponin (emerg Dept Use Only); Complete Time: 14:26 kdr 03/05 11:58 Order name: XRAY Chest (1 view); Complete Time: 14:26 kdr 03/05 11:58 Order name: EKG; Complete Time: 11:59 kdr 03/05 11:58 Order name: Cardiac monitoring; Complete Time: 12:26 kdr 03/05 11:58 Order name: EKG - Nurse/Tech; Complete Time: 12:25 kdr 03/05 11:58 Order name: IV Saline Lock; Complete Time: 12:35 kdr 03/05 11:58 Order name: Labs collected and sent; Complete Time: 12:35 kdr 03/05 11:58 Order name: O2 Per Protocol; Complete Time: 12:25 kdr 03/05 11:58 Order name: O2 Sat Monitoring; Complete Time: 12:25 kdr EC:17 Rate is 77 beats/min. Rhythm is regular, Paced with No ectopy. QRS [place] is Normal. ND kdr interval is normal. QRS interval is normal. Clinical impression: Normal paced rhythm. Administered Medications: 13:03 Drug: Zofran (Ondansetron) 4 mg Route: PO; em 13:30 Drug: Flexeril 5 mg Route: PO; em Disposition: 03/05/20 15:07 Discharged to Home. Impression: Chest pain, unspecified, Muscle spasm - Right chest wall. - Condition is Stable. - Discharge Instructions: Chest Wall Pain, [id number], Nonspecific Chest Pain, [id number], Muscle Cramps and Spasms, [id number]. - Prescriptions for Cyclobenzaprine 5 mg Oral Tablet - take 1 tablet by ORAL route 3 times per day As needed You may take one or two tablets every eight hours as needed for chest wall spasms; 30 tablet. - Medication Reconciliation Form, Thank You Letter form. - Follow up: Private Physician; When: 2 - 3 days; Reason: If symptoms return, Further diagnostic work-up, Recheck today's complaints, Continuance of care, Re-evaluation by your physician. - Problem is an ongoing problem. - Symptoms have improved. Signatures: Dispatcher [employer] EDNY Jorge August MD MD [facility] Jose De Jesus Vogel RN RN Maya Serrano RN RN Corrections: (The following items were deleted from the chart) 15:26 15:07 03/05/2020 15:07 Discharged to Home. Impression: Chest pain, unspecified; Muscle em spasm - Right chest wall. Condition is Stable. Forms are Medication Reconciliation Form, Thank You Letter, Antibiotic Education, Prescription Opioid Use. Follow up: Private Physician; When: 2 - 3 days; Reason: If symptoms return, Further diagnostic work-up, Recheck today's complaints, Continuance of care, Re-evaluation by your physician. Problem is an ongoing problem. Symptoms have improved. kdr
[2020-03-10 18:25] VITALS: TEMP 98.3
[2020-03-10 18:28] VITALS: BP 134/78; O2SAT 99
== END 2020-03-05 15:26 | disposition home or self-care (01) ==
LOC: ER 10:41
DX: M62.838 Other muscle spasm (principal); I10 Essential (primary) hypertension; Z88.5 Allergy status to narcotic agent
CPT/HCPCS: 36415; 71045; 80048; 80076; 83735; 83880; 84484; 85025; 85610; 93005; 99284